=== PATIENT | male | born 1955 | race Caucasian/White ===

== ENCOUNTER 2020-02-24 11:03 | Outpatient (CLI) | payer MEDICARE, SELFPAY ==
--- NOTE | ~2020-02-24 | US_ITS ---
EXAMINATION: US thyroid DATE: 02/24/2020 11:37 INDICATION: Nontoxic multinodular goiter TECHNIQUE: Multiple ultrasound images of the thyroid were obtained. COMPARISON: None. FINDINGS: The right thyroid lobe measures 5.4 x 2.1 x 2.0 cm. The left thyroid lobe measures 4.6 x 1.9 x 1.7 c m. The thyroid isthmus measures 11 mm in thickness. 9 mm wider than tall solid hypoechoic nodule with smooth margins and without echogenic foci in the right thyroid (TI-RADS 4, moderately suspicious , F NA if >=1.5 cm, annual followup is >1 cm). Similar appearing 4 mm hypoechoic nodule at the thyroid is thmus. There is normal echotexture, echogenicity and vascular flow throughout the thyroid gland. IMPRESSION: 1. A couple of centimeters likely benign bilateral thyroid nodules which do not meet consensus criter ia for biopsy or ultrasound follow-up. Recommend clinical follow-up with repeat imaging if there are changes on physical exam. Reviewed, dictated and finalized at location A. IMPRESSION: 1. A couple of centimeters likely benign bilateral thyroid nodules which do not meet consensus criteria for biopsy or ultrasound follow-up. Recommend clinical follow-up with repeat imaging if there are changes on physical exam.
== END 2020-02-24 11:04 | disposition home or self-care (01) ==
LOC: ANHIMG 11:06
PROVIDERS: PCP Internal Medicine; Visit Provider Nurse Practitioner
DX: E04.2 Nontoxic multinodular goiter (principal)
CPT/HCPCS: 76536

== ENCOUNTER 2020-04-06 07:45 | Outpatient (CLI) | payer MEDICARE, SELFPAY ==
[2020-04-06 08:17] LABS: Alanine Aminotransferase 20 U/L (4-50); Albumin Level 4.4 g/dL (3.5-5.1); Alkaline Phosphatase 88 U/L (38-126); Aspartate Amino Transferase 25 U/L (17-59); Bilirubin,Total 0.4 mg/dL (0.2-1.3); Blood Urea Nitrogen 18 mg/dL (9-20); Calcium 9.3 mg/dL (8.4-10.2); Carbon Dioxide 26 mmol/L (22-30); Chloride 105 mmol/L (98-107); Cholesterol 141 mg/dL (0-200); Estimated Glomerular Filt Rate > 60; Glucose 106 mg/dL (75-110); HDL Direct 23 mg/dL; Potassium 4.6 mmol/L (3.4-5.0); Sodium 138 mmol/L (137-145); Triglycerides 200 mg/dL (<150)
[2020-04-06 08:28] LABS: LDL Cholesterol Direct 83 mg/dL
[2020-04-06 08:55] LABS: Vitamin D 25 Hydroxy 59.7 ng/mL
== END 2020-04-06 07:46 | disposition home or self-care (01) ==
PROVIDERS: PCP Internal Medicine; Visit Provider Internal Medicine
DX: E78.5 Hyperlipidemia, unspecified (principal); I10 Essential (primary) hypertension; E53.8 Deficiency of other specified B group vitamins; E55.9 Vitamin D deficiency, unspecified
CPT/HCPCS: 36415; 80053; 80061; 82306; 82607

== ENCOUNTER 2020-08-21 13:09 | Outpatient (CLI) | payer MEDICARE, SELFPAY ==
[2020-08-21 14:10] LABS: Alanine Aminotransferase 22 U/L (4-50); Albumin Level 4.3 g/dL (3.5-5.1); Alkaline Phosphatase 85 U/L (38-126); Anion Gap 8 mmol/L (8-16); Aspartate Amino Transferase 25 U/L (17-59); Bilirubin,Total 0.5 mg/dL (0.2-1.3); Blood Urea Nitrogen 15 mg/dL (9-20); Calcium 9.5 mg/dL (8.4-10.2); Carbon Dioxide 31 mmol/L (22-30); Chloride 103 mmol/L (98-107); Cholesterol 150 mg/dL (0-200); Estimated Glomerular Filt Rate > 60; Glucose 92 mg/dL (75-110); HDL Direct 28 mg/dL; Potassium 3.9 mmol/L (3.4-5.0); Sodium 142 mmol/L (137-145); Triglycerides 216 mg/dL (<150)
[2020-08-21 14:21] LABS: LDL Cholesterol Direct 92 mg/dL
[2020-08-21 14:41] LABS: Prostate Specific Antigen 0.2 ng/mL (< OR = 4.0); Vitamin D 25 Hydroxy 43.5 ng/mL
== END 2020-08-21 13:10 | disposition home or self-care (01) ==
PROVIDERS: PCP Internal Medicine; Visit Provider Nurse Practitioner
DX: E78.5 Hyperlipidemia, unspecified (principal); E53.8 Deficiency of other specified B group vitamins; E55.9 Vitamin D deficiency, unspecified; C61 Malignant neoplasm of prostate
CPT/HCPCS: 36415; 80053; 80061; 82306; 82607; 84153

== ENCOUNTER 2020-12-08 07:37 | Outpatient (CLI) | payer MEDICARE, SELFPAY ==
--- NOTE | ~2020-12-08 | US_ITS ---
EXAMINATION: US thyroid DATE: 12/08/2020 09:03 INDICATION: Multinodular goiter TECHNIQUE: Multiple ultrasound images of the thyroid were obtained. COMPARISON: 02/24/2020 FINDINGS: The right thyroid lobe measures 6.2 x 2.4 x 1.9 cm. The left thyroid lobe measures 5.5 x 2.1 x 1.8 c m. Thyroid isthmus measures 6 mm in thickness. There are a couple wider than tall is slightly hypoech oic solid nodules in the right thyroid lobe with ill-defined margins and without echogenic foci (TI-R ADS 4, moderately suspicious , FNA if >=1.5 cm, annual followup is >=1 cm) measuring 10 mm and 8 mm i n maximal diameter. There is normal echotexture, echogenicity and vascular flow throughout the thyroi d gland. IMPRESSION: 1. There are a couple 10 mm and 8 mm TI RADS 4 right thyroid nodules for which 1 year follow-up ultra sound would be recommended. Reviewed, dictated and finalized at location B. [employer] IMPRESSION: 1. There are a couple 10 mm and 8 mm TI RADS 4 right thyroid nodules for which 1 year follow-up ultrasound would be recommended.
--- NOTE | ~2020-12-08 | XR_ITS ---
EXAMINATION: XR chest 2V DATE: 12/08/2020 09:00 INDICATION: Nicotine dependence, unspecified, uncomplicated. TECHNIQUE: Frontal and lateral views of the chest were obtained. COMPARISON: Chest 2 views 10/08/2013 FINDINGS: There is mild atelectasis in the lower lung zones. No pleural effusion or pneumothorax. The heart size is normal. Surgical clips in the right upper quadrant are likely from cholecystectomy. A chronic perihepatic body in left upper quadrant may be shrapnel. IMPRESSION: 1. Mild atelectasis in the lower lung zones. Reviewed, dictated and finalized at location A. E FINISHER
[2020-12-08 08:31] LABS: Hematocrit 42.7 % (42.0-52.0); Hemoglobin 14.6 g/dL (14.0-18.0); Mean Corpuscular HGB Conc 34.2 g/dl (32-36); Mean Corpuscular Hemoglobin 30.8 pg (26-34); Mean Corpuscular Volume 90.1 fl (80-100); Mean Platelet Volume 10.1 fl (7.4-10.4); Platelet Count Result 215 k/mm3 (150-375); Red Blood Count 4.74 M/mm3 (4.6-6.20); Red Cell Distribution Width 12.3 % (11.5-14.5); White Blood Count 4.7 K/mm3 (4.5-10.0)
[2020-12-08 08:48] LABS: Alanine Aminotransferase 26 U/L (4-50); Albumin Level 4.2 g/dL (3.5-5.1); Alkaline Phosphatase 69 U/L (38-126); Anion Gap 5 mmol/L (8-16); Aspartate Amino Transferase 27 U/L (17-59); Bilirubin,Total 0.6 mg/dL (0.2-1.3); Blood Urea Nitrogen 12 mg/dL (9-20); Calcium 9.4 mg/dL (8.4-10.2); Carbon Dioxide 31 mmol/L (22-30); Chloride 106 mmol/L (98-107); Cholesterol 137 mg/dL (0-200); Estimated Glomerular Filt Rate > 60; Glucose 101 mg/dL (75-110); HDL Direct 28 mg/dL; Potassium 4.2 mmol/L (3.4-5.0); Sodium 142 mmol/L (137-145); Triglycerides 193 mg/dL (<150)
[2020-12-08 08:59] LABS: LDL Cholesterol Direct 75 mg/dL
[2020-12-08 10:17] LABS: Vitamin D 25 Hydroxy 49.2 ng/mL
== END 2020-12-08 07:38 | disposition home or self-care (01) ==
PROVIDERS: PCP Internal Medicine; Visit Provider Nurse Practitioner
DX: E78.5 Hyperlipidemia, unspecified (principal); R53.83 Other fatigue; E55.9 Vitamin D deficiency, unspecified; E04.2 Nontoxic multinodular goiter; F17.200 Nicotine dependence, unspecified, uncomplicated
CPT/HCPCS: 36415; 71046; 76536; 80053; 80061; 82306; 84443; 85027

== ENCOUNTER 2021-06-03 12:09 | Outpatient (CLI) | payer MEDICARE, SELFPAY ==
--- NOTE | ~2021-06-03 | XR_ITS ---
EXAMINATION: XR hip RT min 2V DATE: 06/03/2021 12:29 INDICATION: Right hip pain. TECHNIQUE: 2 views of right hip were obtained. COMPARISON: Pelvis radiographs 12/10/2005 FINDINGS: Bone alignment is normal. No fracture. There is mild right hip osteoarthritis. There are sm all curvilinear densities overlying the pubic symphysis, likely from prior surgery. IMPRESSION: 1. Mild right hip osteoarthritis. Reviewed, dictated and finalized at location A.
== END 2021-06-03 12:10 | disposition home or self-care (01) ==
LOC: ANHIMG 12:11
PROVIDERS: PCP Internal Medicine; Visit Provider Internal Medicine
DX: M16.11 Unilateral primary osteoarthritis, right hip (principal); I10 Essential (primary) hypertension; Z51.81 Encounter for therapeutic drug level monitoring; Z79.899 Other long term (current) drug therapy
CPT/HCPCS: 73502

== ENCOUNTER 2021-09-22 15:22 | Outpatient (CLI) | payer MEDICARE, SELFPAY ==
[2021-09-22 17:28] LABS: Alanine Aminotransferase 39 U/L (4-50); Albumin Level 4.4 g/dL (3.5-5.1); Alkaline Phosphatase 74 U/L (38-126); Anion Gap 5 mmol/L (8-16); Aspartate Amino Transferase 32 U/L (17-59); Bilirubin,Total 0.3 mg/dL (0.2-1.3); Blood Urea Nitrogen 16 mg/dL (9-20); Calcium 9.3 mg/dL (8.4-10.2); Carbon Dioxide 27 mmol/L (22-30); Chloride 105 mmol/L (98-107); Cholesterol 133 mg/dL (0-200); Estimated Glomerular Filt Rate > 60; Glucose 88 mg/dL (65-110); HDL Direct 28 mg/dL; Sodium 137 mmol/L (137-145); Triglycerides 237 mg/dL (<150); Uric Acid 7.9 mg/dL (3.5-8.5)
[2021-09-22 17:39] LABS: LDL Cholesterol Direct 74 mg/dL
[2021-09-22 17:59] LABS: Prostate Specific Antigen 0.2 ng/mL (< OR = 4.0)
[2021-09-22 21:00] LABS: Vitamin D 25 Hydroxy 42.4 ng/mL
== END 2021-09-22 15:23 | disposition home or self-care (01) ==
LOC: ANHLAB 15:25
PROVIDERS: PCP Internal Medicine; Visit Provider Internal Medicine
DX: I10 Essential (primary) hypertension (principal); Z51.81 Encounter for therapeutic drug level monitoring; E78.5 Hyperlipidemia, unspecified; Z12.5 Encounter for screening for malignant neoplasm of prostate; E55.9 Vitamin D deficiency, unspecified; E53.8 Deficiency of other specified B group vitamins; E04.2 Nontoxic multinodular goiter; M10.9 Gout, unspecified; Z79.899 Other long term (current) drug therapy
CPT/HCPCS: 36415; 80053; 80061; 82306; 82607; 84153; 84443; 84550; G0103

== ENCOUNTER → 2021-10-05 08:01 | Outpatient (CLI) | payer MEDICARE, SELFPAY ==
[2021-10-06 03:58] LABS: SARS-CoV-2 RNA PCR Negative
== END ==
PROVIDERS: PCP Internal Medicine; Visit Provider Nurse Practitioner
DX: R68.89 Other general symptoms and signs (principal); Z20.822 Contact with and (suspected) exposure to COVID-19
CPT/HCPCS: C9803; U0003; U0005

== ENCOUNTER 2022-02-25 08:49 | Outpatient (CLI) | payer MEDICARE, SELFPAY ==
--- NOTE | ~2022-02-25 | CT_ITS ---
EXAMINATION:CT diagnostic chest wo con DATE: 02/25/2022 09:15 INDICATION: Contact with and suspected exposure to asbestos. TECHNIQUE: Computed tomography (CT) of the chest was performed without intravenous contrast. Automate d exposure control and iterative reconstruction technique were employed. The dose-length product (DLP ) was 456.19 mGy-cm. COMPARISON: CT abdomen and pelvis 03/20/2013 FINDINGS: The lungs demonstrate mild atelectasis. No bronchiectasis or honeycombing. No pleural plaqu es are identified. No pleural effusion. A calcified left hilar lymph node is consistent with old gran ulomatous disease. The heart size is normal. There are coronary artery calcifications. No pericardial effusion. There are changes of cholecystectomy. There is shrapnel in left upper quadrant of the abdo men. There is mild thoracic spondylosis. There is mild chronic height loss of multiple vertebral bodi es. IMPRESSION: 1. No pleural plaques or chronic interstitial lung disease. Reviewed, dictated and finalized at location A.
== END 2022-02-25 08:50 | disposition home or self-care (01) ==
PROVIDERS: PCP Internal Medicine; Visit Provider Internal Medicine
DX: Z77.090 Contact with and (suspected) exposure to asbestos (principal)
CPT/HCPCS: 71250

== ENCOUNTER 2022-08-10 16:26 | Outpatient (CLI) | payer MEDICARE, SELFPAY ==
[2022-08-10 17:16] LABS: Alanine Aminotransferase 32 U/L (6-50); Albumin Level 4.6 g/dL (3.5-5.1); Alkaline Phosphatase 72 U/L (38-126); Anion Gap 10 mmol/L (8-16); Aspartate Amino Transferase 33 U/L (17-59); Bilirubin,Total 0.6 mg/dL (0.2-1.3); Blood Urea Nitrogen 18 mg/dL (9-20); Calcium 9.2 mg/dL (8.4-10.2); Carbon Dioxide 28 mmol/L (22-30); Chloride 102 mmol/L (98-107); Cholesterol 147 mg/dL (0-200); Estimated Glomerular Filt Rate > 60; Glucose 96 mg/dL (65-110); HDL Direct 29 mg/dL; Potassium 3.9 mmol/L (3.4-5.0); Sodium 140 mmol/L (137-145); Triglycerides 274 mg/dL (<150); Uric Acid 7.5 mg/dL (3.5-8.5)
[2022-08-10 17:27] LABS: LDL Cholesterol Direct 71 mg/dL
[2022-08-10 17:47] LABS: Prostate Specific Antigen 0.2 ng/mL (< OR = 4.0)
== END 2022-08-10 16:27 | disposition home or self-care (01) ==
LOC: ANHLAB 16:27
PROVIDERS: PCP Internal Medicine; Visit Provider Internal Medicine
DX: I10 Essential (primary) hypertension (principal); Z51.81 Encounter for therapeutic drug level monitoring; M10.9 Gout, unspecified; E78.5 Hyperlipidemia, unspecified; C61 Malignant neoplasm of prostate; E53.8 Deficiency of other specified B group vitamins
CPT/HCPCS: 36415; 80053; 80061; 82607; 84153; 84550

== ENCOUNTER 2022-09-15 12:50 | Outpatient (CLI) | payer MEDICARE, SELFPAY ==
--- NOTE | 2022-09-15 14:37 | P.PCNPFT_ITS ---
PFT Procedure Performed PFT Procedure Performed Plethysmography (Lung Vol) Diffusing Cap (DLCO) Flow Vol Loop Spirometry w/o Bronchodil PFT Interpretation Lung volumes were measured with the body plethysmography method. The diminished expiratory reserve volume is related to obesity. The remaining lung volumes are unremarkable. Spirometry showed normal expiratory flow rates and a normal FEV1 to FVC ratio 79%. No post-bronchodilator study was carried out. Lung diffusion capacity is within the normal range at 97% predicted. The flow- volume loop is unremarkable. Impression: Spirometry, lung volumes, and lung diffusion capacity all within the normal range.
== END 2022-09-15 12:51 | disposition home or self-care (01) ==
LOC: ANHPFT 12:51
PROVIDERS: PCP Internal Medicine; Visit Provider Nurse Practitioner
DX: J44.9 Chronic obstructive pulmonary disease, unspecified (principal)
CPT/HCPCS: 94375; 94726; 94729

== ENCOUNTER 2023-02-23 13:01 | Outpatient (CLI) | payer MEDICARE, SELFPAY ==
[2023-02-23 13:50] LABS: Alanine Aminotransferase 37 U/L (6-50); Albumin Level 4.2 g/dL (3.5-5.1); Alkaline Phosphatase 58 U/L (38-126); Anion Gap 6 mmol/L (8-16); Aspartate Amino Transferase 34 U/L (17-59); Bilirubin,Total 0.4 mg/dL (0.2-1.3); Blood Urea Nitrogen 18 mg/dL (9-20); Calcium 8.8 mg/dL (8.4-10.2); Carbon Dioxide 29 mmol/L (22-30); Chloride 104 mmol/L (98-107); Cholesterol 170 mg/dL (0-200); Estimated Glomerular Filt Rate 60; Glucose 98 mg/dL (65-110); HDL Direct 32 mg/dL; Potassium 3.9 mmol/L (3.4-5.0); Sodium 139 mmol/L (137-145); Triglycerides 361 mg/dL (<150)
[2023-02-23 14:01] LABS: LDL Cholesterol Direct 108 mg/dL
== END 2023-02-23 13:02 | disposition home or self-care (01) ==
LOC: ANHLAB 13:03
PROVIDERS: PCP Family Medicine; Visit Provider Nurse Practitioner
DX: E53.8 Deficiency of other specified B group vitamins (principal); E78.5 Hyperlipidemia, unspecified
CPT/HCPCS: 36415; 80053; 80061; 82607

== ENCOUNTER 2023-05-08 11:26 | Outpatient (CLI) | payer MEDICARE, SELFPAY ==
[2023-05-08 11:57] LABS: Basophils Percent Auto 0.7 % (0.2-1.2); Eosinophils Absolute Auto 0.1 K/mm3 (0-0.3); Eosinophils Percent Auto 1.2 % (0-4.4); Hematocrit 41.6 % (42.0-52.0); Immature Granulocyte Absolute 0.02 K/mm3 (0.00-0.031); Immature Granulocyte Percent A 0.5 % (0-0.5); Lymphocytes Absolute Auto 1.14 K/mm3 (0.9-3.2); Lymphocytes Percent Auto 28.3 % (18.3-44.2); Mean Corpuscular HGB Conc 33.7 g/dl (32-36); Mean Corpuscular Hemoglobin 31.4 pg (26-34); Mean Corpuscular Volume 93.3 fl (80-100); Mean Platelet Volume 9.9 fl (7.4-10.4); Monocytes Absolute Auto 0.3 K/mm3 (0.1-0.6); Monocytes Percent Auto 8.4 % (2.6-8.5); Neutrophils Absolute Auto 2.5 K/mm3 (1.3-6.7); Neutrophils Percent Auto 60.9 % (45.5-73.1); Platelet Count Result 225 k/mm3 (150-375); Red Blood Count 4.46 M/mm3 (4.6-6.20); Red Cell Distribution Width 12.4 % (11.5-14.5)
[2023-05-08 12:11] LABS: Alanine Aminotransferase 29 U/L (6-50); Albumin Level 4.2 g/dL (3.5-5.1); Alkaline Phosphatase 54 U/L (38-126); Amylase 62 U/L (30-110); Anion Gap 4 mmol/L (8-16); Aspartate Amino Transferase 30 U/L (17-59); Bilirubin,Total 0.4 mg/dL (0.2-1.3); Blood Urea Nitrogen 14 mg/dL (9-20); Calcium 8.9 mg/dL (8.4-10.2); Carbon Dioxide 29 mmol/L (22-30); Chloride 107 mmol/L (98-107); Estimated Glomerular Filt Rate > 60; Glucose 113 mg/dL (65-110); Lipase 40 U/L (23-300); Potassium 3.9 mmol/L (3.4-5.0); Sodium 140 mmol/L (137-145)
[2023-05-08 12:24] LABS: Appearance Urine Clear (Clear); Bilirubin Urine Negative (Negative); Blood Urine Negative (Negative); Color Urine Dark Yellow (Yellow); Glucose Urine UA Negative (Negative); Ketones Urine Negative (Negative); Leukocyte Esterase Ur Negative LEU/UL (NEGATIVE); Nitrate Urine Negative (Negative); Protein Urine Negative (Negative); Specific Grav Ur 1.025 (1.001-1.035); pH Urine 6.5 (5.0-9.0)
[2023-05-08 12:35] LABS: Add Urine Microscopic? NO
== END 2023-05-08 11:27 | disposition home or self-care (01) ==
LOC: ANHLAB 11:29
PROVIDERS: PCP Nurse Practitioner Family; Visit Provider Nurse Practitioner Family
DX: R10.9 Unspecified abdominal pain (principal)
CPT/HCPCS: 36415; 80053; 81003; 82150; 83690; 85025

== ENCOUNTER 2023-09-22 08:22 | Outpatient (CLI) | payer MEDICARE, SELFPAY ==
[2023-09-22 08:59] LABS: Alanine Aminotransferase 33 U/L (6-50); Albumin Level 4.4 g/dL (3.5-5.1); Alkaline Phosphatase 58 U/L (38-126); Anion Gap 2 mmol/L (8-16); Aspartate Amino Transferase 36 U/L (17-59); Bilirubin,Total 0.6 mg/dL (0.2-1.3); Blood Urea Nitrogen 13 mg/dL (9-20); Calcium 9.4 mg/dL (8.4-10.2); Carbon Dioxide 30 mmol/L (22-30); Chloride 108 mmol/L (98-107); Cholesterol 127 mg/dL (0-200); Estimated Glomerular Filt Rate > 60; Glucose 104 mg/dL (65-110); HDL Direct 33 mg/dL; Potassium 4.6 mmol/L (3.4-5.0); Sodium 140 mmol/L (137-145); Triglycerides 115 mg/dL (<150)
[2023-09-22 09:13] LABS: Hematocrit 43.2 % (42.0-52.0); Hemoglobin 14.4 g/dL (14.0-18.0); Mean Corpuscular HGB Conc 33.3 g/dl (32-36); Mean Corpuscular Hemoglobin 30.7 pg (26-34); Mean Corpuscular Volume 92.1 fl (80-100); Mean Platelet Volume 10.1 fl (7.4-10.4); Platelet Count Result 202 k/mm3 (150-375); Red Blood Count 4.69 M/mm3 (4.6-6.20); Red Cell Distribution Width 12.6 % (11.5-14.5); White Blood Count 4.1 K/mm3 (4.5-10.0)
[2023-09-22 09:14] LABS: LDL Cholesterol Direct 76 mg/dL
== END 2023-09-22 08:23 | disposition home or self-care (01) ==
LOC: ANHLAB 08:24
PROVIDERS: PCP Nurse Practitioner Family; Visit Provider Family Medicine
DX: E04.2 Nontoxic multinodular goiter (principal); E55.9 Vitamin D deficiency, unspecified; E78.5 Hyperlipidemia, unspecified; F11.90 Opioid use, unspecified, uncomplicated; F41.0 Panic disorder [episodic paroxysmal anxiety]; G47.33 Obstructive sleep apnea (adult) (pediatric); G89.29 Other chronic pain; I10 Essential (primary) hypertension; J44.9 Chronic obstructive pulmonary disease, unspecified; J45.20 Mild intermittent asthma, uncomplicated; K21.9 Gastro-esophageal reflux disease without esophagitis; M10.9 Gout, unspecified; M13.0 Polyarthritis, unspecified; M54.6 Pain in thoracic spine; M79.7 Fibromyalgia; R00.2 Palpitations; R53.83 Other fatigue; R59.0 Localized enlarged lymph nodes
CPT/HCPCS: 36415; 80053; 80061; 85027

== ENCOUNTER 2023-10-20 08:36 | Outpatient (CLI) | payer MEDICARE, SELFPAY ==
--- NOTE | ~2023-10-20 | CT_ITS ---
EXAMINATION: CT brain & sinus wo con DATE: 10/20/2023 09:29 INDICATION: Persistent headache post recent head injury TECHNIQUE: Computed tomography (CT) of the head and paranasal sinuses was performed without intraveno us contrast. Sagittal and coronal reconstructions were performed. The mA was adjusted according to pa tient size. Iterative reconstruction technique was employed. The dose-length product was 1382.12 mGy- cm. COMPARISON: head CT dated 11/25/2013 FINDINGS: No fracture. No acute intracranial hemorrhage, acute infarction or abnormal extra axial fluid collect ion. There is mild scattered white matter hypoattenuation consistent with chronic small vessel ischem ic disease. Symmetric prominence of the sulci consistent with mild age-appropriate diffuse cerebral v olume loss. Ventricles are normal and symmetric. No mass/mass effect. Mild mucoperiosteal thickening the bilateral ethmoid and maxillary sinuses as well as at the bilateral frontoethmoidal recesses. Scott ateral ostiomeatal units are patent. There is dental disease with multiple missing teeth and dental c titus associated with the left maxillary premolars, the more anterior with associated periapical luce ncy which erodes through the lateral cortex but without evident subperiosteal abscess. The orbits and mastoid air cells are normal. IMPRESSION: 1. No fracture or acute intracranial process. 2. Age-related changes including mild diffuse volume loss and mild scattered white matter hypoattenua tion consistent with chronic small vessel ischemic disease. 3. Mild mucoperiosteal thickening in the paranasal sinuses. 4. Dental disease with periapical erosion at the more anterior left maxillary premolar. Reviewed, dictated and finalized at location A. [employer] IMPRESSION: 1. No fracture or acute intracranial process. 2. Age-related changes including mild diffuse volume loss and mild scattered wh ite matter hypoattenuation consistent with chronic small vessel ischemic diseas e. 3. Mild mucoperiosteal thickening in the paranasal sinuses. 4. Dental disease with periapical erosion at the more anterior left maxillary p remolar.
== END 2023-10-20 08:37 | disposition home or self-care (01) ==
LOC: ANHIMG 08:37
PROVIDERS: PCP Family Medicine; Visit Provider Family Medicine
DX: S09.90XA Unspecified injury of head, initial encounter (principal); G44.52 New daily persistent headache (NDPH); X58.XXXA Exposure to other specified factors, initial encounter; R93.0 Abnormal findings on diagnostic imaging of skull and head, not elsewhere classified
CPT/HCPCS: 70450; 70486

== ENCOUNTER 2024-12-09 11:42 | Outpatient (CLI) | payer MEDICARE, SELFPAY ==
[2024-12-09 12:37] LABS: Hematocrit 40.3 % (42.0-52.0); Hemoglobin 13.6 g/dL (14.0-18.0); Mean Corpuscular HGB Conc 33.7 g/dl (32-36); Mean Corpuscular Hemoglobin 30.5 pg (26-34); Mean Corpuscular Volume 90.4 fl (80-100); Mean Platelet Volume 9.8 fl (7.4-10.4); Platelet Count Result 226 k/mm3 (150-375); Red Blood Count 4.46 M/mm3 (4.6-6.20); Red Cell Distribution Width 12.7 % (11.5-14.5); White Blood Count 4.4 K/mm3 (4.5-10.0)
[2024-12-09 13:02] LABS: Vitamin D 25 Hydroxy 43.3 ng/mL
[2024-12-09 19:12] LABS: Alanine Aminotransferase 43 U/L (6-50); Albumin Level 4.3 g/dL (3.5-5.1); Alkaline Phosphatase 66 U/L (38-126); Anion Gap 7 mmol/L (4-12); Aspartate Amino Transferase 41 U/L (17-59); Bilirubin,Total 0.4 mg/dL (0.2-1.3); Blood Urea Nitrogen 11 mg/dL (9-20); Calcium 9.6 mg/dL (8.4-10.2); Carbon Dioxide 27 mmol/L (22-30); Chloride 104 mmol/L (98-107); Estimated Glomerular Filt Rate > 60; Glucose 91 mg/dL (65-110); Potassium 4.5 mmol/L (3.4-5.0); Sodium 138 mmol/L (137-145)
[2024-12-09 19:48] LABS: Prostate Specific Antigen 0.2 ng/mL (< OR = 4.0)
== END 2024-12-09 11:43 | disposition home or self-care (01) ==
LOC: ANHLAB 11:47
PROVIDERS: PCP Family Medicine; Visit Provider Family Medicine
DX: Z12.5 Encounter for screening for malignant neoplasm of prostate (principal); C61 Malignant neoplasm of prostate; E78.5 Hyperlipidemia, unspecified; K21.9 Gastro-esophageal reflux disease without esophagitis; G47.33 Obstructive sleep apnea (adult) (pediatric); E55.9 Vitamin D deficiency, unspecified; E04.2 Nontoxic multinodular goiter; E53.8 Deficiency of other specified B group vitamins; M79.7 Fibromyalgia; M13.0 Polyarthritis, unspecified; R00.2 Palpitations; R53.1 Weakness; F17.200 Nicotine dependence, unspecified, uncomplicated
CPT/HCPCS: 36415; 80053; 82306; 82607; 84153; 84443; 85027; G0103

== ENCOUNTER 2024-12-26 13:08 | Outpatient (CLI) | payer MEDICARE, SELFPAY ==
--- OUTSIDE RECORDS SUMMARY | 2024-12-26 13:34 | XMS_ITS | Clinical Summary ---
Author Organization [facility] Address [facility] [place] [address] Care Team Providers Care Sales Enablement Manager Name Role Phone Jesus Morrow MD Primary Care Provider [phone] Allergies Active Allergy Reactions Criticality Noted Date Comments Lidocaine Other (see comment) Low 11/15/2018 FLUSHING Wasp Venom Swelling 12/21/2020 Medications lorazepam 1 MG tablet Take 1 tablet (1 mg total) by mouth 3 (three) times daily as needed for Anxiety. 2 03/15/2018 Active hydrocodone-ayush taminophen 7.5-325 MG tablet Take 1 tablet by mouth every 6 (six) hours as needed for Pain. 0 03/15/2018 Active multivitamin tablet Take 1 tablet by mouth daily. Active pantoprazole EC 40 MG tablet Take 1 tablet (40 mg total) by mouth daily. 12/18/2020 Active metoprolol succinate ER 25 MG 24 hr tablet Take 1 tablet (25 mg total) by mouth daily. 30 tablet 12/21/2020 Active atorvastatin (LIPITOR) 20 MG tablet Take 1 tablet (20 mg total) by mouth nightly at bedtime. Active fenofibrate (TRICOR) 54 MG tablet Take 1 tablet (54 mg total) by mouth daily. Active dicyclomine (BENTYL) 20 MG tablet Take 1 tablet (20 mg total) by mouth 4 (four) times daily before meals and nightly. 11/16/2023 Active Active Problems Problem Noted Date Diagnosed Date Panic attacks 03/01/2024 SBO (small bowel obstruction) ([facility] HHS/HCC) 02/29/2024 Small bowel obstruction ([facility] HHS/[facility]) 2022 Psychophysiological insomnia 02/27/2023 Primary hypertension 01/20/2023 Pure hypertriglyceridemia 01/20/2023 HOLLIS (obstructive sleep apnea) 04/12/2022 Sinus bradycardia 04/07/2022 Abdominal pain 11/04/2021 Overview (03/01/2024): Added automatically from request for surgery [id number] Esophagitis 11/04/2021 Overview (03/01/2024): Added automatically from request for surgery [id number] Last Assessment & Plan: EGD done in 2019 also showed a salmon-colored mucosa island just proximal to the GEJ. 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 He has GERD and currently on protonix 40 mg every day. 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 Ileitis improved after about 4 months, with resolution of symptoms. He return today reporting abdominal bloating, with LUQ pain, and postpandrial diarrhea with no significant improvement with use of bentyl. Plan -Increase bentyl to 20 mg pre-meal and at bedtime. -Repeat CT adomen and pelvis w/ contrast. -Repeat colonoscopy after CTAP. Encounter for follow-up surveillance of prostate cancer 02/19/2021 Palpitations 01/19/2021 Overview (03/01/2024): Last Assessment & Plan: Based on his recent Holter, the strips of which I printed out to show him, symptoms of palpitations often occur when there is nothing going on with his heart rhythm. I think anxiety is playing a significant role, and recommended that he talk to his primary care physician about treatment for this that would be more long-acting than p.r.n. Ativan. Alternatively, counseling may be beneficial. Multiple thyroid nodules 05/07/2019 Gastrointestinal hemorrhage associated with olivia ritis 10/30/2018 Overview (03/01/2024): Added automatically from request for surgery [id number] Melena 10/30/2018 Overview (03/01/2024): Added automatically from request for surgery [id number] Sore throat 10/30/2018 Adenocarcinoma of prostate ([facility]/HCC [facility]) 06/2018 Elevated PSA 06/13/2018 Overview (03/01/2024): Added automatically from request for surgery [id number] Hypercholesteremia 05/28/2017 Overview (03/01/2024): Last Assessment & Plan: Well controlled, continue simvastatin Chest pain 05/22/2017 Overview (03/01/2024): Last Assessment & Plan: Noncardiac. Recent cardiac catheterization was very reassuring. PVC's (premature ventricular contractions) 08/15 Overview (03/01/2024): Premature beats Last Assessment & Plan: Patient has symptomatic PVCs but also certainly has palpitations due to non PVC mediated events as well based on prior ambulatory monitors. Last PVC burden was 2-3%. He reports poor control of symptoms after initial improvement on current dose of metoprolol so we will increase further. I advised him that some of his symptoms are likely directly attributed to PVCs however a fair burden of symptoms may also be due to other mechanisms. 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 Vitreous degeneration 11/26/2013 Hernia of anterior abdominal wall 04/25/2013 Encounters Date Type Department Care Team Description 11/19/2024 3:49 PM [facility] - 11/19/2024 10:01 PM [facility] Emergency [facility] [place] [address] Keith Lyman MD Chest Pain Discharge Disposition: Home or Self Care (Routine Discharge) 11/19/2024 Travel 10/21/2024 8:01 AM [employer] - 10/21/2024 12:43 PM [facility] Emergency [facility] [place] [address] Endy Ramirez PA Eye Problem; Chest Pain Discharge Disposition: Other Facility with Planned Inpatient Readmission 10/21/2024 Travel from Last 3 Months Immunizations Name Administration Dates Next Due PFIZER COVID-19 (ORIGINAL FO RMULATION, PURPLE CAP) mRNA, LNP-S, PF, 30 MCG/0.3 ML DOSE 01/15/2021,12/18/2020 Family History Medical History Relation Comments Lung Cancer Brother 1 Prostate Cancer Brother 2 Lung Cancer Mother Lung Cancer Sister Relation Status Comments Brother 1 Brother 2 Father Mother Sister Social History Tobacco Use Types Packs/Day Years Used Date Smoking Tobacco: Some Days Cigars Smokeless Tobacco: Current Tobacco Cessation:Ready to Q uit: Not Asked; Counseling Given: Not Answered Comments:10 small cigars daily for 30 yrs Alcohol Use Standard Drinks/Week Comments Yes 0 (1 standard drink = 0.6 oz pur e alcohol) rarely [facility] Utilities Answer Date Recorded In the past 12 months has e Virtual View App, gas, oil, or water [employer] threatened to shut off services in your home? No 02/29/2024 Humiliation, Afraid, Rape, and Kick questionnair e Answer Date Recorded Within the last year, have y ou been afraid of your partner or ex-partner? No 02/29/2024 Within the last year, have y ou been humiliated or emotionally abused in other ways by your partner or ex-partner? No Within the last year, have y ou been kicked, hit, slapped, or otherwise physically hurt by your partner or ex-partner? No 02/29/2024 Within the last year, have y ou been raped or forced to have any kind of sexual activity by your partner or ex-partner? No 02/29/2024 Social Connection and Isolation Panel [NHANES] A nswer Date Recorded In a typical week, how many times do you talk on the phone with family, friends, or neighbors? Twice a week 06/27/20 How often do you get togethe r with friends or relatives? Twice a week 06/27/2023 How often do you attend chur ch or religion services? 1 to 4 times per year 06/27/2023 Do you belong to any clubs o r organizations such as protestant groups, unions, fraternal or athletic groups, or school groups? No 06/27/2023 How often do you attend meet ings of the clubs or organizations you belong to? Never 06/27/2023 Are you , , di vorced, , never , or living with a partner? 06/27/2023 AUDIT-C Answer Date Recorded Q1: How often do you have a drink containing alc ohol? Monthly or less 06/27/2023 Q2: How many drinks containi ng alcohol do you have on a typical day when you are drinking? 1 or 2 06/27/2023 Q3: How often do you have si x or more drinks on one occasion? Never 06/27/2023 Overall Financial Resource Strain (CARDIA) Answe r Date Recorded How hard is it for you to pa y for the very basics like food, housing, medical care, and heating? Not hard at all 02/29/2024 PHQ-2 Answer Date Recorded Patient Health Questionnaire-2 Score 0 06/27/2023 [facility] [place] [facility] - Occupational Stress Questionnaire Answer Date Recorded Do you feel stress - tense, restless, nervous, or anxious, or unable to sleep at night because your mind is troubled all the time - these days? Only a little 06/27/2023 Exercise Vital Sign Answer Date Recorde d On average, how many days pe r week do you engage in moderate to strenuous exercise (like a brisk walk)? 2 days 06/27/2023 On average, how many minutes do you engage in exercise at this level? 40 min 06/27/2023 Hunger Vital Sign Answer Date Recorded Within the past 12 months, y ou worried that your food would run out before you got the money to buy more. Never true 02/29/20 24 Within the past 12 months, t he food you bought just didn't last and you didn't have money to get more. Never true 02/29/2024 PRAPARE - Transportation Answer Date Re corded In the past 12 months, has l ack of transportation kept you from medical appointments or from getting medications? No 02/07 In the past 12 months, has l ack of transportation kept you from meetings, work, or from getting things needed for daily living? No 02/29/2024 Housing Stability Vital Sign Answer Delfino e Recorded In the last 12 months, was t here a time when you were not able to pay the mortgage or rent on time? No 11/04/2023 In the last 12 months, how many places have you lived? 1 11/04/2023 In the last 12 months, was t here a time when you did not have a steady place to sleep or slept in a chcf (including now)? No 11/04/2023 Housing Stability Vital Sign Answer Delfino e Recorded In the last 12 months, was t here a time when you were not able to pay the mortgage or rent on time? No 02/29/2024 In the past 12 months, how m any times have you moved where you were living? 1 02/29/2024 At any time in the past 12 m [facility], were you homeless or living in a chcf (including now)? No 02/29/2024 Sex and Gender Information Value Date Recorded Sex Assigned at Male 11/19/2024 3:41 PM [employer] Legal Sex Male 8:04 PM CDT Gender Identity Not on file Sexual Orientation Not on file Last Filed Vital Signs Vital Sign Reading Time Taken Comments Blood Pressure 160/86 11/19/2024 10:01 PM [employer] Pulse 58 11/19/2024 3:23 PM [employer] Temperature 36.6 C (97.8 F) 11/19/2024 3:32 PM [employer]ER Respiratory Rate 18 11/19/2024 3:23 PM [employer] Oxygen Saturation 98% 11/19/2024 3:23 PM [employer] Inhaled Oxygen Concentration - - Weight 104 kg (229 lb 4.5 oz) 11/19/2024 3:43 PM [employer] Height 180.3 cm (5' 11 ) 10/21/2024 7:43 AM [employer] Body Mass Index 31.98 10/21/2024 7:43 AM [employer]ER Plan of Treatment Health Maintenance Due Date Last Done Comments Colorectal Cancer Screening Colonoscopy (10 Years) 1955 Pneumococcal Vaccine: 65+ Years (1 of 2 - PCV) 1960 Hepatitis C 1972 DTaP, Tdap and Td Vaccines (1 - Tdap) 1973 Zoster Vaccines (1 of 2) 2004 Annual Medicare Wellness Visit 2019 COVID-19 Vaccine ( - season) 2024 01/15/2021, 12/18/2020 Influenza Adult (#1) 2024 RSV Immunization or 60+ Years (1 - 1-dose 75+ series) 2029 AAA SCREENING Completed 10/22/2024, 10/09, 10/16/2024, Additional history exists Meningococcal B Vaccine Aged Out No l onger eligible based on patient's age to complete this topic Meningococcal Vaccine Aged Out No malia ellis eligible based on patient's age to complete this topic RSV Immunizations Under 20 Months Aged Out No longer eligible based on patient's age to complete this topic Goals Goal Patient Goal Type Associated Problems Recent Progress Patient-Stated? Author Health - patient able to perform ADLs independently Lifestyle No Gianni salazar, Efren Mcfadden RNpolymer materials consultant Procedure Name Priority Date/Time Associated Diagnosis Comments ELECTROCARDIOGRAM REPORT Routine 8:31 PM [employer] ECG 12-LEAD STAT 11/19/2024 8:10 PM [employer] TROPONIN, QUANT STAT 11/19/2024 7:51 PM [employer] ELECTROCARDIOGRAM REPORT Routine 025 5:30 PM [employer] XR CHEST PORTABLE STAT 11/19/2024 4:1 4 PM [employer] PRO-BRAIN NATRIURETIC PEPTIDE STAT 11/19/2024 3:39 PM [employer] TROPONIN, QUANT STAT 11/19/2024 3:39 PM [employer] COMPREHENSIVE METABOLIC PANEL STAT 11/19/2024 3:39 PM [employer] CBC W/DIFF AUTOMATED STAT 11/19/2024 3:39 PM [employer] ECG 12-LEAD STAT 11/19/2024 3:28 PM [employer] TROPONIN, QUANT STAT 10/21/2024 11:32 AM [employer] ECG 12-LEAD STAT 10/21/2024 11:31 AM INSPECTOR P[employer] CT HEAD WO CON STAT 10/21/2024 9:29 AM [employer] XR CHEST PORTABLE STAT 10/21/2024 8:5 0 AM [employer] TROPONIN, QUANT STAT 10/21/2024 8:31 AM [employer]ER COMPREHENSIVE METABOLIC PANEL STAT 10/21/2024 8:31 AM [employer] CON[employer] CBC W/DIFF AUTOMATED STAT 10/21/2024 8:31 AM [employer]ER ECG 12-LEAD STAT 10/21/2024 8:01 AM INSPECTOR P[employer] CT ABD+PEL W CON STAT 02/29/2024 3:37 PM CDT from Last 3 Months or Most Recently Relevant to Health Maintenance Results * EKG Reading (11/19/2024 8:31 PM INS[employer]ER) Only the most recent of2 resultswithin the time period is included. Keith Prado MD - 11/19/2024 8:31 PM [employer] Keith Lyman MD 11/19/2024 9:11 PM EKG Reading Date/Time: 11/19/2024 8:31 PM Performed by: Keith Lyman MD Authorized by: Keith Lyman MD Interpreted by ED physician Comparison: compared with previous ECG from 11/19/2024 Rhythm: sinus bradycardia Rate: bradycardic BPM: 51 Comments: Sinus bradycardia. Heart rate 51. Normal axis Norval normal QRS nonspecific ST-T wave changes. Compared to EKG earlier today. Rhythm strip are interpreted 2010 Sinus bradycardia. Heart rate 51. No ectopy us Keith Lyman MD [facility] Final Result * ECG 12 lead (11/19/2024 8:10 PM INS[employer]ER) Only the most recent of4 resultswithin the time period is included. 11/19/2024 8:10 PM INS[employer] CONTAINER Narrative [facility] - 11/20/2024 8:09 AM INSPECTOR [employer] CONTAINER [facility] [address] Test Date: 2024-11-19 Pat Name: SHANA CROSS Department: 41 Room: Gender: Male Board Worker: : 1955 Requested By: KAYLEIGH WALLS Order Number: [id number] Reading : Aleksandar Allen Measurements Intervals [place] Rate: 51 P: 14 [place]: 192 QRS: 28 QRSD: 87 T: 64 QT: 409 QTc: 379 Interpretive Statements SINUS BRADYCARDIA Compared to ECG 11/19/2024 15:28:09 No significant changes E[employer]ER Procedure Note Aleksandar Allen MD - 11/20/2024 [facility] [address] Test Date: 2024-11-19 Pat Name: SHANA CROSS Department: 41 Room: Gender: Male Board Worker: : 1955 Requested By: KAYLEIGH WALLS Order Number: [id number] Reading MD: Aleksandar Allen Measurements Intervals [place] Rate: 51 P: 14 [place]: 192 QRS: 28 QRSD: 87 T: 64 QT: 409 QTc: 379 Interpretive Statements SINUS BRADYCARDIA Compared to ECG 11/19/2024 15:28:09 No significant changes E[employer] CON[employer]ER Keith Lyman MD ECG ORDERABLES Final Result Performing Organization Address City/[facility]/ZIP Co de Phone Number [facility] * TROPONIN, QUANT (11/19/2024 7:51 PM INSPECT[employer] CONTAINER) Only the most recent of4 resultswithin the time period is included. TROPONIN I HIGH SENSITIVITY 8 <79 ng/L 11/19/2024 8:52 PM INSPECT[employer] CONTAINER [facility] Comment: HIGH DOSES OF BIOTIN, TROPONIN-SPECIFIC AUTOANTIBODIES, AND ANTIBODY THERAPY CONTAINING HAMA MAY INTERFERE WITH THIS TEST RESULT. CORRELATION TO CLINICAL HISTORY AND PRESENTATION RECOMMENDED. 11/19/2024 7:5 1 PM INS[employer] CON[employer]ER Keith Lyman MD LABORATORY Final Result Performing Organization Address [facility] Co de Phone Number [facility] [address] [place] [address], [place] [phone] * XR CHEST PORTABLE (11/19/2024 4:14 PM INSPECT[employer] CONTAINER) Only the most recent of2 resultswithin the time period is included. Anatomical Region Laterality Modality Chest Radiographic Amy ging 11/19/2024 4:25 PM [employer]ER Impressions 11/19/2024 4:26 PM [employer]ER =====IMPRESSION:===== 1. Mild cardiomegaly without evidence of CHF. Ordered By: KAYLEIGH WALLS Interpreted By: Kartik Laguerre MD, 11/19/2024 4:25 PM Narrative 11/19/2024 4:26 PM [employer]ER [facility] [address] Examination: Chest x-ray 1 view Exam date/time: 11/19/2024 3:46 PM Reason For Exam: cp Comparison: 10/21/2024 Technique: Upright AP view of the chest demonstrated. Findings: Relatively shallow inspiration. Mild cardiomegaly similar to previous study. There is a loop recorder now projecting over the left-sided thoracic aortic arch. Pulmonary vasculature unremarkable. No new acute pulmonary parenchymal opacity. No pleural effusion. No hyperinflation. Procedure Note Kartik Laguerre MD - 11/19/2024 [place] [address] Examination: Chest x-ray 1 view Exam date/time: 11/19/2024 3:46 PM Reason For Exam: cp Comparison: 10/21/2024 Technique: Upright AP view of the chest demonstrated. Findings: Relatively shallow inspiration. Mild cardiomegaly similar toprevious study. There is a loop recorder now projecting over theleft-sided thoracic aortic arch. Pulmonary vasculature unremarkable. Nonew acute pulmonary parenchymal opacity. No pleural effusion. Nohyperinflation. =====IMPRESSION:===== 1. Mild cardiomegaly without evidence of CHF. Ordered By: KAYLEIGH WALLS Interpreted By: Kartik Laguerre MD, 11/19/2024 4:25 PM Keith Lyman MD GENERAL IMAGING Final Result * (ABNORMAL) PRO-BRAIN NATRIURETIC PEPTIDE (11/19/2024 3:39 PM INS[employer]) PRO-B TYPE NATRIURETIC PEPTIDE 154(H) <125 PG/ML 11/19/2024 4:27 PM INS[employer] CONTAINER [facility] Comment: CUT POINTS ESTABLISHED BY INTERNATIONAL COLL[employer] ON NT PROBNP (ICON) STUDY (2006). AGE INDEPENDENT: <300 PG/ML HAS A 99% NEGATIVE PREDICTIVE VALUE FOR EXCLUDING ACUTE CHF <50 YEARS: >450 PG/ML IS CONSISTENT WITH ACUTE CHF 50-75 YEARS: >900 PG/ML IS CONSISTENT WITH ACUTE CHF >75 YEARS: >1800 PG/ML IS CONSISTENT WITH ACUTE CHF IN PATIENTS WITH RENAL INSUFFICIENCY (GFR <60), >1200 PG/ML YIELDS A DIAGNOSTIC SENSITIVITY AND SPECIFICITY OF 89% AND 72% FOR ACUTE CHF. 11/19/2024 3:39 PM INSPECT[employer] CONTAINER us Kayleigh [facility] LABORAT[facility] Final Resul t [facility] [address] [place] [address], [place] [phone] * (ABNORMAL) COMPREHENSIVE METABOLIC PANEL (11/19/2024 3:39 PM INS[employer]ER) Only the most recent of2 resultswithin the time period is included. Pathologist [facility] GLUCOSE 104(H) 70 - 99 MG/DL 11/19/2024 4:29 PM [employer]ER [facility] BUN 14 7 - 18 MG/DL 11/19/2024 4:29 PM [facility] CREATININE S/P/B 1.33(H) 0.7 - 1.3 MG/DL 11/19/2024 4:29 PM [employer] [facility] SODIUM S/P/B 140 136 - 145 MMOL/L 11/19/2024 4:29 PM [employer]ER [facility] POTASSIUM S/P/B 4.1 3.5 - 5.1 MMOL/L 11/19/2024 4:29 PM [facility] CHLORIDE S/P/B 108 97 - 115 MMOL/L 11/19/2024 4:29 PM [employer]ER [facility] CO2 26.4 21 - 32 MMOL/L 11/19/2024 4:29 PM [facility] CALCIUM S/P/B 9.1 8.5 - 10.1 MG/DL 11/19/2024 4:29 PM [facility] BILIRUBIN TOTAL S/P/B 0.4 0.2 - 1.2 MG/DL 11/19/2024 4:29 PM [facility] Comment: THIS ASSAY IS NOT RECOMMENDED FOR PATIENTS UNDERGOING TREATMENT WITH ELTROMBOPAG DUE TO THE POTENTIAL FOR FALSELY ELEVATED RESULTS. TOTAL PROTEIN S/P/B 7.1 6.4 - 8.2 G/DL 11/19/2024 4:29 PM [facility] ALBUMIN S/P/B 3.8 3.4 - 5.0 G/DL 11/19/2024 4:29 PM [facility] AST 29 15 - 37 U/L 11/19/2024 4:29 PM [facility] ALT 45 16 - 60 U/L 11/19/2024 4:29 PM [facility] ALKALINE PHOSPHATASE S/P/B 64 50 - 136 U/L 11/19/2024 4:29 PM [facility] ANION GAP 5.6 2 - 10 MMOL/L 11/19/2024 4:29 PM [facility] BUN CREATININE RATIO 10.5 6 - 26 11/19/2024 4:29 PM [facility] A/G RATIO 1.2 1.0 - 2.0 RATIO 11/19/2024 4:29 PM [facility] GFR ESTIMATE 58(L) >90 ML/MIN/1.7 3 M2 11/19/2024 4:29 PM [facility] Comment: NOTE: eGFR is not calculated for patients <18 years of age or gender unknown. This is an estimated GFR calculation using the new CKD EPI creatinine equation without race and so does not require a correction factor for race. This estimated GFR should not be used for calculating drug doses. 11/19/2024 3:39 PM INS[employer]ER Keith Lyman MD LABORATORY Final Result [facility] [address] [place] [address], [place] [phone] * (ABNORMAL) CBC W/DIFF AUTOMATED (11/19/2024 3:39 PM INS[employer]ER) Only the most recent of2 resultswithin the time period is included. WBC 5.75 4.5 - 11.0 x10'3/uL 11/19/2024 4:06 PM [facility] RBC 4.51(L) 4.70 - 6.10 x10'6/uL 11/19/2024 4:06 PM [facility] HGB 13.9(L) 14.0 - 18.0 G/DL 11/19/2024 4:06 PM [facility] HCT 41.2(L) 43.0 - 54.0 % 11/19/2024 4:06 PM [facility] MCV 91.4 80.0 - 94.0 FL 11/19/2024 4:06 PM [facility] MCH 30.8 27.0 - 31.0 PG 11/19/2024 4:06 PM [employer] CON[employer]ER [facility] MCHC 33.7 32.0 - 36.0 G/DL 11/19/2024 4:06 PM [facility] RDW 12.7 11.5 - 14.5 % 11/19/2024 4:06 PM [facility] PLT 234 130 - 400 x10'3/uL 11/19/2024 4:06 PM [facility] MPV 10.0 9.3 - 12.2 FL 11/19/2024 4:06 PM [facility] DIFFERENTIAL TYPE AUTOMATED DIFFERENTIAL 11/19/2024 4:06 PM [facility] NEUTROPHILS % 50.2 % 11/19/2024 4:06 PM [facility] LYMPHOCYTES % 38.4 % 11/19/2024 4:06 PM [facility] MONOCYTES % 8.7 % 11/19/2024 4:06 PM [facility] EOSINOPHILS 1.9 % 11/19/2024 4:06 PM [facility] BASOPHILS 0.5 % 11/19/2024 4:06 PM [facility] IMMATURE GRANS % 0.3 % 11/19/19 25 4:06 PM [facility] ABS. NEUTROPHILS 2.88 1.80 - 7.70 x10'3/uL 11/19/2024 4:06 PM [facility] ABS. LYMPHOCYTES 2.21 1.00 - 4.80 x10'3/uL 11/19/2024 4:06 PM [facility] ABS. MONOCYTES 0.50 0.30 - 0.82 x10'3/uL 11/19/2024 4:06 PM [facility] ABS. EOSINOPHILS 0.11 0.04 - 0.54 x10'3/uL 11/19/2024 4:06 PM [facility] ABS. BASOPHILS 0.03 0.01 - 0.08 x10'3/uL 11/19/2024 4:06 PM [facility] ABS. IMMATURE GRANULOCYTES 0.02 0.00 - 0.49 x10'3/uL 11/19/2024 4:06 PM [facility] 11/19/2024 3:39 PM INS[employer] CON[employer]ER Keith Lyman MD LABORATORY Final Result [facility] [facility] [address] [place] [address], [place] [phone] * CT HEAD WO CON (10/21/2024 9:29 AM INSPECTOR PACKER GLASS CONTAINER) Anatomical Region Laterality Modality Head Computed Tomogra phy 10/21/2024 9:50 AM INSPECTOR PACKER GLASS CONTAINER Impressions 10/21/2024 9:53 AM INSPECTOR PACKER GLASS CONTAINER IMPRESSION: 1. No definite CT evidence of acute intracranial abnormality, as above. 2. Small vessel disease and volume loss. Ordered By: ENDY RAMIREZ Interpreted By: Robbie Sandra MD, 10/21/2024 9:50 AM Narrative 10/21/2024 9:53 AM INSPECTOR PACKER GLASS CONTAINER [facility] [address] [place], [place] [address] DATE: 10/21/2024 9:24 AM EXAMINATION: CT of the head CLINICAL HISTORY: Left-sided visual disturbance. COMPARISON: None TECHNIQUE: CT examination of the head without contrast was performed. Axial and multiplanar images obtained. A dose lowering technique was used for this procedure, which may include, but is not limited to, dose reduction technique, automated exposure control, the use of iterative reconstruction, and ALARA (As Low As Reasonably Achievable) / Image Gently techniques. FINDINGS: No acute intracranial hemorrhage, extra-axial collections, intracranial mass effect, or midline shift. Patchy foci of hypodensity suggested in the hemispheric white matter, likely due to small vessel disease. Scattered intracranial vascular calcifications. No definite CT evidence of acute territorial infarction, though MRI would be more sensitive. Mild volume loss with enlargement of the ventricles and extra-axial/subarachnoid spaces. Calvarium unremarkable. Mastoid air cells clear. Mild mucosal thickening in the paranasal sinuses. Visualized orbits unremarkable. Procedure Note Robbie Sandra MD - 10/21/2024 [facility] [address] [place], [place] [address] DATE: 10/21/2024 9:24 AM EXAMINATION: CT of the head CLINICAL HISTORY: Left-sided visual disturbance. COMPARISON: None TECHNIQUE: CT examination of the head without contrast was performed.Axial and multiplanar images obtained. A dose lowering technique was used for this procedure, which may include,but is not limited to, dose reduction technique, automated exposurecontrol, the use of iterative reconstruction, and ALARA (As Low AsReasonably Achievable) / Image Gently techniques. FINDINGS: No acute intracranial hemorrhage, extra-axial collections, intracranialmass effect, or midline shift. Patchy foci of hypodensity suggested in thehemispheric white matter, likely due to small vessel disease. Scatteredintracranial vascular calcifications. No definite CT evidence of acuteterritorial infarction, though MRI would be more sensitive. Mild volumeloss with enlargement of the ventricles and extra-axial/subarachnoidspaces. Calvarium unremarkable. Mastoid air cells clear. Mild mucosalthickening in the paranasal sinuses. Visualized orbits unremarkable. IMPRESSION: 1. No definite CT evidence of acute intracranial abnormality, as above. 2. Small vessel disease and volume loss. Ordered By: ENDY RAMIREZ Interpreted By: Robbie Sandra MD, 10/21/2024 9:50 AM [address] [place] CT Final Resul t from Last 3 Months Insurance [facility] Advance Directives * Full Code (Latest Code Status on File) Date Activated Date Inactivated Comments 02/29/2024 6:32 PM 03/01/2024 3:50 PM * Full Code Date Activated Date Inactivated Comments 11/03/2023 11:21 PM 11/07/2023 1:48 PM * Full Code Date Activated Date Inactivated Comments 11/03/2023 10:31 PM 11/03/2023 11:21 PM * Full Code Date Activated Date Inactivated Comments 06/27/2023 7:31 PM 06/29/2023 3:57 PM Care Teams Sales Enablement Manager Relationship Specialty Start Date End Date Jesus Morrow MD [address] [place] [id number] PCP - General FAMILY PRACTICE 06/27/23
--- OUTSIDE RECORDS SUMMARY | 2024-12-26 13:34 | XMS_ITS | Encounter Summary ---
Author Organization [facility] Healthcare Address [address] [place] [address] Care Team Providers Care Decatizer Name Role Phone Benjamin Kurt VASQUES Primary Care Provider [phone] Santiago Sena MD Unavailable + [phone] Omari Matthews MD Unavailable [phone] Bessie Blanco MD Unavailable [phone] Odalsy Giron NP Unavailable [phone] Mike Cummings MD Unavailable Kerwin Dawkins MD Unavailable [phone] Oli Otero MD Unavailable [phone] Jesus Morrow MD Primary Care Provider [phone] Encounter Details Date Type Department Care Team (Late st Contact Info) Description 02/09/2023 Telephone [facility] Advanced Medicine Radiation Oncology [address] [facility] Advanced [place] [address] Katia Vizcaino MA Social History Tobacco Use Types Packs/Day Years Used Date Smoking Tobacco: Some Days Cigars Started: 1989 Smokeless Tobacco: Never Comments:6-7 cigars daily Alcohol Use Standard Drinks/Week Comments Yes 0 (1 standard drink = 0.6 oz pur e alcohol) binge drinks every other month AUDIT-C Answer Date Recorded Q1: How often do you have a drink containing alc ohol? Monthly or less 12/07/2021 Q2: How many drinks containi ng alcohol do you have on a typical day when you are drinking? 10 or more 12/07/2021 Q3: How often do you have si x or more drinks on one occasion? 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 Not on file Not on f ile Not on file documented as of this encounter Plan of Treatment Not on file documented as of this encounter Visit Diagnoses Not on filedocumented in this encounter Additional Health Concerns Infection Onset Date Last Indicated Resolved Time COVID: Suspected 11/01/2024 11/01/2024 11/01/2024 6:55 PM TROUBLE LOCATOR TEST DESK documented as of this encounter Care Teams Decatizer Relationship Specialty Start Date End Date Kurt Alexander DO PCP - General Internal Medicine 05/03/18 05/07/23 Jesus Morrow MD [address] [place] [address] PCP - General Family Practice 05/08/23 Santiago Sena MD Radiation Oncologist Radiation Oncology 08/17/18 7 3 Omari Matthews MD Referring Physician Urology 08/17/18 Bessie Blanco MD [address] [place] [address] Referring Physician Gastroenterology 12/13/18 Odalys Giron NP [address] [facility] [address] [place] [address] Nurse Practitioner Nurse Practitioner 02/19/21 Mike Cummings MD [address] [facility] [address] [place] [address] Consulting Physician Cardiovascular Disease 04/09/22 Kerwin Dawkins MD [address] [place] [address] Consulting Physician Gastroenterology 07/26/22 Oli Otero MD [address] [place] [address] Radiation Oncologist Radiation Oncology 04/14/23 documented as of this encounter
--- OUTSIDE RECORDS SUMMARY | 2024-12-26 13:34 | XMS_ITS | Encounter Summary ---
Author Organization [facility] Healthcare Address [address] [place] [address] Care Team Providers Care Oil And Gas Principal Name Role Phone Benjamin Kurt VASQUES Primary Care Provider Santiago Sena MD Unavailable + [phone] Omari Matthews MD Unavailable [phone] Bessie Blanco MD Unavailable [phone] Odalys Giron NP Unavailable [phone] Mike Cummings MD Unavailable Kerwin Dawkins MD Unavailable [phone] Oli Otero MD Unavailable [phone] Jesus Morrow MD Primary Care Provider [phone] Encounter Details Date Type Department Care Team (Late st Contact Info) Description 08/25/2022 Telephone [facility] Advanced Medicine Radiation Oncology [address] [facility] Advanced [place] [address] Katia Vizcaino MA Social History Tobacco Use [...] on file 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 Gender Identity Not on file Sexual Orientation [...] COVID: Suspected 11/01/2024 11/01/2024 11/01/2024 6:55 PM PROFILING MACHINE SET UP OPERATOR TOOL documented as of this encounter Care Teams Oil And Gas Principal Relationship Specialty Start Date End Date Kurt Alexander DO PCP - General Internal Medicine 05/03/18 05/07/23 Jesus Morrow MD [address] [place] [address] PCP - General Family Practice 05/08/23 Santiago Sena MD Radiation Oncologist Radiation Oncology 08/17/18 7 3 Omari Matthews MD Referring Physician Urology 08/17/18 Bessie Blanco MD [address] [place] [address] Referring Physician Gastroenterology 12/13/18 Odalys Giron NP [address] [facility] [address] [place] [address] Nurse Practitioner Nurse Practitioner 02/19/21 Mike Cummings MD [address] [facility] [address] [place] [address] Consulting Physician Cardiovascular Disease 04/09/22 Kerwin Dawkins MD [address] [place] [address] Consulting Physician Gastroenterology 07/26/22 Oli Otero MD [address] [place] [address] Radiation Oncologist Radiation Oncology 04/14/23 documented as of this encounter
--- OUTSIDE RECORDS SUMMARY | 2024-12-26 13:34 | XMS_ITS | Encounter Summary ---
Author Organization [facility] Healthcare Address [address] [place] [address] Care Team Providers Care Big Data Platform Architect Name Role Phone Benjamin Kurt VASQUES Primary Care Provider [phone] Santiago Sena MD Unavailable + [phone] Omari Matthews MD Unavailable [phone] Bessie Blanco MD Unavailable [phone] Odalys Giron NP Unavailable [phone] Mike Cummings MD Unavailable Kerwin Dawkins MD Unavailable [phone] Oli Otero MD Unavailable [phone] Jesus Morrow MD Primary Care Provider [phone] Encounter Details Date Type Department Care Team (Late st Contact Info) Description 02/16/2023 Telephone [facility] Advanced Medicine Radiation Oncology [address] [facility] Advanced [place] [address] Katia Vizcaino MA Social History Tobacco Use [...] on file 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 Gender Identity Not on file Sexual Orientation [...] COVID: Suspected 11/01/2024 11/01/2024 11/01/2024 6:55 PM FEED MILL TENDER documented as of this encounter Care Teams Big Data Platform Architect Relationship Specialty Start Date End Date Kurt Alexander DO PCP - General Internal Medicine 05/03/18 05/07/23 Jesus Morrow MD [address] [place] [address] PCP - General Family Practice 05/08/23 Santiago Sena MD Radiation Oncologist Radiation Oncology 08/17/18 7 3 Omari Matthews MD Referring Physician Urology 08/17/18 Bessie Blanco MD [address] [place] [address] Referring Physician Gastroenterology 12/13/18 Odalys Giron NP [address] [facility] [address] [place] [address] Nurse Practitioner Nurse Practitioner 02/19/21 Mike Cummings MD [address] [facility] [address] [place] [address] Consulting Physician Cardiovascular Disease 04/09/22 Kerwin Dawkins MD [address] [place] [address] Consulting Physician Gastroenterology 07/26/22 Oli Otero MD [address] [place] [address] Radiation Oncologist Radiation Oncology 04/14/23 documented as of this encounter
--- OUTSIDE RECORDS SUMMARY | 2024-12-26 13:34 | XMS_ITS | Encounter Summary ---
Author Organization [facility] Healthcare Address [address] [place] [address] Care Team Providers Care Vat Cleaner Name Role Phone Benjamin Kurt VASQUES Primary Care Provider [phone] Santiago Sena MD Unavailable + [phone] Omari Matthews MD Unavailable [phone] Bessie Blanco MD Unavailable [phone] Odalys Giron NP Unavailable [phone] Mike Cummings MD Unavailable Kerwin Dawkins MD Unavailable [phone] Oli Otero MD Unavailable [phone] Jesus Morrow MD Primary Care Provider [phone] Encounter Details Date Type Department Care Team (Late st Contact Info) Description 02/13/2023 Telephone [facility] Advanced Medicine Radiation Oncology [address] [facility] Advanced [place] [address] Katia Vizcaino MA Social History Tobacco Use [...] on file 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 Gender Identity Not on file Sexual [...] COVID: Suspected 11/01/2024 11/01/2024 11/01/2024 6:55 PM PLATING EQUIPMENT TENDER documented as of this encounter Care Teams Vat Cleaner Relationship Specialty Start Date End Date Kurt Alexander DO PCP - General Internal Medicine 05/03/18 05/07/23 Jesus Morrow MD [address] [place] [address] PCP - General Family Practice 05/08/23 Santiago Sena MD Radiation Oncologist Radiation Oncology 08/17/18 7 3 Omari Matthews MD Referring Physician Urology 08/17/18 Bessie Blanco MD [address] [place] [address] Referring Physician Gastroenterology 12/13/18 Odalys Giron NP [address] [facility] [address] [place] [address] Nurse Practitioner Nurse Practitioner 02/19/21 Mike Cummings MD [address] [facility] [address] [place] [address] Consulting Physician Cardiovascular Disease 04/09/22 Krewin Dawkins MD [address] [place] [address] Consulting Physician Gastroenterology 07/26/22 Oli Otero MD [address] [place] [address] Radiation Oncologist Radiation Oncology 04/14/23 documented as of this encounter
--- OUTSIDE RECORDS SUMMARY | 2024-12-26 13:35 | XMS_ITS | Referral Summary ---
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 Name Role Phone Omari Matthews MD Unavailable [phone] Bessie Blanco MD Unavailable [phone] Odalys Giron NP Unavailable Mike Cummings MD Unavailable Kerwin Dawkins MD Unavailable Oli Otero MD Unavailable [phone] Valerio Morrow MD Primary Care Provider [phone] Encounters Date Type Department Care Team Description 11/27/2024 Orders Only [facility] Department of Otolaryngology Head-Neck Division [address] [place] [phone] Sherri Renee MD Multiple thyroid nodules (Primary Dx) 11/27/2024 1:20 PM WRINGER AND SETTER Office Visit [facility] Department of Otolaryngology Head-Neck Division [address] [place] [phone] Sherri Renee MD Multiple thyroid nodules (Primary Dx) 11/27/2024 11:01 AM WRINGER AND SETTER - 11/27/2024 11:59 PM WRINGER AND SETTER Hospital Encounter [facility] [address] [place] [address] [phone] Thyroid nodule Discharge Disposition: Discharge to home or self care 11/23/2024 8:24 PM WRINGER AND SETTER - 11/25/2024 12:28 PM WRINGER AND SETTER Hospital Encounter [address] [address] Melonie Concepcion MD Ali, Md Shahin, MD Small bowel obstruction (HCC) (Primary Dx); SBO (small bowel obstruction) (HCC) Discharge Disposition: Discharge to home or self care 11/18/2024 8:00 AM WRINGER AND SETTER Ancillary Procedure [facility] [address] [place] [address] [phone] 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); Encounter for loop recorder check 11/15/2024 10:15 AM WRINGER AND SETTER Office Visit [address] [phone] Silvestre Botello MD Coronary artery disease involving paimiut coronary artery of paimiut heart without angina pectoris (Primary Dx); Hypercholesteremia; Primary hypertension; Retinal artery occlusion; PFO (patent foramen ovale) 11/06/2024 9:27 AM WRINGER AND SETTER - 11/06/2024 11:59 PM WRINGER AND SETTER Hospital Encounter [facility] Cardiac Police Officer Crime Prevention [address] [place] [phone] Violette Alfonso RN Retinal artery occlusion; 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) Discharge Disposition: Discharge to home or self care 11/04/[address] [facility] Cardiac Police Officer Crime Prevention [address] [place] [phone] Silvestre Botello MD 11/01/2024 3:13 PM WRINGER AND SETTER - 11/01/2024 8:17 PM WRINGER AND SETTER Emergency [address] [address] Siva Jhaveri MD Lightheadedness (Primary Dx); Nonintractable headache, unspecified chronicity pattern, unspecified headache type Discharge Disposition: Discharge to home or self care 11/01/2024 Orders Only [facility] [address] [place] [phone] Silvestre Botello MD 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) (Primary Dx); Encounter for loop recorder check 10/30/2024 Telephone [facility] [address] [place] [address] Suleman Moreno NP 10/30/2024 Telephone [facility] [address] [address] 11th [place] [address] [place] [address] Nataliia Foley, 10/28/2024 Telephone [facility] [address] [place] [phone] Suleman Moreno NP Scheduling Testing/Treatment (ZHENG) 10/28/2024 8:30 AM WRINGER AND SETTER - 10/28/2024 9:30 AM WRINGER AND SETTER Surgery [facility] Cardiac Police Officer Crime Prevention [address] [place] [phone] Silvestre Botello MD LEFT HEART CATHETERIZATION WITH CORONARY ANGIOGRAPHY AND WITH OR WITHOUT LEFT VENTRICULOGRAM [id number] 10/28/2024 6:30 AM WRINGER AND SETTER - 10/28/2024 5:05 PM WRINGER AND SETTER Hospital Encounter [facility] Cardiac Police Officer Crime Prevention [address] [place] [phone] Silvestre Botello MD TY (dyspnea on exertion); Chest pain, unspecified type; PVC's (premature ventricular contractions); Hypercholesteremia; Primary hypertension; HOLLIS (obstructive sleep apnea); Pure hypertriglyceridemia Discharge Disposition: Discharge to home or self care 10/23/2024 Telephone [facility] [address] [place] [address] [phone] Suleman Moreno NP Test Results (Called to discuss results of coronary CTA without answer) 10/16/2024 1:02 PM WRINGER AND SETTER - 10/16/2024 11:59 PM WRINGER AND SETTER Hospital Encounter [facility] CT [address] [place] [phone] Rn, Mhb Rad TY (dyspnea on exertion); Chest pain, unspecified type Discharge Disposition: Discharge to home or self care 10/15/2024 2:40 PM WRINGER AND SETTER Office Visit [facility] Radiation Oncology [address] [facility] [place] [address] Odalys Giron NP Adenocarcinoma of prostate (CMS/HCC) (HCC) (Primary Dx); Encounter for follow-up surveillance of prostate cancer 10/12/2024 8:50 AM WRINGER AND SETTER Lab [facility] [address] [place] [phone] Adenocarcinoma of prostate (CMS/HCC) (HCC) 10/10/2024 Orders Only [facility] [address] [place] [phone] Suleman Moreno NP TY (dyspnea on exertion) (Primary Dx); Chest pain, unspecified type 10/03/2024 1:30 PM WRINGER AND SETTER Office Visit [facility] G[facility] [address] [facility] [address] 12[address] [place] [address] [place] [address] Kerwin Dawkins MD Small bowel obstruction (HCC) (Primary Dx); Prostate cancer (HCC); Abdominal pain from Last 3 Months Allergies Active Allergy Reactions Criticality Noted Date Comments Lidocaine Flushing (skin) Low 11/15/2018 Wasp Venom Swelling Medium 12/21/2020 Medications LORazepam (ATIVAN) 1 mg tablet take 1 tablet by oral route every 8 hours as needed 0 0 08/15/20 14 Active multivitamin tabletIndicati ons:Vitamin Deficiency Prevention Take 1 tablet by mouth daily Active pantoprazole DR (PROTONIX) 40 mg EC tablet Take 1 tablet (40 mg total) by mouth daily 08/21/20 19 Active fenofibrate (TRICOR) 54 mg tablet Take 1 tablet (54 mg total) by mouth daily 12/14/19 23 Active atorvastatin (LIPITOR) 20 mg tablet Take 2 tablets (40 mg total) by mouth daily 03/14/20 23 Active metoprolol XL (TOPROL-XL) 25 mg extended release tablet Take 1 tablet (25 mg total) by mouth daily 90 tablet 1 09/09/20 24 Active Additional Information Patient not taking.Reported on 11/27/2024 aspirin 81 mg enteric coated tablet Take 1 tablet (81 mg total) by mouth daily Active acetaminophen (TYLENOL) 500 mg tablet Take 2 tablets (1,000 mg total) by mouth every 6 (six) hours as needed for headaches 30 tablet 11/01/19 25 Active timolol (TIMOPTIC) 0.5 % ophthalmic solution Administer 1 drop into affected eye(s) 2 (two) times a day 10/22/19 25 Active timolol (TIMOPTIC) 0.5 % ophthalmic solution Administer 1 drop into both eyes 2 (two) times a day 025 Discontinued Active Problems Problem Noted Date Diagnosed Date Embolism and thrombosis of other arteries 2024 Retinal artery occlusion 11/06/2024 Coronary artery stenosis 10/28/2024 Coronary stenosis 10/28/2024 TY (dyspnea on exertion) 10/24/2024 Anxiety 10/21/2024 CVA (cerebral vascular accident) 10/21/2024 Vision loss of left eye 10/21/2024 GERD (gastroesophageal reflux disease) SBO (small bowel obstruction) 02/29/2024 Small bowel obstruction 06/27/2023 Psychophysiological insomnia 02/27/2023 BMI 32.0-32.9,adult 02/27/2023 Primary hypertension 01/20/2023 Pure hypertriglyceridemia 01/20/2023 HOLLIS (obstructive sleep apnea) 04/12/2022 Sinus bradycardia 04/07/2022 Abdominal pain 11/04/2021 Overview (11/04/2021): Added automatically from request for surgery [id number] Ileitis 11/04/2021 Overview (11/04/2021): Added automatically from request for surgery [id number] Assessment & Plan (11/04/2021 8:24 PM WRINGER AND SETTER): 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 Ileitis improved after about 4 months, with resolution of symptoms. He return today reporting abdominal bloating, with LUQ pain, and postpandrial diarrhea with no significant improvement with use of bentyl. Plan -Increase bentyl to 20 mg pre-meal and at bedtime. -Repeat CT adomen and pelvis w/ contrast. -Repeat colonoscopy after CTAP. Esophagitis 11/04/2021 Overview (11/04/2021): Added automatically from request for surgery [id number] Assessment & Plan (11/04/2021 8:20 PM WRINGER AND SETTER): EGD done in 2019 also showed a salmon-colored mucosa island just proximal to the GEJ. 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 He has GERD and currently on protonix 40 mg every day. Plan: Repeat EGD Esophagitis 11/04/2021 Overview (11/01/2024): Added automatically from request for surgery [id number] Last Assessment & Plan: EGD done in 2019 also showed a salmon-colored mucosa island just proximal to the GEJ. 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 He has GERD and currently on protonix 40 mg every day. Plan: Repeat EGD Encounter for follow-up surveillance of prostate cancer 02/19/2021 Palpitations 01/19/2021 Assessment & Plan (01/19/2021 1:19 PM CDT): Based on his recent Holter, the strips [...] may be beneficial. Multiple thyroid nodules 05/07/2019 Sore throat 10/30/2018 Melena 10/30/2018 Overview (10/30/2018): Added automatically from request for surgery [id number] Gastrointestinal hemorrhage associated with olivia ritis 10/30/2018 Overview (10/30/2018): Added automatically from request for surgery [id number] Adenocarcinoma of prostate (CMS/HCC) 08/17/2018 Cancer Staging:Clinical: cT1c, PSA: 8.8, Grade Group: 3 - Signed by Eric Degroot MD on 11/28/2018 Elevated PSA 06/13/2018 Overview (06/13/2018): Added automatically from request for surgery [id number] Hypercholesteremia 05/28/2017 Assessment & Plan (02/08/2022 12:14 PM CDT): Well controlled, continue simvastatin Assessment & Plan (01/24/2020 2:21 PM CDT): He is on low-dose simvastatin. He says he has had no lipids checked since he last saw me. Will obtain fasting lipids one Covid-19 restrictions allow. In the meantime, will give him a 90 day prescription for simvastatin. Assessment & Plan (07/16/2018 9:50 AM CDT): On chronic lipid lowering therapy with good control. No changes made. Assessment & Plan (05/28/2017 5:07 PM CDT): Given the finding of some mild coronary plaquing, dyslipidemia should be treated. He is in agreement with this. Will begin low-dose simvastatin. Chest pain 05/22/2017 Assessment & Plan (05/28/2017 5:06 PM CDT): Noncardiac. Recent cardiac catheterization was very reassuring. PVC's (premature ventricular contractions) 08/15 Overview (01/12/2017): Premature beats Assessment & Plan (02/08/2022 12:14 PM CDT): Patient has symptomatic PVCs but also certainly [...] to 50 XL daily - check echo Assessment & Plan (01/19/2021 1:20 PM CDT): He does have PVCs and did feel the one that he experience while I was examining him. These are improved with metoprolol. I reassured him that these are benign and he can safely ignore them from my perspective. I reminded him that PVCs do not lead to a heart attack. Assessment & Plan (01/24/2020 2:20 PM CDT): PVCs are extremely symptomatic. Previously, palpitations have corresponded with his PVCs, but in general PVCs have been rare on monitoring. I am reluctant to increase metoprolol given his heart rate. Will obtain a 48 hour Holter and stress test (holding metoprolol the day of testing) to verify that his ectopy remains benign and not ischemically mediated. As his symptoms have been going on for many years, this can wait until after the Covid-19 restrictions are lifted. In the meantime, will give him a 90 day prescription for metoprolol. Assessment & Plan (07/16/2018 9:50 AM CDT): These are benign but very symptomatic. His heart rate runs a little slow on 12- ,1/2 mg of metoprolol. If he feels the occasional need to take more than 12.5 mg, I would recommend that not engage in any strenuous exertion of be exposed to he. I also recommend that he drink fluids before and while he exerts himself in warm weather to minimize dehydration which is apparently a trigger for his PVCs. He is cleared for his upcoming prostate biopsy. Assessment & Plan (05/28/2017 5:06 PM CDT): Longstanding and benign. Continue metoprolol. Paving stone degeneration of left retina 014 Vitreous degeneration 11/26/2013 Hernia of anterior abdominal wall 04/25/2013 Panic attacks Resolved Problems Problem Noted Date Diagnosed Date Resolved Date Encounter for monitoring flecainide therapy 06/06/2022 Social History Tobacco Use Types Packs/Day Years Used Date Smoking Tobacco: Some Days Cigars Started: 1989 Smokeless Tobacco: Never Tobacco Cessation:Ready to Q uit: Not Asked; Counseling Given: Not Answered Comments:6-7 cigars daily Alcohol Use Standard Drinks/Week Comments Yes 0 (1 standard drink = 0.6 oz pur e alcohol) binge drinks every other month [facility] Utilities Answer Date Recorded In the past 12 months has th e electric, gas, oil, or water company threatened to shut off services in your home? No 11/25/2024 Social Connection and Isolat ion Panel [NHANES] Answer Date Recorded In a typical week, how many times do you talk on the phone with family, friends, or neighbors? More than three times a week 11/25/2024 How often do you get togethe r with friends or relatives? More than three times a week 11/25/2024 How often do you attend chur ch or rastafarian services? Never 11/25/2024 Do you belong to any clubs o r organizations such as confucianist groups, unions, fraternal or athletic groups, or school groups? No 11/25/2024 How often do you attend meet ings of the clubs or organizations you belong to? Never 11/25/2024 Are you , , di vorced, , never , or living with a partner? 11/25/2024 AUDIT-C Answer Date Recorded Q1: How often do you have a drink containing alc ohol? Monthly or less 12/07/2021 Q2: How many drinks containi ng alcohol do you have on a typical day when you are drinking? 10 or more 12/07/2021 Q3: How often do you have si x or more drinks on one occasion? Less than monthly 12/07/2021 Overall Financial Resource Strain (CARDIA) Answe r Date Recorded How hard is it for you to pa y for the very basics like food, housing, medical care, and heating? Not hard at all 11/25/2024 Hunger Vital Sign Answer Date Recorded Within the past 12 months, y ou worried that your food would run out before you got the money to buy more. Never true 11/25/19 25 Within the past 12 months, t he food you bought just didn't last and you didn't have money to get more. Never true 11/25/2024 PRAPARE - Transportation Answer Date Re corded In the past 12 months, has l ack of transportation kept you from medical appointments or from getting medications? No 11/09 In the past 12 months, has l ack of transportation kept you from meetings, work, or from getting things needed for daily living? No 11/25/2024 Housing Stability Vital Sign Answer Delfino e Recorded In the last 12 months, was t here a time when you were not able to pay the mortgage or rent on time? No 11/25/2024 In the past 12 months, how m any times have you moved where you were living? 0 11/25/2024 At any time in the past 12 m [facility], were you homeless or living in a longterm (including now)? No 11/25/2024 Personal Safety Answer Date Recorded Have you ever been in or are you currently in a harmful physical or emotional relationship or is someone making you feel afraid or unsafe? 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 Not on file Not on f ile Not on file Last Filed Vital Signs Vital Sign Reading Time Taken Comments Blood Pressure 122/66 11/25/2024 11:52 AM WRINGER AND SETTER Pulse 57 11/25/2024 11:52 AM WRINGER AND SETTER Temperature 36.9 C (98.4 F) 11/25/2024 11:52 AM WRINGER AND SETTER Respiratory Rate 18 11/25/2024 11:5 2 AM WRINGER AND SETTER Oxygen Saturation 95% 11/25/2024 11: 52 AM WRINGER AND SETTER Inhaled Oxygen Concentration - - Weight 102.6 kg (226 lb 3.2 oz) 11/27/2024 1:07 PM WRINGER AND SETTER Height 180.3 cm (5' 11 ) 11/23/2024 11: 34 PM WRINGER AND SETTER Body Mass Index 31.55 11/23/2024 11:34 PM WRINGER AND SETTER Plan of Treatment Not on file Procedures Procedure Name Priority Date/Time Associated Diagnosis Comments US SOFT TISSUE HEAD NECK Schedule Routine, Read Routine (OP Routine) 11/27/2024 11:48 AM WRINGER AND SETTER Thyroid nodule EGFR Routine 11/25/2024 3:58 AM WRINGER AND SETTER DIFFERENTIAL AUTO Routine 11/25/2024 3:58 AM WRINGER AND SETTER MAGNESIUM Routine 11/25/2024 3:58 AM WRINGER AND SETTER COMPREHENSIVE METABOLIC PANEL Routine 11/25/2024 3:58 AM WRINGER AND SETTER CBC WITH AUTO DIFFERENTIAL Routine 11/25/2024 3:58 AM WRINGER AND SETTER XR KUB IP Routine 11/24/2024 7:35 AM WRINGER AND SETTER EGFR Routine 11/24/2024 4:45 AM WRINGER AND SETTER DIFFERENTIAL AUTO Routine 11/24/2024 4:45 AM WRINGER AND SETTER MAGNESIUM Routine 11/24/2024 4:45 AM WRINGER AND SETTER COMPREHENSIVE METABOLIC PANEL Routine 11/24/2024 4:45 AM WRINGER AND SETTER CBC WITH AUTO DIFFERENTIAL Routine 11/24/2024 4:45 AM WRINGER AND SETTER INFLUENZA A/B, RSV, AND COVID-19 PCR STAT 11/23/2024 10:19 PM WRINGER AND SETTER TROPONIN T HIGH-SENSITIVITY 2-HOUR Timed 11/23/2024 5:[address] ABDOMEN PELVIS W CONTRAST ED 11/23/2024 4:42 PM WRINGER AND SETTER ECG 12-LEAD STAT 11/23/2024 3:33 PM WRINGER AND SETTER URINALYSIS AND REFLEX TO MICROSCOPIC AND CULTURE STAT 11/23/2024 3:32 PM WRINGER AND SETTER EGFR STAT 11/23/2024 3:31 PM WRINGER AND SETTER DIFFERENTIAL AUTO STAT 11/23/2024 3:31 PM WRINGER AND SETTER TROPONIN T HIGH-SENSITIVITY SERIES (BASELINE, 2HR, 4HR, 6HR) STAT 11/23/2024 3:31 PM WRINGER AND SETTER LIPASE STAT 11/23/2024 3:31 PM WRINGER AND SETTER COMPREHENSIVE METABOLIC PANEL STAT 11/23/2024 3:31 PM WRINGER AND SETTER CBC WITH AUTO DIFFERENTIAL STAT 11/23/2024 3:31 PM WRINGER AND SETTER TRANSESOPHAGEAL ECHO (ZHENG) W DOPPLER/CF WO CONTRAST Routine 11/06/2024 11:50 AM WRINGER AND SETTER Retinal artery occlusion 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) EGFR STAT 11/06/2024 9:50 AM WRINGER AND SETTER DIFFERENTIAL AUTO STAT 11/06/2024 9:50 AM WRINGER AND SETTER PROTIME-INR STAT 11/06/2024 9:50 AM WRINGER AND SETTER APTT STAT 11/06/2024 9:50 AM WRINGER AND SETTER CBC WITH AUTO DIFFERENTIAL STAT 11/06/2024 9:50 AM WRINGER AND SETTER BASIC METABOLIC PANEL STAT 11/06/2024 9:50 [address] HEAD WO CONTRAST ED 11/01/2024 6:36 PM WRINGER AND SETTER DRUGS OF ABUSE SCREEN, URINE WITHOUT CONFIRMATION STAT 11/01/2024 6:13 PM WRINGER AND SETTER URINALYSIS AND REFLEX TO MICROSCOPIC AND CULTURE STAT 11/01/2024 6:13 PM WRINGER AND SETTER INFLUENZA A/B, RSV, AND COVID-19 PCR Routine 11/01/2024 6:12 PM WRINGER AND SETTER TROPONIN T HIGH-SENSITIVITY 2-HOUR Timed 11/01/2024 4:38 PM WRINGER AND SETTER MAGNESIUM STAT 11/01/2024 2:21 PM WRINGER AND SETTER PHOSPHORUS STAT 11/01/2024 2:21 PM WRINGER AND SETTER ETHANOL STAT 11/01/2024 2:21 PM WRINGER AND SETTER EGFR STAT 11/01/2024 2:21 PM WRINGER AND SETTER DIFFERENTIAL AUTO STAT 11/01/2024 2:21 PM WRINGER AND SETTER TROPONIN T HIGH-SENSITIVITY SERIES (BASELINE, 2HR, 4HR, 6HR) STAT 11/01/2024 2:21 PM WRINGER AND SETTER COMPREHENSIVE METABOLIC PANEL STAT 11/01/2024 2:21 PM WRINGER AND SETTER CBC WITH AUTO DIFFERENTIAL STAT 11/01/2024 2:21 PM WRINGER AND SETTER XR CHEST 1 VIEW ED 11/01/2024 2:13 PM WRINGER AND SETTER ECG 12-LEAD STAT 11/01/2024 2:05 PM WRINGER AND SETTER LEFT HEART CATHETERIZATION WITH CORONARY ANGIOGRAPHY AND WITH AND WITHOUT LEFT VENTRICULOGRAM Routine 10/28/2024 9:34 AM WRINGER AND SETTER TY (dyspnea on exertion) Chest pain, unspecified type PVC's (premature ventricular contractions) Hypercholesteremia Primary hypertension HOLLIS (obstructive sleep apnea) Pure hypertriglyceridemia B ABO / RH CONFIRMATION TESTING STAT 10/28/2024 7:04 AM WRINGER AND SETTER ECG 12-LEAD Routine 10/28/2024 6:56 AM WRINGER AND SETTER EGFR STAT 10/28/2024 6:50 AM WRINGER AND SETTER DIFFERENTIAL AUTO STAT 10/28/2024 6:50 AM WRINGER AND SETTER ANTIBODY SCREEN STAT 10/28/2024 6:50 AM WRINGER AND SETTER ABO/RH STAT 10/28/2024 6:50 AM WRINGER AND SETTER PROTIME-INR STAT 10/28/2024 6:50 AM WRINGER AND SETTER TYPE AND SCREEN STAT 10/28/2024 6:50 AM WRINGER AND SETTER APTT STAT 10/28/2024 6:50 AM WRINGER AND SETTER CBC WITH AUTO DIFFERENTIAL STAT 10/28/2024 6:50 AM WRINGER AND SETTER BASIC METABOLIC PANEL STAT 10/28/2024 6:50 AM WRINGER AND SETTER XR CHEST 1 VIEW Routine 10/28/2024 6:49 AM WRINGER AND SETTER CTA HEART W CALCIUM SCORING Schedule Routine, Read Routine (OP Routine) 10/16/2024 1:52 PM WRINGER AND SETTER TY (dyspnea on exertion) Chest pain, unspecified type PSA DIAGNOSTIC Routine 10/12/2024 8:50 AM WRINGER AND SETTER Adenocarcinoma of prostate (CMS/HCC) (HCC) COLONOSCOPY 12/07/2021 8:21 AM WRINGER AND SETTER from Last 3 Months or Most Recently Relevant to Health Maintenance Results * US Soft Tissue Neck (11/27/2024 11:48 AM WRINGER AND SETTER) Anatomical Region Laterality Modality Head and Neck N/A Ultrasound 11/27/2024 11:4 9 AM WRINGER AND SETTER Impressions 11/27/2024 12:43 PM WRINGER AND SETTER No significant change in size of right upper thyroid nodule for which follow-up sonogram is recommended. ACR TI-RADS recommendations FNA should only be recommended on a maximum of 2 nodules. A recommendation for follow-up should only be provided for a maximum of 4 nodules. TR5 (>=7 points) (risk of malignancy > 20%) >=1 cm: FNA 0.5-0.9 cm: follow-up US every year for 5 years <0.5 cm: no further evaluation TR4 (4-6 points) (risk of malignancy 5-20%) >=1.5 cm: FNA 1-1.4 cm: follow-up US in 1, 2, 3, and 5 years <1.0 cm: no further evaluation TR3 (3 points) (risk of malignancy 2-5%) >=2.5 cm: FNA 1.5-2.4 cm: follow-up US in 1, 3, and 5 years <1.5 cm: no further evaluation TR2 (2 points) and TR1 (0 points) (risk of malignancy < 2%) No FNA or follow-up US Dictated by: Valerio Oliver MD The radiology attending physician has personally reviewed this study, and had reviewed and/or edited this written report and agrees with it. Electronically signed by: Darlene Saunders M.D. Narrative 11/27/2024 12:43 PM WRINGER AND SETTER EXAMINATION: THYROID SONOGRAM HISTORY: Multinodular goiter. Prior Biopsy: No Patient Risk Factors: None Prior Ultrasound: Thyroid sonogram 05/10/2023 FINDINGS: The thyroid is enlarged in size. Size right lobe: 6.3 cm craniocaudal, 2.3 cm transverse, 2.6 cm AP. Size left lobe: 4.6 cm craniocaudal, 2.1 cm transverse, 1.9 cm AP. Size isthmus: 0.7 cm AP. Estimated total number of nodules >/= 1 cm: 1 Number of spongiform nodules >/= 2 cm not described below (TR1): 0 Number of mixed cystic and solid nodules >/= 1.5 cm not described below (TR2): 0 Nodule 1: Location: Right upper . Size: 1.0 cm craniocaudal x 0.8 cm transverse x 0.7 cm AP (previously 0.9 cm craniocaudal x 0.6 cm transverse x 0.6 cm AP) Maximum Size: 1.0 cm Composition: Mixed cystic and solid (1) Echogenicity: Isoechoic (1) Shape: Not taller than wide (0) Margins: Smooth (0) Echogenic foci: Punctate echogenic foci (3) ACR TI-RADS total points: 5 ACR TI-RADS risk category: TR4 (4-6 points) Follow-up details: Prior biopsy: No Significant change in size (>/= 20% in two dimensions and minimal increase of 2 mm): No Change in features: No Change in ACR TI-RADS risk category: No ACR TI-RADS recommendation: Follow-up US in 1 year The previously noted smaller nodule within the right mid thyroid corresponds with a subcentimeter mixed solid and cystic, isoechoic nodule (TR 2) for which no follow-up is recommended. Procedure Note Darlene Saunders MD - 11/27/2024 EXAMINATION: THYROID SONOGRAM HISTORY: Multinodular goiter. Prior Biopsy: No Patient Risk Factors: None Prior Ultrasound: Thyroid sonogram 05/10/2023 FINDINGS: The thyroid is enlarged in size. Size right lobe: 6.3 cm craniocaudal, 2.3 cm transverse, 2.6 cm AP. Size left lobe: 4.6 cm craniocaudal, 2.1 cm transverse, 1.9 cm AP. Size isthmus: 0.7 cm AP. Estimated total number of nodules >/= 1 cm: 1 Number of spongiform nodules >/= 2 cm not described below (TR1): 0 Number of mixed cystic and solid nodules >/= 1.5 cm not described below (TR2): 0 Nodule 1: Location: Right upper . Size: 1.0 cm craniocaudal x 0.8 cm transverse x 0.7 cm AP (previously 0.9 cm craniocaudal x 0.6 cm transverse x 0.6 cm AP) Maximum Size: 1.0 cm Composition: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 Urine 11/23/2024 3:32 PM WRINGER AND SETTER 11/23/2024 3:34 PM WRINGER AND SETTER us Melonie Concepcion MD LAB MICROBIOLOGY - GENERAL O RDERABLES Final Result Performing Organization Address [facility] Co de Phone Number [address] [place] [address] * Troponin T high-sensitivity series (baseline, 2hr, 4hr, 6hr) (11/23/2024 3:31 PM WRINGER AND SETTER) Trop T hs 7 <=22 ng/L Comment: Interpretive Data For further hscTnT resources including the diagnostic algorithm and an aid in interpretation, copy and paste this link: https://nrl.testcatalog.org/show/hsTrop Current Interpretive Data last revised 2020. Blood 11/23/2024 3:31 PM WRINGER AND SETTER 11/23/2024 3:34 PM WRINGER AND SETTER us Melonie Concepcion MD LAB BLOOD ORDERABLES Final R esult Performing Organization Address [facility] Co de Phone Number [address] [place] [address] * eGFR (11/23/2024 3:31 PM WRINGER AND SETTER) Pathologist [facility] eGFR 73 >=60 mL/min/1. 73 m2 Comment: Interpretive Data Reference Interval Normal >/= 90 mL/min/1.73m2 Mildly decreased* 60 - 89 mL/min/1.73m2 Mildly to moderately decreased 45 - 59 mL/min/1.73m2 Moderately to severely decreased 30 - 44 mL/min/1.73m2 Severely decreased 15 - 29 mL/min/1.73m2 Kidney Failure < 15 mL/min/1.73m2 *Relative to young adult level Estimated glomerular filtration rate is determined by the 2020 CKD-EPI equation recommended by the National Kidney Foundation (A Unifying Approach to GFR Estimation: Recommendations of the NKF-ASK Task Force on Reassessing the Inclusion of Race in Diagnosing Kidney Disease, JASN 2020). The CKD-EPI equation should not be used for patients with unstable renal function and has not been validated in children and those over 70. Current interpretive data was last reviewed 2021. Blood 11/23/2024 3:31 PM WRINGER AND SETTER 11/23/2024 3:34 PM WRINGER AND SETTER us Melonie Concepcion MD LAB BLOOD ORDERABLES Final R esult [facility] [address] [facility] [place] [address] * (ABNORMAL) Differential, auto (11/23/2024 3:31 PM WRINGER AND SETTER) Pathologist [facility] Neutrophil abs 7.3(H) 1.5 - 6.5 K/cumm Imm gran abs 0.0 0.0 - 0.1 K/cumm [facility] Lymphocyte abs 1.4 0.8 - 3.3 K/cumm [facility] Monocyte abs 0.5 0.2 - 0.8 K/cumm [facility] Eosinophil abs 0.1 0.0 - 0.5 K/cumm [facility] Basophil abs 0.0 0.0 - 0.1 K/cumm [facility] Neutrophil pct 78.3 % [facility] Comment: Interpretive Data Percent cell count reference ranges are not reported, since discordance with absolute values may lead to misinterpretation of CBC data. Current Interpretive Data was last revised on 2018. Imm gran pct 0.4 % [facility] Comment: Interpretive Data Percent cell count reference ranges are not reported, since discordance with absolute values may lead to misinterpretation of CBC data. Current Interpretive Data was last revised on 2018. Lymphocyte pct 14.8 % [facility] Comment: Interpretive Data Percent cell count reference ranges are not reported, since discordance with absolute values may lead to misinterpretation of CBC data. Current Interpretive Data was last revised on 2018. Monocyte pct 5.0 % [facility] Comment: Interpretive Data Percent cell count reference ranges are not reported, since discordance with absolute values may lead to misinterpretation of CBC data. Current Interpretive Data was last revised on 2018. Eosinophil pct 1.2 % [facility] Comment: Interpretive Data Percent cell count reference ranges are not reported, since discordance with absolute values may lead to misinterpretation of CBC data. Current Interpretive Data was last revised on 2018. Basophil pct 0.3 % [facility] Comment: Interpretive Data Percent cell count reference ranges are not reported, since discordance with absolute values may lead to misinterpretation of CBC data. Current Interpretive Data was last revised on 2018. Blood 11/23/2024 3:31 PM WRINGER AND SETTER 11/23/2024 3:34 PM WRINGER AND SETTER us Melonie Concepcion MD LAB BLOOD ORDERABLES Final R esult [facility] [address] [facility] Department [place] [address] * CBC with auto differential (11/23/2024 3:31 PM WRINGER AND SETTER) WBC 9.3 3.8 - 9.9 K/cumm Hgb 14.9 13.0 - 17.5 g/dL [facility] Hct 44.7 38.9 - 50.3 % [facility] Plt 240 150 - 400 K/cumm [facility] MPV 9.6 9.1 - 12.3 fL [facility] RBC 4.93 4.30 - 5.80 M/cumm [facility] MCV 90.7 81.3 - 96.4 fL [facility] MCH 30.2 27.1 - 33.3 pg [facility] MCHC 33.3 32.3 - 35.7 g/dL [facility] RDW CV 12.8 11.1 - 14.9 % [facility] RDW SD 42.0 35.7 - 48.1 fL [facility] NRBC abs 0.00 0.00 - 0.01 K/cumm [facility] Blood Venous blood specimen / Unknown 11/23/2024 3:31 PM WRINGER AND SETTER 11/23/2024 3:34 PM WRINGER AND SETTER us Melonie Concepcion MD LAB BLOOD ORDERABLES Final R esult Performing Organization Address City/[facility]/ZIP Co de Phone Number [address] [place] [address] * Lipase (11/23/2024 3:31 PM WRINGER AND SETTER) [facility] Lipase 20 10 - 99 Units/L Blood Venous blood specimen / Unknown 11/23/2024 3:31 PM WRINGER AND SETTER 11/23/2024 3:34 PM WRINGER AND SETTER Melonie Concepcion MD LAB BLOOD ORDERABLES Final R esrust Performing Organization Address City/[facility] Co de Phone Number [address] [place] [address] * Comprehensive metabolic panel (11/23/2024 3:31 PM WRINGER AND SETTER) [facility] Sodium 136 135 - 145 mmol/L Potassium, pl 4.3 3.3 - 4.9 mmol/L [facility] Chloride 101 97 - 110 mmol/L [facility] CO2 25 22 - 32 mmol/L [facility] Anion gap 10 2 - 15 mmol/L [facility] BUN 10 6 - 25 mg/dL [facility] Creatinine 1.09 0.80 - 1.30 mg/dL [facility] Glucose 99 70 - 199 mg/dL [facility] Comment: Interpretive Data Fasting glucose >/= 126 mg/dl is diagnostic for diabetes. Fasting is defined as no caloric intake for at least 8 hours. Fasting glucose between 100 mg/dl to 125 mg/dl is diagnostic of prediabetes. In a patient with classic symptoms of hyperglycemia or hyperglycemic crisis, a random glucose >/= 200 mg/dl is diagnostic for diabetes. In the absence of unequivocal hyperglycemia, results should be confirmed by repeat testing. The classification and Diagnosis of Diabetes Diabetes Care 202; 46: S19-S40. Current interpretive data was last revised 2022. Calcium 10.1 8.5 - 10.3 mg/dL [facility] Bilirubin, total 0.6 0.1 - 1.2 mg/dL [facility] Protein, pl 7.5 6.5 - 8.5 g/dL [facility] Albumin 4.7 3.5 - 5.0 g/dL [facility] Alk phos 62 40 - 130 Units/L [facility] ALT 35 7 - 55 Units/L [facility] AST 32 10 - 50 Units/L [facility] Blood 11/23/2024 3:31 PM WRINGER AND SETTER 11/23/2024 3:34 PM WRINGER AND SETTER us Melonie Concepcion MD LAB BLOOD ORDERABLES Final R esult [facility] [address] [facility] Department [place] [address] * TRANSESOPHAGEAL ECHO (ZHENG) W DOPPLER/CF WO CONTRAST (11/06/2024 11:50 AM WRINGER AND SETTER) Anatomical Region Laterality Modality Ultrasound 11/06/2024 11:2 8 AM WRINGER AND SETTER Narrative 11/06/2024 11:58 AM WRINGER AND SETTER Transesophageal Echocardiogram + + :Name: SHANA CROSS Study Date: 11/06/2024 Status: B : : Patient Location: [facility]^^^[facility] Height: 71 in : : Weight: 225 lb: :: 1955 Gender: Male BSA: 2.2 m2 : :Reason For Study: Stroke/TIA, assess for intracardiac shunt : :Ordering Physician: JEANNE, : :SULEMAN : :Referring Physician: DOROTHY, : :VALERIO READ : :Performed By: Angela : :AMAIRANI Landin : + + Procedure Zheng probe # is '6 '. A transesophageal echocardiogram was performed. Informed consent for Transesophageal Echocardiogram, and use of a contrast agent as needed, was obtained prior to the procedure. The patient was brought to the cardiac catheterization lab in a fasting state. An intravenous line was placed. A topical anesthetic agent was used for oropharangeal anesthesia. A bite block was inserted. IV concious sedation was administered using versed and fentanyl. The transesophageal probe was passed without difficulty. The usual views were obtained; basal, mid-esophageal, transgastric and aortic views. Agitated normal saline contrast was injected. The patient's vital signs, including blood pressure, heart rate, pulse oximetry and cardiac rhythm were monitored throughout the procedure and remained stable. The patient tolerated the procedure well without evidence of orophangeal or esophageal trauma. There were no complications. Left Ventricle Left ventricular systolic function is normal. The left ventricular ejection fraction is normal. Left ventricular chamber size is normal. Right Ventricle The right ventricle is normal in size and function. Atria The left atrium is mildly dilated. No thrombus is detected in the left atrial appendage. Right atrial size is normal. The atrial septum is aneurysmal. There is no Doppler evidence for an atrial septal defect. Very tiny amount of bubbles crossed the interatrial septum suggestive of tiny PFO. Mitral Valve There is mild to moderate mitral regurgitation. The mitral valve is normal. Tricuspid Valve There is trace tricuspid regurgitation. The tricuspid valve is normal. Aortic Valve Trace aortic regurgitation. No aortic stenosis . The aortic valve is trileaflet. The aortic valve opens well. Pulmonic Valve The pulmonic valve is not well seen, but is grossly normal. Great Vessels The aortic root is normal size. Pericardium There is no pericardial effusion. Interpretation Summary Left ventricular systolic function is normal. The left ventricular ejection fraction is normal. The left atrium is mildly dilated. No thrombus is detected in the left atrial appendage. There is mild to moderate mitral regurgitation. There is trace tricuspid regurgitation. Trace aortic regurgitation. Very tiny amount of bubbles crossed the interatrial septum suggestive of tiny PFO. + + :Measurements with Normals : + + Electronically signed by: Silvestre Botello MD 11/06/2024 12:00 PM Procedure Note Silvestre Botello MD - 11/06/2024 Transesophageal Echocardiogram + + :Name: SHANA CROSS Study Date: 11/06/2024 Status:MHB : : Patient Location: [facility] Height: 71in : : Weight:225 lb: :: 1955 Gender: Male BSA: 2.2m2 : :Reason For Study: Stroke/TIA, assess for intracardiac shunt: :Ordering Physician: JEANNE,: :SULEMAN: :Referring Physician: DOROTHY,: :VALERIO READ: :Performed By: Angela: :AMAIRANI Landin: + + Procedure Zheng probe # is '6 '. A transesophageal echocardiogram was performed.Informed consent for Transesophageal Echocardiogram, and use of a contrast agentas needed, was obtained prior to the procedure. The patient was brought tot cardiac catheterization lab in a fasting state. An intravenous line was placed. A topical anesthetic agent was used for oropharangeal anesthesia.A bite block was inserted. IV concious sedation was administered usingversed and fentanyl. The transesophageal probe was passed without difficulty.The usual views were obtained; basal, mid-esophageal, transgastric andaortic views. Agitated normal saline contrast was injected. The patient's vital signs, including blood pressure, heart rate, pulse oximetry and cardiacrhythm were monitored throughout the procedure and remained stable. The patient tolerated the procedure well without evidence of orophangeal oresophageal trauma. There were no complications. Left Ventricle Left ventricular systolic function is normal. The left ventricularejection fraction is normal. Left ventricular chamber size is normal. Right Ventricle The right ventricle is normal in size and function. Atria The left atrium is mildly dilated. No thrombus is detected in the leftatrial appendage. Right atrial size is normal. The atrial septum is aneurysmal.There is no Doppler evidence for an atrial septal defect. Very tiny amount of bubbles crossed the interatrial septum suggestive of tiny PFO. Mitral Valve There is mild to moderate mitral regurgitation. The mitral valve isnormal. Tricuspid Valve There is trace tricuspid regurgitation. The tricuspid valve is normal. Aortic Valve Trace aortic regurgitation. No aortic stenosis . The aortic valve is trileaflet. The aortic valve opens well. Pulmonic Valve The pulmonic valve is not well seen, but is grossly normal. Great Vessels The aortic root is normal size. Pericardium There is no pericardial effusion. Interpretation Summary Left ventricular systolic function is normal. The left ventricular ejection fraction is normal. The left atrium is mildly dilated. No thrombus is detected in the left atrial appendage. There is mild to moderate mitral regurgitation. There is trace tricuspid regurgitation. Trace aortic regurgitation. Very tiny amount of bubbles crossed the interatrial septum suggestive oftiny PFO. + + :Measurements with Normals: + + Electronically signed by: Silvestre Botello MD 11/06/2024 12:00 PM us Suleman Moreno ASSISTANT OFFSET PRESS OPERATOR CV ECHO PROCEDURES Edited * eGFR (11/06/2024 9:50 AM WRINGER AND SETTER) eGFR 68 >=60 mL/min/1. 73 m2 Comment: Interpretive Data Reference Interval Normal >/= 90 mL/min/1.73m2 Mildly decreased* 60 - 89 mL/min/1.73m2 Mildly to moderately decreased 45 - 59 mL/min/1.73m2 Moderately to severely decreased 30 - 44 mL/min/1.73m2 Severely decreased 15 - 29 mL/min/1.73m2 Kidney Failure < 15 mL/min/1.73m2 *Relative to young adult level Estimated glomerular filtration rate is determined by the 2020 CKD-EPI equation recommended by the National Kidney Foundation (A Unifying Approach to GFR Estimation: Recommendations of the NKF-ASK Task Force on Reassessing the Inclusion of Race in Diagnosing Kidney Disease, JASN 2020). The CKD-EPI equation should not be used for patients with unstable renal function and has not been validated in children and those over 70. Current interpretive data was last reviewed 2021. Blood 11/06/2024 9:50 AM WRINGER AND SETTER 11/06/2024 9:54 AM WRINGER AND SETTER us Silvestre Botello MD LAB BLOOD ORDERABLES Final Result [facility] [address] [facility] Department [place] [address] * Differential, auto (11/06/2024 9:50 AM WRINGER AND SETTER) Pathologist [facility] Neutrophil abs 3.3 1.5 - 6.5 K/cumm Imm gran abs 0.0 0.0 - 0.1 K/cumm [facility] Lymphocyte abs 1.6 0.8 - 3.3 K/cumm [facility] Monocyte abs 0.4 0.2 - 0.8 K/cumm [facility] Eosinophil abs 0.1 0.0 - 0.5 K/cumm [facility] Basophil abs 0.0 0.0 - 0.1 K/cumm [facility] Neutrophil pct 60.7 % [facility] Comment: Interpretive Data Percent cell count reference ranges are not reported, since discordance with absolute values may lead to misinterpretation of CBC data. Current Interpretive Data was last revised on 2018. Imm gran pct 0.4 % [facility] Comment: Interpretive Data Percent cell count reference ranges are not reported, since discordance with absolute values may lead to misinterpretation of CBC data. Current Interpretive Data was last revised on 2018. Lymphocyte pct 28.9 % [facility] Comment: Interpretive Data Percent cell count reference ranges are not reported, since discordance with absolute values may lead to misinterpretation of CBC data. Current Interpretive Data was last revised on 2018. Monocyte pct 7.5 % [facility] Comment: Interpretive Data Percent cell count reference ranges are not reported, since discordance with absolute values may lead to misinterpretation of CBC data. Current Interpretive Data was last revised on 2018. Eosinophil pct 2.0 % [facility] Comment: Interpretive Data Percent cell count reference ranges are not reported, since discordance with absolute values may lead to misinterpretation of CBC data. Current Interpretive Data was last revised on 2018. Basophil pct 0.5 % [facility] Comment: Interpretive Data Percent cell count reference ranges are not reported, since discordance with absolute values may lead to misinterpretation of CBC data. Current Interpretive Data was last revised on 2018. Blood 11/06/2024 9:50 AM WRINGER AND SETTER 11/06/2024 9:54 AM WRINGER AND SETTER us Silvestre Botello MD LAB BLOOD ORDERABLES Final Result [facility] [address] [facility] Department [place] [address] * CBC with auto differential (11/06/2024 9:50 AM WRINGER AND SETTER) WBC 5.5 3.8 - 9.9 K/cumm Hgb 14.0 13.0 - 17.5 g/dL [facility] Hct 41.1 38.9 - 50.3 % [facility] Plt 226 150 - 400 K/cumm [facility] MPV 9.6 9.1 - 12.3 fL [facility] RBC 4.58 4.30 - 5.80 M/cumm [facility] MCV 89.7 81.3 - 96.4 fL [facility] MCH 30.6 27.1 - 33.3 pg [facility] MCHC 34.1 32.3 - 35.7 g/dL [facility] RDW CV 12.8 11.1 - 14.9 % [facility] RD SD 41.7 35.7 - 48.1 fL [facility] NRBC abs 0.00 0.00 - 0.01 K/cumm [facility] Blood 11/06/2024 9:50 AM WRINGER AND SETTER 11/06/2024 9:54 AM WRINGER AND SETTER Narrative [facility] - 11/06/2024 10:01 AM WRINGER AND SETTER If most recent labs were drawn prior to 4 AM, draw only prior to initiating procedure. Silvestre Botello MD LAB BLOOD ORDERABLES Final Result Performing Organization Address [facility] Co de Phone Number [address] [place] [address] * aPTT (11/06/2024 9:50 AM WRINGER AND SETTER) aPTT 28 22 - 37 sec Comment: Interpretive data aPTT test has not been evaluated for monitoring heparin therapy. The anti-Xa is the preferred test. Current interpretive data was last revised on 2019. Blood 11/06/2024 9:50 AM WRINGER AND SETTER 11/06/2024 9:54 AM WRINGER AND SETTER Silvestre Botello MD LAB BLOOD ORDERABLES Final Result Performing Organization Address [facility] Co de Phone Number [address] [address] * Protime-INR (11/06/2024 9:50 AM WRINGER AND SETTER) PT 14.0 12.0 - 14.6 sec INR 1.1 0.9 - 1.2 [facility] Comment: Ref Range High Interpretive data Oral anticoagulant therapeutic ranges: Venous thromboembolism prophylaxis or treatment: 2.0-3.0 CARDIOLOGY Standard range: 2.0-3.0 High-intensity range: 2.5-3.5 Refer to indication-specific guidelines for appropriate target ranges for prosthetic heart valve replacement. Current interpretive data was last revised on 2019. Blood 11/06/2024 9:50 AM WRINGER AND SETTER 11/06/2024 9:54 AM WRINGER AND SETTER Silvestre Botello MD LAB BLOOD ORDERABLES Final Result Performing Organization Address [facility] de Phone Number [facility] [address] [address] * Basic metabolic panel (11/06/2024 9:50 AM WRINGER AND SETTER) [facility] Sodium 138 135 - 145 mmol/L Potassium, pl 4.6 3.3 - 4.9 mmol/L [facility] Chloride 104 97 - 110 mmol/L [facility] CO2 26 22 - 32 mmol/L [facility] Anion gap 8 2 - 15 mmol/L [facility] BUN 13 6 - 25 mg/dL [facility] Creatinine 1.16 0.80 - 1.30 mg/dL [facility] Glucose 100 70 - 199 mg/dL [facility] Comment: Interpretive Data Fasting glucose >/= 126 mg/dl is diagnostic for diabetes. Fasting is defined as no caloric intake for at least 8 hours. Fasting glucose between 100 mg/dl to 125 mg/dl is diagnostic of prediabetes. In a patient with classic symptoms of hyperglycemia or hyperglycemic crisis, a random glucose >/= 200 mg/dl is diagnostic for diabetes. In the absence of unequivocal hyperglycemia, results should be confirmed by repeat testing. The classification and Diagnosis of Diabetes Diabetes Care 2021; 46: S19-S40. Current interpretive data was last revised 2022. Calcium 10.1 8.5 - 10.3 mg/dL [facility] Blood 11/06/2024 9:50 AM WRINGER AND SETTER 11/06/2024 9:54 AM WRINGER AND SETTER Silvestre Botello MD LAB BLOOD ORDERABLES Final Result Performing Organization Address City/[facility] Co de Phone Number [address] [place] [address] * CT Head WO Contrast (11/01/2024 6:36 PM WRINGER AND SETTER) Anatomical Region Laterality Modality Head and Neck N/A Computed Tomogra phy 11/01/2024 6:44 PM WRINGER AND SETTER Narrative 11/01/2024 6:48 PM WRINGER AND SETTER EXAM DESCRIPTION: CT HEAD WO CONTRAST REASON FOR STUDY: 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 Presents today for lightheadedness and near syncope. Non focal exam., concern for ICH Pt reports having a blood clot to my eye and now my blood pressure is high . Pt states being dx with blood clot to L eye at [facility] after being transferred from [facility] and having a loop recorder placed last week. Pt now reports intermittent CP and dizziness with high blood pressure. Pt is currently denying CP at this time. TECHNIQUE: Axial images acquired through the brain without intravenous contrast. Images stored on PACS. Automated exposure control was used as a dose optimization technique for this examination. COMPARISON: None FINDINGS: BRAIN: No hemorrhage, edema or mass effect. No recent infarct. Normal white matter. EXTRA-AXIAL SPACES: No fluid collections. No masses. CALVARIUM: No fracture. SINUSES/MASTOIDS: No fluid or mucosal thickening. ORBITS: No significant abnormality. OTHER: No other significant abnormality. IMPRESSION: No acute intracranial findings. THIS IS AN ELECTRONICALLY VERIFIED FINAL REPORT 11/01/2024 6:48 PM - Electronically signed by Dirk Whaley M.D. KT T: Report ID: [id number] Reading Location: [place] [address] Procedure Note Dirk Whaley MD - 11/01/2024 EXAM DESCRIPTION: CT HEAD WO CONTRAST REASON FOR STUDY: recent left central retinal artery occlusion 10 daysago. Presents today for lightheadedness and near syncope. Non focal exam.,concern for ICH Pt reports having a blood clot to my eye and now my blood pressure ishigh . Pt states being dx with blood clot to L eye at [facility] after being[facility] from [facility] and having a loop recorder placed last week. Pt now reports intermittent CP and dizziness with high blood pressure. Pt is currently denying CP at this time. TECHNIQUE: Axial images acquired through the brain without intravenous contrast. Images stored on PACS. Automated exposure control was used asa dose optimization technique for this examination. COMPARISON: None FINDINGS: BRAIN: No hemorrhage, edema or mass effect. No recent infarct. Normal white matter. EXTRA-AXIAL SPACES: No fluid collections. No masses. CALVARIUM: No fracture. SINUSES/MASTOIDS: No fluid or mucosal thickening. ORBITS: No significant abnormality. OTHER: No other significant abnormality. IMPRESSION: No acute intracranial findings. THIS IS AN ELECTRONICALLY VERIFIED FINAL REPORT 11/01/2024 6:48 PM - Electronically signed by Dirk Whaley M.D. KT T: Report ID: [id number] Reading Location: [place] [address] Siva Jhaveri MD IMG CT PROCEDURES Final Re sult * (ABNORMAL) Urinalysis reflex to microscopic and culture Urine (11/01/2024 6:13 PM WRINGER AND SETTER) Color, ur Yellow Yellow Clarity, ur Cloudy(A) Clear [facility] Specific gravity, ur 1.025 1.003 - 1.030 [facility] pH, urine 5.5 [facility] Comment: Interpretive Data U rine pH is affected by diet, medications, systemic acid-base disturbances, and renal tubular function. pH may affect urinary stone formation. For example, urine pH below 6.0 may help reduce the tendency for calcium phosphate stones and pH greater than 6.0 may reduce the tendency for uric acid stone formation. Source: [facility] Current Interpretive Data was last revised on 2017 Protein, ur ql Negative Negative [facility] Glucose, ur ql Negative Negative [facility] Ketones, ur Negative Negative [facility] Bilirubin, ur Negative Negative [facility] Blood, ur Negative Negative [facility] Urobilinogen, ur <2.0 <2.0 mg/dL [facility] Nitrite, ur Negative Negative [facility] Leukocyte esterase, ur Negative Negative [facility] UA reflex comment Reflex conditions for microscopic UA and culture not met. [facility] Urine 11/01/2024 6:13 PM WRINGER AND SETTER 11/01/2024 6:16 PM WRINGER AND SETTER Siva Jhaveri MD LAB MICROBIOLOGY - GENERAL ORDERABLES Final Result [facility] [address] [facility] [place] [address] * (ABNORMAL) Drugs of Abuse Screen, Urine without Confirmation (11/01/2024 6:13 PM WRINGER AND SETTER) [facility] Amphetamine, ur Not Detected CutOff 500ng/mL Comment: Interpretive Data - Amphetamines: Samples containing greater than 500 ng/mL d-methamphetamine or other cross-reacting amphetamine compounds are reported as positive. Amphetamine immunoassays are subject to significant false positive rates due to cross-reactivity of non-amphetamine drugs. Confirmatory testing required for definitive results. Current Interpretive Data was last reviewed 2023. Barbiturates, ur Not Detected CutOff 200ng/mL [facility] Comment: Interpretive Data - Barbiturates: Samples containing greater than 200 ng/mL secobarbital or other cross-reacting barbiturate compounds are reported as positive. False positive and false negative results are possible. Confirmatory testing required for definitive results. Current Interpretive Data was last reviewed 2023. Benzodiazepines, ur Screen Positive, presumptive (A) CutOff 100ng/mL [facility] Comment: Interpretive Data - Benzodiazepines: Samples containing greater than 100 ng/mL nordiazepam or other cross-reacting compounds are reported as positive. False positive and false negative results are possible. Confirmatory testing required for definitive results. Current Interpretive Data was last reviewed 2023. Cannabinoids, ur Not Detected CutOff 50 ng/mL [facility] Comment: Interpretive Data - Cannabinoids: Samples containing greater than 50 ng/mL delta-9 THC -COOH or other cross- reacting compounds are reported as positive. False positive and false negative results are possible. Confirmatory testing required for definitive results. Current Interpretive Data was last reviewed 2023. Cocaine, ur Not Detected CutOff 150ng/mL [facility] Comment: Interpretive Data - Cocaine: Samples containing greater than 150 ng/mL benzoylecgonine or other cross- reacting compounds are reported as positive. False positive and false negative results are possible. Confirmatory testing required for definitive results. Current Interpretive Data was last reviewed 2023. Fentanyl, Ur Not Detected CutOff 5 ng/mL [facility] Comment: Interpretive Data - Fentanyl: Samples containing greater than 5 ng/mL norfentanyl, fentanyl, or other cross-reacting fentanyl compounds are reported as positive. False positive and false negative results are possible. Confirmatory testing required for definitive results. Current Interpretive Data was last reviewed 2023. Methadone, ur Not Detected CutOff 300ng/mL [facility] Comment: Interpretive Data - Methadone: Samples containing greater than 300 ng/mL d,l-methadone or other cross-reacting compounds are reported as positive. False positive and false negative results are possible. Confirmatory testing required for definitive results. Current Interpretive Data was last reviewed 2023. Opiates, ur Not Detected CutOff 300ng/mL [facility] Comment: Interpretive Data - Opiates: Samples containing greater than 300 ng/mL morphine or other cross-reacting compounds are reported as positive. False positive and false negative results are possible. Confirmatory testing required for definitive results. Current Interpretive Data was last reviewed 2023. Oxycodone, ur Not Detected CutOff 100ng/mL [facility] Comment: Interpretive Data - Oxycodone: Samples containing greater than 100 ng/mL oxycodone or other cross-reacting compounds are reported as positive. False positive and false negative results are possible. Confirmatory testing required for definitive results. Current Interpretive Data was last reviewed 2023. Phencyclidine, ur Not Detected CutOff 25 ng/mL [facility] Comment: Interpretive Data - Phencyclidine: Samples containing greater than 25 ng/mL phencyclidine or other cross-reacting compounds are reported as positive. False positive and false negative results are possible. Confirmatory testing required for definitive results. Current Interpretive Data was last reviewed 2023. Urine Creatinine 190 mg/dL [facility] Comment: Interpretive Data Urine Creatinine: < 10 mg/dL is extremely dilute = or > 10 but < 20 mg/dL is dilute = or > 20 mg/dL is normal Current Interpretive Data was last revised on 2017. Urine 11/01/2024 6:13 PM WRINGER AND SETTER 11/01/2024 6:16 PM WRINGER AND SETTER Narrative [facility] - 11/01/2024 6:42 PM WRINGER AND SETTER Drug of Abuse screening is performed by immunoassay for medical purposes only. This is not to be used for Pain Management purposes. Siva Jhaveri MD LAB URINE ORDERABLES Final Result Performing Organization Address City/[facility] Co de Phone Number [place] [id number] [facility] [place] [address] * Influenza A/B, RSV, and COVID-19 PCR Nasopharyngeal (11/01/2024 6:12 PM WRINGER AND SETTER) Pathologist [facility] COVID-19 RNA Negative Negative Influenza A RNA Negative Negative [facility] Influenza B RNA Negative Negative [facility] RSV RNA Negative Negative [facility] Comment: Interpretive data: Testing performed by [facility]. This test is performed using the [employer] Xpert Xpress CoV-2/Flu/RSV plus assay. This is a multiplex, real-time reverse transcriptase PCR assay intended for the qualitative detection of nucleic acid from SARS-CoV-2, influenza A, influenza B, and respiratory syncytial virus. This assay has been cleared by the [place] Food and Drug administration. The performance characteristics have been verified by the [facility]. Results must be considered in the clinical context, and a negative result does not rule out infection. Interpretive Data last revised 2023 Nasopharyngeal 11/01/2024 6: 12 PM WRINGER AND SETTER 11/01/2024 6:16 PM WRINGER AND SETTER Narrative [facility] - 11/01/2024 6:54 PM WRINGER AND SETTER Is the Patient experiencing symptoms consistent with COVID?->Unknown Siva Jhaveri MD LAB MICROBIOLOGY - GENERAL ORDERABLES Final Result Performing Organization Address [facility] Co de Phone Number [facility] [address] [facility] [place] [address] * Troponin T high-sensitivity 2-hour (11/01/2024 4:38 PM WRINGER AND SETTER) Pathologist [facility] Trop T hs 12 <=22 ng/L Comment: Interpretive Data For further hscTnT resources including the diagnostic algorithm and an aid in interpretation, copy and paste this link: https://nrl.testcatalog.org/show/hsTrop Current Interpretive Data last revised 2020. Trop T hs delta 3 ng/L [facility] Trop T hs interp Insignificant [facility] Blood 11/01/2024 4:38 PM WRINGER AND SETTER 11/01/2024 4:43 PM WRINGER AND SETTER Anna BARRERA LAB BLOOD ORDERABLES Final Result Performing Organization Address [facility] Co de Phone Number [facility] [address] [place] [address] * Troponin T high-sensitivity series (baseline, 2hr, 4hr, 6hr) (11/01/2024 2:21 PM WRINGER AND SETTER) Trop T hs 9 <=22 ng/L Comment: Interpretive Data For further hscTnT resources including the diagnostic algorithm and an aid in interpretation, copy and paste this link: https://nrl.testcatalog.org/show/hsTrop Current Interpretive Data last revised 2020. Blood 11/01/2024 2:21 PM WRINGER AND SETTER 11/01/2024 2:30 PM WRINGER AND SETTER Siva Jhaveri MD LAB BLOOD ORDERABLES Final Result Performing Organization Address [facility] Co de Phone Number [facility] [address] [place] [address] * (ABNORMAL) eGFR (11/01/2024 2:21 PM WRINGER AND SETTER) eGFR 58(L) >=60 mL/min/1. 73 m2 Comment: Interpretive Data Reference Interval Normal >/= 90 mL/min/1.73m2 Mildly decreased* 60 - 89 mL/min/1.73m2 Mildly to moderately decreased 45 - 59 mL/min/1.73m2 Moderately to severely decreased 30 - 44 mL/min/1.73m2 Severely decreased 15 - 29 mL/min/1.73m2 Kidney Failure < 15 mL/min/1.73m2 *Relative to young adult level Estimated glomerular filtration rate is determined by the 2020 CKD-EPI equation recommended by the National Kidney Foundation (A Unifying Approach to GFR Estimation: Recommendations of the NKF-ASK Task Force on Reassessing the Inclusion of Race in Diagnosing Kidney Disease, JASN 2020). The CKD-EPI equation should not be used for patients with unstable renal function and has not been validated in children and those over 70. Current interpretive data was last reviewed 2021. Blood 11/01/2024 2:21 PM WRINGER AND SETTER 11/01/2024 2:30 PM WRINGER AND SETTER us Siva Jhaveri MD LAB BLOOD ORDERABLES Final Result [facility] [address] [facility] Department [place] [address] * Differential, auto (11/01/2024 2:21 PM WRINGER AND SETTER) Pathologist [facility] Neutrophil abs 3.8 1.5 - 6.5 K/cumm Imm gran abs 0.0 0.0 - 0.1 K/cumm [facility] Lymphocyte abs 1.8 0.8 - 3.3 K/cumm [facility] Monocyte abs 0.4 0.2 - 0.8 K/cumm [facility] Eosinophil abs 0.2 0.0 - 0.5 K/cumm [facility] Basophil abs 0.0 0.0 - 0.1 K/cumm [facility] Neutrophil pct 61.5 % [facility] Comment: Interpretive Data Percent cell count reference ranges are not reported, since discordance with absolute values may lead to misinterpretation of CBC data. Current Interpretive Data was last revised on 2018. Imm gran pct 0.7 % [facility] Comment: Interpretive Data Percent cell count reference ranges are not reported, since discordance with absolute values may lead to misinterpretation of CBC data. Current Interpretive Data was last revised on 2018. Lymphocyte pct 28.5 % [facility] Comment: Interpretive Data Percent cell count reference ranges are not reported, since discordance with absolute values may lead to misinterpretation of CBC data. Current Interpretive Data was last revised on 2018. Monocyte pct 6.2 % [facility] Comment: Interpretive Data Percent cell count reference ranges are not reported, since discordance with absolute values may lead to misinterpretation of CBC data. Current Interpretive Data was last revised on 2018. Eosinophil pct 2.6 % [facility] Comment: Interpretive Data Percent cell count reference ranges are not reported, since discordance with absolute values may lead to misinterpretation of CBC data. Current Interpretive Data was last revised on 2018. Basophil pct 0.5 % [facility] Comment: Interpretive Data Percent cell count reference ranges are not reported, since discordance with absolute values may lead to misinterpretation of CBC data. Current Interpretive Data was last revised on 2018. Blood 11/01/2024 2:21 PM WRINGER AND SETTER 11/01/2024 2:30 PM WRINGER AND SETTER Siva Jhaveri MD LAB BLOOD ORDERABLES Final Result Performing Organization Address [facility] Co de Phone Number [address] [place] [address] * CBC with auto differential (11/01/2024 2:21 PM WRINGER AND SETTER) WBC 6.1 3.8 - 9.9 K/cumm Hgb 14.3 13.0 - 17.5 g/dL [facility] Hct 42.4 38.9 - 50.3 % [facility] Plt 243 150 - 400 K/cumm [facility] MPV 9.7 9.1 - 12.3 fL [facility] RBC 4.69 4.30 - 5.80 M/cumm [facility] MCV 90.4 81.3 - 96.4 fL [facility] MCH 30.5 27.1 - 33.3 pg [facility] MCHC 33.7 32.3 - 35.7 g/dL [facility] RDW CV 12.8 11.1 - 14.9 % [facility] RDW SD 41.6 35.7 - 48.1 fL [facility] NRBC abs 0.00 0.00 - 0.01 K/cumm [facility] Blood Venous blood specimen / Unknown 11/01/2024 2:21 PM WRINGER AND SETTER 11/01/2024 2:30 PM WRINGER AND SETTER Siva Jhaveri MD LAB BLOOD ORDERABLES Final Result Performing Organization Address City/[facility]/ZIP Co de Phone Number [facility] [address] [place] [address] * Phosphorus (11/01/2024 2:21 PM WRINGER AND SETTER) [facility] Phosphorus, pl 3.1 2.3 - 4.5 mg/dL Blood 11/01/2024 2:21 PM WRINGER AND SETTER 11/01/2024 2:30 PM WRINGER AND SETTER Siva Jhaveri MD LAB BLOOD ORDERABLES Final Result Performing Organization Address [facility] de Phone Number [address] [place] [address] * Magnesium (11/01/2024 2:21 PM WRINGER AND SETTER) [facility] Magnesium 1.6 1.4 - 2.5 mg/dL Blood 11/01/2024 2:21 PM WRINGER AND SETTER 11/01/2024 2:30 PM WRINGER AND SETTER Siva Jhaveri MD LAB BLOOD ORDERABLES Final Result Performing Organization Address [place] [facility] Phone Number [address] [address] * Ethanol (11/01/2024 2:21 PM WRINGER AND SETTER) [facility] Ethanol <10 <=10 mg/dL Comment: Interpretive Data Legal limit of intoxication > or = 80 mg/dL Levels > or = 400 mg/dL are potentially TOXIC. Current interpretive data was last revised on 2018. Blood 11/01/2024 2:21 PM WRINGER AND SETTER 11/01/2024 2:30 PM WRINGER AND SETTER Siva Jhaveri MD LAB BLOOD ORDERABLES Final Result Performing Organization Address [facility] de Phone Number [address] [address] * (ABNORMAL) Comprehensive metabolic panel (11/01/2024 2:21 PM WRINGER AND SETTER) [facility] Sodium 139 135 - 145 mmol/L Potassium, pl 4.1 3.3 - 4.9 mmol/L [facility] Chloride 104 97 - 110 mmol/L [facility] CO2 25 22 - 32 mmol/L [facility] Anion gap 10 2 - 15 mmol/L [facility] BUN 17 6 - 25 mg/dL [facility] Creatinine 1.32(H) 0.80 - 1.30 mg/dL [facility] Glucose 118 70 - 199 mg/dL [facility] Comment: Interpretive Data Fasting glucose >/= 126 mg/dl is diagnostic for diabetes. Fasting is defined as no caloric intake for at least 8 hours. Fasting glucose between 100 mg/dl to 125 mg/dl is diagnostic of prediabetes. In a patient with classic symptoms of hyperglycemia or hyperglycemic crisis, a random glucose >/= 200 mg/dl is diagnostic for diabetes. In the absence of unequivocal hyperglycemia, results should be confirmed by repeat testing. The classification and Diagnosis of Diabetes Diabetes Care 2021; 46: S19-S40. Current interpretive data was last revised 2022. Calcium 10.2 8.5 - 10.3 mg/dL [facility] Bilirubin, total 0.4 0.1 - 1.2 mg/dL [facility] Protein, pl 7.1 6.5 - 8.5 g/dL [facility] Albumin 4.4 3.5 - 5.0 g/dL [facility] Alk phos 63 40 - 130 Units/L [facility] ALT 30 7 - 55 Units/L [facility] AST 31 10 - 50 Units/L [facility] Blood 11/01/2024 2:21 PM WRINGER AND SETTER 11/01/2024 2:30 PM WRINGER AND SETTER Siva Jhaveri MD LAB BLOOD ORDERABLES Final Result [facility] [address] [facility] Department [place] [address] * XR Chest 1 Vw Portable (if patient condition/safety warrant portable) (11/01/2024 2:13 PM WRINGER AND SETTER) Anatomical Region Laterality Modality Body, Chest N/A Computed Radiogr aphy 11/01/2024 2:19 PM WRINGER AND SETTER Narrative 11/01/2024 2:19 PM WRINGER AND SETTER EXAM DESCRIPTION: XR CHEST 1 VIEW REASON FOR STUDY: chest pain Pt states onset chest pain, fatigue, malaise x 2-3 days, states this has been going on intermittently for over a month TECHNIQUE: Frontal radiographic view(s) of the chest. COMPARISON: 10/28/2024. FINDINGS: LUNGS: No focal opacity, pleural effusion, or pneumothorax. HEART/MEDIASTINUM: Cardiac silhouette normal in size. Mild ectasia thoracic aorta. Mediastinal and hilar contours appear normal. LINES/TUBES: There is a loop recorder over the left side of the chest. Curvilinear metallic density left upper quadrant. BONES: No acute osseous abnormality. IMPRESSION: No acute cardiopulmonary abnormality. THIS IS AN ELECTRONICALLY VERIFIED FINAL REPORT 11/01/2024 2:19 PM - Electronically signed by Joey Polanco M.D. T: Report ID: [id number] Reading Location: [place] [address] Procedure Note Joey Polanco Jr., MD - 11/01/2024 EXAM DESCRIPTION: XR CHEST 1 VIEW REASON FOR STUDY: chest pain Pt states onset chest pain, fatigue, malaise x 2-3 days, states this hasbeen going on intermittently for over a month TECHNIQUE: Frontal radiographic view(s) of the chest. COMPARISON: 10/28/2024. FINDINGS: LUNGS: No focal opacity, pleural effusion, or pneumothorax. HEART/MEDIASTINUM: Cardiac silhouette normal in size. Mild ectasiathoracic aorta. Mediastinal and hilar contours appear normal. LINES/TUBES: There is a loop recorder over the left side of the chest. Curvilinear metallic density left upper quadrant. BONES: No acute osseous abnormality. IMPRESSION: No acute cardiopulmonary abnormality. THIS IS AN ELECTRONICALLY VERIFIED FINAL REPORT 11/01/2024 2:19 PM - Electronically signed by Joey Polanco M.D. T: Report ID: [id number] Reading Location: [id number] [place] Siva Jhaveri MD IMG XR PROCEDURES Final Re sult * ECG 12 lead (11/01/2024 2:05 PM WRINGER AND SETTER) Ventricular Rate EKG/Min 62 BPM [facility] Atrial Rate 62 BPM [facility] DE-Interval (MSEC) 154 ms [facility] QRS-Interval (MSEC) 86 ms [facility] QT-Interval (MSEC) 390 ms [facility] QTc 395 ms [facility] P Bulan 4 degrees [facility] R Bulan 29 degrees [facility] T Bulan 63 degrees [facility] Diagnosis Normal sinus rhythm Normal ECG When compared with ECG of 28-OCT-2024 06:56, No significant change was found Confirmed by SILVESTRE BOTELLO M.D. ([id number]) on 11/01/2024 9:52:42 PM [facility] 11/01/2024 2:05 PM WRINGER AND SETTER 11/01/2024 9:52 PM WRINGER AND SETTER us Siva Jhaveri MD ECG ORDERABLES Final Resu lt [facility] * LEFT HEART CATHETERIZATION WITH CORONARY ANGIOGRAPHY AND WITH AND WITHOUT LEFT VENTRICULOGRAM (10/28/2024 9:34 AM WRINGER AND SETTER) Anatomical Region Laterality Modality X-Ray Angiograph y Narrative 10/28/2024 10:11 AM WRINGER AND SETTER Patient Id: Shana Cross is a 69 y.o. male. MR#: [id number] Date of the procedure: 10/28/2024 Procedure: Left heart catheterization Coronary angiogram Left ventricular cineangiogram Moderate sedation Indications: I was asked by nurse practitioner Marisela Jasmin to do cardiac catheterization on this patient had mild nonocclusive coronary artery disease by catheterization in 2017, hypertension, dyslipidemia, chest pain, fatigue and abnormal coronary CT with a significant possible stenosis involving the mid LAD. Patient also had a recent renal arterial occlusion. Echo showed no shunt by color-flow Doppler. Patient also had internal loop recorder placement at [facility] [facility]. I discussed the coronary CT findings with him. False positives and negatives discussed. Option of medical therapy versus cardiac catheterization discussed. Pros and cons of each were discussed and patient wishes to proceed with cardiac catheterization. All his questions answered. Procedure and complications of the cardiac catheterization, PCI and stent placement discussed with the patient in detail. Alternatives for cardiac catheterization including medical therapy also discussed. Pros and cons of the medical therapy and cardiac catheterization also discussed. Patient understood and agreed to proceed with cardiac catheterization. Patient aware of all the risks of the cardiac catheterization and the PCI including but not limited to bleeding, bruising, need for blood transfusion, neurovascular complications, need for peripheral vascular surgery, thrombus formation, embolization, CVA, pulmonary emboli, pseudoaneurysm formation, AV fistula formation, loss of limb, allergic reactions, worsening of renal function, renal failure, possible permanent hemodialysis, x-ray exposure, coronary perforation, dissection of coronaries vessels, distal embolization, pericardial effusion, need for pericardiocentesis, subacute closure of the coronaries, arrhythmias, emergency bypass, CVA, need for intra-aortic balloon pump placement, need for IFR measurement, need for Impella placement need for blood pressure supporting medications and devices. Also discussed about dislodgement of the stents with embolization also. Patient also aware of risk of . Patient verbalized understanding of all the risks and benefits. Patient understood and agreed to proceed with cardiac catheterization and intervention. Procedure Note: Patient brought to cardiac catheterization lab after obtaining informed consent. Right femoral region prepped and draped in the usual fashion. Six Sudanese sheath placed in the right femoral artery by using Seldinger technique. Left heart catheterization and DOUGHERTY left ventricular cineangiogram performed by using 6 Sudanese pigtail catheter. Left and right coronary angiography performed using 6 Sudanese JL4 and 6 JR4 catheters. There were no complications. The sheath removed and hemostasis secured with manual pressure Anesthesia: Local Moderate sedation: Patient received 1 mg of Versed and 25 mcg of fentanyl by the nurse for conscious sedation. Patient vital signs monitored under my supervision in the blood bank laboratory technician during and after the procedure for at least the 30 minutes. Please see the blood bank laboratory technician log report for details Hemodynamics: Procedure performed with patient in sinus rhythm. Systemic arterial blood pressure is 144/66 with a mean of 110 mm of mercury. Left ventricular systolic pressure is 143 mm of mercury with an end-diastolic pressure 10 mm of mercury . There is no peak to peak gradient noted across the aortic valve on pullback Medication: lidocaine: 20 cc Sublingual nitroglycerin: 0.4 mg Contrast: 111 cc IV Versed: 2 mg IV Fentanyl: 50 mcg Fluoroscopy: Mild calcification of coronaries noted Left ventricular cineangiogram: DOUGHERTY left ventricular cineangiogram demonstrates normal left ventricle wall motion systolic function visually estimated ejection fraction around 60-65%. Coronary circulation: Coronary circulation is right dominant Left main coronary artery: Normal angiographically Left anterior descending artery: Gives diagonal branches and extends to the apex and it has a mid 10-15% tubular irregularity. Remaining LAD has no significant disease. First diagonal branch is tiny vessel and normal 2nd diagonal branch is very large and gives multiple side branches and normal and the 3rd diagonal branch is small. Circumflex coronary artery: Gives marginal branches and has no significant disease. First marginal is small and 2nd marginal is large and has 20% irregularity and a 3rd marginal is large and normal. Right coronary artery: Gives PDA and PLV branches and it has a mid 10-15% irregularity followed by focal 30% stenosis. Distally has about 20% stenosis. PDA has a 15-20% irregularity. PLV branch has no significant disease. Impressions: Nonocclusive coronary artery disease Normal left wall motion systolic function Normal left ventricular end-diastolic pressure Plan: Findings discussed with the patient , and nurse practitioner Mrs. Moreno. Continue IV fluids. Encouraged patient to take p.o. fluids. Advised patient not to drive for 24 hours and not to lift any weights more than 5 lb for next 1 week. Advised patient to contact me or go to emergency room if patient has any groin problems. Advised patient follow-up with the primary care physician in 2 weeks. Risk modification discussed. Patient has follow-up appointment with me on 19 of November and I will see him at that time. He may need ZHENG also given his retinal arterial occlusion. Copy to Valerio Morrow MD This report was transcribed using the [employer] voice recognition system without human social research assistant. In an effort to expedite patient care, this report has not been adjusted for typographical, grammatical, and syntax by a trained medical resident. Despite proof reading there may be errors. Please contact me if you have any questions. Procedure Note Silvestre Botello MD - 10/28/2024 Patient Id: Shana Cross is a 69 y.o. male. MR#: [id number] Date of the procedure: 10/28/2024 Procedure: Left heart catheterization Coronary angiogram Left ventricular cineangiogram Moderate sedation Indications: I was asked by nurse practitioner Mrs. Castellanos to do cardiaccatheterization on this patient had mild nonocclusive coronary arterydisease by catheterization in 2017, hypertension, dyslipidemia, chestpain, fatigue and abnormal coronary CT with a significant possiblestenosis involving the mid LAD. Patient also had a recent renal arterialocclusion. Echo showed no shunt by color-flow Doppler. Patient also [facility] loop [facility] at [facility]. Idiscussed the coronary CT findings with him. False positives andnegatives discussed. Option of medical therapy versus cardiaccatheterization discussed. Pros and cons of each were discussed andpatient wishes to proceed with cardiac catheterization. All his questionsanswered. Procedure and complications of the cardiac catheterization, PCI and stentplacement discussed with the patient in detail. Alternatives for cardiaccatheterization including medical therapy also discussed. Pros and consof the medical therapy and cardiac catheterization also discussed.Patient understood and agreed to proceed with cardiac catheterization.Patient aware of all the risks of the cardiac catheterization and the PCIincluding but not limited to bleeding, bruising, need for bloodtransfusion, neurovascular complications, need for peripheral vascularsurgery, thrombus formation, embolization, CVA, pulmonary emboli,pseudoaneurysm formation, AV fistula formation, loss of limb, allergicreactions, worsening of renal function, renal failure, possible permanenthemodialysis, x-ray exposure, coronary perforation, dissection ofcoronaries vessels, distal embolization, pericardial effusion, need forpericardiocentesis, subacute closure of the coronaries, arrhythmias,emergency bypass, CVA, need for intra-aortic balloon pump placement, needfor IFR measurement, need for Impella placement need for blood pressuresupporting medications and devices. Also discussed about dislodgement ofthe stents with embolization also. Patient also aware of risk of .Patient verbalized understanding of all the risks and benefits. Patientunderstood and agreed to proceed with cardiac catheterization andintervention. Procedure Note: Patient brought to cardiac catheterization lab after obtaining informedconsent. Right femoral region prepped and draped in the usual fashion.Six Sudanese sheath placed in the right femoral artery by using Seldingertechnique. Left heart catheterization and DOUGHERTY left ventricularcineangiogram performed by using 6 Sudanese pigtail catheter. Left andright coronary angiography performed using 6 Sudanese JL4 and 6 [id number]. There were no complications. The sheath removed andhemostasis secured with manual pressure Anesthesia: Local Moderate sedation: Patient received 1 mg of Versed and 25 mcg of fentanylby the nurse for conscious sedation. Patient vital signs monitored undermy supervision in the blood bank laboratory technician during and after the procedure for at leastthe 30 minutes. Please see the blood bank laboratory technician log report for details Hemodynamics: Procedure performed with patient in sinus rhythm. Systemic arterial blood pressure is 144/66 with a mean of 110 mm ofmercury. Left ventricular systolic pressure is 143 mm of mercury with anend-diastolic pressure 10 mm of mercury . There is no peak to peak gradient noted across the aortic valve onpullback Medication: lidocaine: 20 cc Sublingual nitroglycerin: 0.4 mg Contrast: 111 cc IV Versed: 2 mg IV Fentanyl: 50 mcg Fluoroscopy: Mild calcification of coronaries noted Left ventricular cineangiogram: DOUGHERTY left ventricular cineangiogram demonstrates normal left ventricle wallmotion systolic function visually estimated ejection fraction -83%. Coronary circulation: Coronary circulation is right dominant Left main coronary artery: Normal angiographically Left anterior descending artery: Gives diagonal branches and extends to the apex and it has a mid 10-15%tubular irregularity. Remaining LAD has no significant disease. Firstdiagonal branch is tiny vessel and normal 2nd diagonal branch is verylarge and gives multiple side branches and normal and the 3rd diagonalbranch is small. Circumflex coronary artery: Gives marginal branches and has no significant disease. First marginal issmall and 2nd marginal is large and has 20% irregularity and a 3rdmarginal is large and normal. Right coronary artery: Gives PDA and PLV branches and it has a mid 10-15% irregularity followedby focal 30% stenosis. Distally has about 20% stenosis. PDA has a 15-20%irregularity. PLV branch has no significant disease. Impressions: Nonocclusive coronary artery disease Normal left wall motion systolic function Normal left ventricular end-diastolic pressure Plan: Findings discussed with the patient , and nurse practitioner . Continue IV fluids. Encouraged patient to take p.o. fluids.Advised patient not to drive for 24 hours and not to lift any weights morethan 5 lb for next 1 week. Advised patient to contact me or go toemergency room if patient has any groin problems. Advised patientfollow-up with the primary care physician in 2 weeks. Risk modificationdiscussed. Patient has follow-up appointment with me on 19 of Novemberand I will see him at that time. 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 Copy to Valerio Morrow MD This report was transcribed using the [employer] voicerecognition system without human social research assistant. In an effort toexpedite patient care, this report has not been adjusted fortypographical, grammatical, and syntax by a trained medicaltranscriptionist. Despite proof reading there may be errors. Pleasecontact me if you have any questions. us Silvestre Botello MD CV CARDIAC CATH PROCEDURES Final Result * ABO / Rh Confirmation Testing (10/28/2024 7:04 AM WRINGER AND SETTER) ABO/Rh Confirmation O Positive B Blood 10/28/2024 7:04 AM WRINGER AND SETTER 10/28/2024 7:07 AM WRINGER AND SETTER Silvestre Botello MD LAB BLOOD ORDERABLES Final Result [facility] [address] [facility] [place] [address] [facility] * ECG 12 lead (10/28/2024 6:56 AM WRINGER AND SETTER) Ventricular Rate EKG/Min 53 BPM [facility] Atrial Rate 53 BPM [facility] DE-Interval (MSEC) 192 ms [facility] QRS-Interval (MSEC) 86 ms [facility] QT-Interval (MSEC) 408 ms [facility] QTc 382 ms [facility] P Bulan -9 degrees [facility] R Bulan 18 degrees [facility] T Bulan 56 degrees [facility] Diagnosis Sinus bradycardia Otherwise normal ECG When compared with ECG of 11-APR-2022 10:28, Incomplete right bundle branch block is no longer Present Confirmed by SILVESTRE BOTELLO M.D. ([id number]) on 10/29/2024 8:31:45 AM [facility] 10/28/2024 6:56 AM WRINGER AND SETTER 10/29/2024 8:31 AM WRINGER AND SETTER Silvestre Botello MD ECG ORDERABLES Final Resul t [facility] * eGFR (10/28/2024 6:50 AM WRINGER AND SETTER) eGFR 66 >=60 mL/min/1. 73 m2 Comment: Interpretive Data Reference Interval Normal >/= 90 mL/min/1.73m2 Mildly decreased* 60 - 89 mL/min/1.73m2 Mildly to moderately decreased 45 - 59 mL/min/1.73m2 Moderately to severely decreased 30 - 44 mL/min/1.73m2 Severely decreased 15 - 29 mL/min/1.73m2 Kidney Failure < 15 mL/min/1.73m2 *Relative to young adult level Estimated glomerular filtration rate is determined by the 2020 CKD-EPI equation recommended by the National Kidney Foundation (A Unifying Approach to GFR Estimation: Recommendations of the NKF-ASK Task Force on Reassessing the Inclusion of Race in Diagnosing Kidney Disease, JASN 2020). The CKD-EPI equation should not be used for patients with unstable renal function and has not been validated in children and those over 70. Current interpretive data was last reviewed 2021. Blood 10/28/2024 6:50 AM WRINGER AND SETTER 10/28/2024 6:54 AM WRINGER AND SETTER Silvestre Botello MD LAB BLOOD ORDERABLES Final Result [facility] [facility] Department of Laboratories [place], [place] [id number] * Differential, auto (10/28/2024 6:50 AM WRINGER AND SETTER) Neutrophil abs 3.3 1.5 - 6.5 K/cumm Imm gran abs 0.0 0.0 - 0.1 K/cumm [facility] Lymphocyte abs 1.4 0.8 - 3.3 K/cumm [facility] Monocyte abs 0.4 0.2 - 0.8 K/cumm [facility] Eosinophil abs 0.1 0.0 - 0.5 K/cumm [facility] Basophil abs 0.0 0.0 - 0.1 K/cumm [facility] Neutrophil pct 62.5 % [facility] Comment: Interpretive Data Percent cell count reference ranges are not reported, since discordance with absolute values may lead to misinterpretation of CBC data. Current Interpretive Data was last revised on 2018. Imm gran pct 0.6 % [facility] Comment: Interpretive Data Percent cell count reference ranges are not reported, since discordance with absolute values may lead to misinterpretation of CBC data. Current Interpretive Data was last revised on 2018. Lymphocyte pct 27.0 % [facility] Comment: Interpretive Data Percent cell count reference ranges are not reported, since discordance with absolute values may lead to misinterpretation of CBC data. Current Interpretive Data was last revised on 2018. Monocyte pct 7.0 % [facility] Comment: Interpretive Data Percent cell count reference ranges are not reported, since discordance with absolute values may lead to misinterpretation of CBC data. Current Interpretive Data was last revised on 2018. Eosinophil pct 2.3 % [facility] Comment: Interpretive Data Percent cell count reference ranges are not reported, since discordance with absolute values may lead to misinterpretation of CBC data. Current Interpretive Data was last revised on 2018. Basophil pct 0.6 % [facility] Comment: Interpretive Data Percent cell count reference ranges are not reported, since discordance with absolute values may lead to misinterpretation of CBC data. Current Interpretive Data was last revised on 2018. Blood 10/28/2024 6:50 AM WRINGER AND SETTER 10/28/2024 6:54 AM [employer]INGER AND SETTER us Silvestre Botello MD LAB BLOOD ORDERABLES Final Result [facility] [address] [facility] Department [place] [address] * CBC with auto differential (10/28/2024 6:50 AM WRINGER AND SETTER) WBC 5.3 3.8 - 9.9 K/cumm Hgb 14.9 13.0 - 17.5 g/dL [facility] Hct 43.2 38.9 - 50.3 % [facility] Plt 226 150 - 400 K/cumm [facility] MPV 9.7 9.1 - 12.3 fL [facility] RBC 4.80 4.30 - 5.80 M/cumm [facility] MCV 90.0 81.3 - 96.4 fL [facility] MCH 31.0 27.1 - 33.3 pg [facility] MCHC 34.5 32.3 - 35.7 g/dL [facility] RDW CV 12.5 11.1 - 14.9 % [facility] RDW SD 41.1 35.7 - 48.1 fL [facility] NRBC abs 0.00 0.00 - 0.01 K/cumm [facility] Blood 10/28/2024 6:50 AM WRINGER AND SETTER 10/28/2024 6:54 AM WRINGER AND SETTER Narrative [facility] - 10/28/2024 6:58 AM WRINGER AND SETTER If most recent labs were drawn prior to 4 AM, draw only prior to initiating procedure. Silvestre Botello MD LAB BLOOD ORDERABLES Final Result Performing Organization Address City/[facility] Co de Phone Number [address] [employer] [place], [place] [id number] * ABO/Rh (10/28/2024 6:50 AM WRINGER AND SETTER) [facility] ABO/Rh O Positive Blood 10/28/2024 6:50 AM WRINGER AND SETTER 10/28/2024 6:53 AM WRINGER AND SETTER Narrative [facility] - 10/28/2024 7:45 AM WRINGER AND SETTER Has the patient had Daratumumab or Isatuximab in the past 6 months?->Unknown Silvestre Botello MD LAB BLOOD BANK TEST ORDERAB LES Final Result Performing Organization Address City/[facility] Co de Phone Number [address] [place] [address] * aPTT (10/28/2024 6:50 AM WRINGER AND SETTER) Pathologist [facility] aPTT 30 22 - 37 sec Comment: Interpretive data aPTT test has not been evaluated for monitoring heparin therapy. The anti-Xa is the preferred test. Current interpretive data was last revised on 2019. Blood 10/28/2024 6:50 AM WRINGER AND SETTER 10/28/2024 6:54 AM WRINGER AND SETTER Silvestre Botello MD LAB BLOOD ORDERABLES Final Result Performing Organization Address [facility] Co de Phone Number [address] [address] * Protime-INR (10/28/2024 6:50 AM WRINGER AND SETTER) PT 13.7 12.0 - 14.6 sec INR 1.0 0.9 - 1.2 [facility] Comment: Ref Range High Interpretive data Oral anticoagulant therapeutic ranges: Venous thromboembolism prophylaxis or treatment: 2.0-3.0 CARDIOLOGY Standard range: 2.0-3.0 High-intensity range: 2.5-3.5 Refer to indication-specific guidelines for appropriate target ranges for prosthetic heart valve replacement. Current interpretive data was last revised on 2019. Blood 10/28/2024 6:50 AM WRINGER AND SETTER 10/28/2024 6:54 AM WRINGER AND SETTER Result [facility] Silvestre Botello MD LAB BLOOD ORDERABLES Final Result Performing Organization Address [facility] de Phone Number [address] [address] * Antibody screen (10/28/2024 6:50 AM WRINGER AND SETTER) Veronica, indirect, Gel Interpretation Negative ABSC Blood 10/28/2024 6:50 AM WRINGER AND SETTER 10/28/2024 6:53 AM WRINGER AND SETTER Narrative [facility] - 10/28/2024 7:45 AM WRINGER AND SETTER Has the patient had Daratumumab or Isatuximab in the past 6 months?->Unknown Silvestre Botello MD LAB BLOOD BANK TEST ORDERAB LES Final Result Performing Organization Address [facility]/State/ZIP Co de Phone Number [facility] [address] [facility] Department [place] [address] * Basic metabolic panel (10/28/2024 6:50 AM WRINGER AND SETTER) Sodium 140 135 - 145 mmol/L Potassium, pl 4.4 3.3 - 4.9 mmol/L [facility] Chloride 104 97 - 110 mmol/L [facility] CO2 28 22 - 32 mmol/L [facility] Anion gap 8 2 - 15 mmol/L [facility] BUN 12 6 - 25 mg/dL [facility] Creatinine 1.18 0.80 - 1.30 mg/dL [facility] Glucose 106 70 - 199 mg/dL [facility] Comment: Interpretive Data Fasting glucose >/= 126 mg/dl is diagnostic for diabetes. Fasting is defined as no caloric intake for at least 8 hours. Fasting glucose between 100 mg/dl to 125 mg/dl is diagnostic of prediabetes. In a patient with classic symptoms of hyperglycemia or hyperglycemic crisis, a random glucose >/= 200 mg/dl is diagnostic for diabetes. In the absence of unequivocal hyperglycemia, results should be confirmed by repeat testing. The classification and Diagnosis of Diabetes Diabetes Care 2021; 46: S19-S40. Current interpretive data was last revised 2022. Calcium 10.3 8.5 - 10.3 mg/dL [facility] Blood 10/28/2024 6:50 AM WRINGER AND SETTER 10/28/2024 6:54 AM WRINGER AND SETTER Silvestre Botello MD LAB BLOOD ORDERABLES Final Result Performing Organization Address [facility]/State/ZIP Co de Phone Number [facility] [address] [facility] Department [place] [address] * XR Chest 1 View (10/28/2024 6:49 AM WRINGER AND SETTER) Anatomical Region Laterality Modality Body, Chest N/A Computed Radiogr aphy 10/28/2024 1:44 PM WRINGER AND SETTER Narrative 10/28/2024 1:45 PM WRINGER AND SETTER EXAM DESCRIPTION: XR CHEST 1 VIEW REASON FOR STUDY: Cardiac Cath Pt getting Cardiac Cath this am TECHNIQUE: Frontal radiographic view(s) of the chest. COMPARISON: 04/11/2022. FINDINGS: LUNGS: No focal opacity, pleural effusion, or pneumothorax. HEART/MEDIASTINUM: Cardiac silhouette normal in size. Mediastinal and hilar contours appear normal. LINES/TUBES: A loop recorder is noted. Surgical clips are present in the left upper quadrant. BONES: No acute osseous abnormality. IMPRESSION: No acute cardiopulmonary abnormality. THIS IS AN ELECTRONICALLY VERIFIED FINAL REPORT 10/28/2024 1:45 PM - Electronically signed by Joey Polanco M.D. T: Report ID: [id number] Reading Location: [id number] Procedure Note Joey Polanco Jr., MD - 10/28/2024 EXAM DESCRIPTION: XR CHEST 1 VIEW REASON FOR STUDY: Cardiac Cath Pt getting Cardiac Cath this am TECHNIQUE: Frontal radiographic view(s) of the chest. COMPARISON: 04/11/2022. FINDINGS: LUNGS: No focal opacity, pleural effusion, or pneumothorax. HEART/MEDIASTINUM: Cardiac silhouette normal in size. Mediastinal andhilar contours appear normal. LINES/TUBES: A loop recorder is noted. Surgical clips are present in the left upper quadrant. BONES: No acute osseous abnormality. IMPRESSION: No acute cardiopulmonary abnormality. THIS IS AN ELECTRONICALLY VERIFIED FINAL REPORT 10/28/2024 1:45 PM - Electronically signed by Joey Polanco M.D. T: Report ID: [id number] Reading Location: [id number] us Silvestre Botello MD IMG XR PROCEDURES Final Res ult * CTA HEART W CALCIUM SCORING (10/16/2024 1:52 PM WRINGER AND SETTER) Anatomical Region Laterality Modality Chest N/A Computed Tomogra phy, Computed Radiography 10/16/2024 3:05 PM WRINGER AND SETTER Narrative 10/16/2024 3:23 PM WRINGER AND SETTER EXAM DESCRIPTION: CTA HEART W CALCIUM SCORING HISTORY: Chest pain, nonspecific, Dyspnea on exertion (TY) Chest pain, nonspecific; Dyspnea on exertion (TY) Dx: TY (dyspnea on exertion) R06.09 (ICD-10-CM); Chest pain, unspecified type R07.9 (ICD-10-CM) TECHNIQUE: CT angiogram of the heart and arteries was performed with and without intravenous contrast. 3D MIP images rendered on scanning unit and reviewed at time of interpretation. Automated exposure control was used as a dose optimization technique for this examination. The patient stated that they could not tolerate additional metoprolol or rate-controlling medications. The patient did not want to receive nitroglycerin. CONTRAST TYPE/DOSE: 100mL of IOVERSOL 350 MG IODINE/ML INTRAVENOUS SYRINGE injected via intravenous COMPARISON: No prior chest CT available. FINDINGS: Calcium score: 154 Right coronary artery and Posterior descendin Left main: 66 Left anterior descendin Circumflex: 0 Right coronary artery: Best seen on systolic images. Widely patent, no stenosis. Left main coronary artery: Best seen on systolic images. Small calcification proximal aspects causes minimal stenosis. Left anterior descending coronary artery: Poorly seen on the diastolic images. It is best seen on the systolic images. The proximal LAD has a small calcification which causes minimal stenosis. The mid LAD has a calcified plaque which causes a severe stenosis. This area is poorly evaluated secondary to blooming and motion and the degree of stenosis may be overestimated. Calcified plaque within the 2nd diagonal cause mild stenoses. Evaluation of the distal LAD is nondiagnostic. Circumflex: The proximal and proximal to mid circumflex are widely patent. Distally the evaluation is nondiagnostic secondary to motion. Heart: Mild left atrial enlargement. No pericardial effusion. Other: Visualized portions of the upper abdomen appear within normal limits. Visualized portions of the lung appear clear. IMPRESSION: 1. Calcified plaque in the mid LAD which causes severe stenosis. However evaluation of this area is limited secondary to motion and the degree of stenosis could be overestimated by blooming. Recommend further evaluation. 2. Otherwise no substantial stenosis. 3. Evaluation of the distal LAD and circumflex is nondiagnostic. 4. Calcium score 154. Moderate coronary calcium. THIS IS AN ELECTRONICALLY VERIFIED FINAL REPORT 10/16/2024 3:23 PM - Electronically signed by Dirk ALVAREZ T: Report ID: [id number] Reading Location: [id number] Procedure Note Dirk Ward MD - 10/16/2024 EXAM DESCRIPTION: CTA HEART W CALCIUM SCORING HISTORY: Chest pain, nonspecific, Dyspnea on exertion (TY) Chest pain, nonspecific; Dyspnea on exertion (TY) Dx: TY (dyspnea on exertion) R06.09 (ICD-10-CM); Chest pain, unspecified type R07.9(ICD-10-CM) TECHNIQUE: CT angiogram of the heart and arteries was performed with and without intravenous contrast. 3D MIP images rendered on scanning unitand reviewed at time of interpretation. Automated exposure control was usedas a dose optimization technique for this examination. The patient stated that they could not tolerate additional metoprolol or rate-controllingmedications. The patient did not want to receive nitroglycerin. CONTRAST TYPE/DOSE: 100mL of IOVERSOL 350 MG IODINE/ML INTRAVENOUSSYRINGE injected via intravenous COMPARISON: No prior chest CT available. FINDINGS: Calcium score: 154 Right coronary artery and Posterior descendin Left main: 66 Left anterior descendin Circumflex: 0 Right coronary artery: Best seen on systolic images. Widely patent, no stenosis. Left main coronary artery: Best seen on systolic images. Smallcalcification proximal aspects causes minimal stenosis. Left anterior descending coronary artery: Poorly seen on the diastolic images. It is best seen on the systolic images. The proximal LAD has asmall calcification which causes minimal stenosis. The mid LAD has a calcified plaque which causes a severe stenosis. Thisarea is poorly evaluated secondary to blooming and motion and the degree of stenosis may be overestimated. Calcified plaque within the 2nd diagonal cause mild stenoses. Evaluation of the distal LAD is nondiagnostic. Circumflex: The proximal and proximal to mid circumflex are widelypatent. Distally the evaluation is nondiagnostic secondary to motion. Heart: Mild left atrial enlargement. No pericardial effusion. Other: Visualized portions of the upper abdomen appear within normallimits. Visualized portions of the lung appear clear. IMPRESSION: 1. Calcified plaque in the mid LAD which causes severe stenosis.However evaluation of this area is limited secondary to motion and the degree of stenosis could be overestimated by blooming. Recommend furtherevaluation. 2. Otherwise no substantial stenosis. 3. Evaluation of the distal LAD and circumflex is nondiagnostic. 4. Calcium score 154. Moderate coronary calcium. THIS IS AN ELECTRONICALLY VERIFIED FINAL REPORT 10/16/2024 3:23 PM - Electronically signed by Dirk Ward M.D. KN T: Report ID: [id number] Reading Location: [id number] us Suleman Moreno ASSISTANT OFFSET PRESS OPERATOR IMG CT PROCEDURES Final Result * PSA diagnostic (10/12/2024 8:50 AM WRINGER AND SETTER) PSA-Total 0.17 <=6.20 ng/mL Comment: Interpretive Data AGE SEX REFERENCE INTERVAL 0 minutes-150 years Female None 0 minutes-49 years Male None 50-59 years Male 0-3.90 60-69 years Male 0-5.40 70-79 years Male 0-6.20 80-150 years Male 0-6.20 The Mark PSA Total assay procedure was used. Results from different manufacturers or methods may not be comparable. Serial testing should be performed using the same method. Current interpretive data last revised 22. Blood 10/12/2024 8:50 AM WRINGER AND SETTER 10/12/2024 9:30 AM WRINGER AND SETTER Odalys Giron ASSISTANT OFFSET PRESS OPERATOR LAB BLOOD ORDERABLES F inal Result [facility] Department [place] [address] * COLONOSCOPY (12/07/2021 8:21 AM WRINGER AND SETTER) Anatomical Region Laterality Modality Other Narrative Procedure Note Kerwin Dawkins MD - 12/07/2021 8:21 AM CST [facility] Patient Name: Shana Cross Procedure Date: 12/07/2021 8:21 AM Date of : 1955 Admit Type: Outpatient Age: 66 Gender: Male Attending MD: Kerwin Dawkins M.D. Room: [facility] ENDOSCOPY ROOM 3 Note Status: Finalized Procedure: Colonoscopy Indications: Clinically significant diarrhea of unexplainedorigin Referring MD: Kurt Alexander D.O. Providers: Kerwin Dawkins M.D., Suleman Bansal M.D. Medicines: Monitored Anesthesia Care Complications: No immediate complications. Estimated Blood Loss: Estimated blood loss was minimal. Procedure: Pre-Anesthesia Assessment: - Prior to the procedure, a History and Physicalwas performed, and patient medications and allergieswere reviewed. The patient is competent. The risks and benefits of the procedure and the sedation optionsand risks were discussed with the patient. Allquestions were answered and informed consent was obtained. Patient identification and proposed procedure were verified by the physician in the pre-procedurearea. Mental Status Examination: alert and oriented.Airway Examination: normal oropharyngeal airway and neck mobility. Respiratory Examination: clear to auscultation. CV Examination: normal. Prophylactic Antibiotics: The patient does not requireprophylactic antibiotics. Prior Anticoagulants: The patient has taken no anticoagulant or antiplatelet agents. ASA Grade Assessment: II - A patient with mild systemic disease. After reviewing the risks and benefits,the patient was deemed in satisfactory condition to undergo the procedure. The anesthesia plan was touse monitored anesthesia care (MAC). Immediately priorto administration of medications, the patient was re-assessed for adequacy to receive sedatives. The heart rate, respiratory rate, oxygen saturations, blood pressure, adequacy of pulmonary ventilation,and response to care were monitored throughout the procedure. The physical status of the patient was re-assessed after the procedure. - Immediately prior to administration ofmedications, the patient was re-assessed for adequacy to receive sedatives. - The risks and benefits of the procedure and the sedation options and risks were discussed with the patient. All questions were answered and informed consent was obtained. The benefits, risks and alternatives of theprocedure and sedation were discussed and informed consentwas obtained. All questions were answered. Please referto the signed informed consent document in the medical record. The scope was passed under direct vision.The Colonoscope was introduced through the anus and advanced to 4 cm into the ileum. The colonoscopywas performed without difficulty. The patient tolerated the procedure well. The quality of the bowel preparation was adequate to identify polyps 6 mmand larger in size. The bowel preparation used wasCoLyte via split dose instruction. Findings: The perianal and digital rectal examinations were normal. The terminal ileum appeared normal. Biopsies were taken with a cold forceps for histology. Verification of patient identification for the specimen was done. Estimated blood loss was minimal. Two semi-sessile polyps were found in the distal rectum. The polypswere 5 to 8 mm in size. These polyps were removed with a cold snare. Resection and retrieval were complete. Verification of patient identification for the specimen was done. Estimated blood loss was minimal. The colon (entire examined portion) appeared normal. Biopsies for histology were taken with a cold forceps from the ascending colon, transverse colon, sigmoid colon and rectum for evaluation ofmicroscopic colitis. Verification of patient identification for the specimen was done. Estimated blood loss was minimal. The exam was otherwise without abnormality on direct and retroflexion views. Anal papilla(e) were hypertrophied. Impression: - The examined portion of the ileum was normal. Biopsied. - Two 5 to 8 mm polyps in the distal rectum,removed with a cold snare. Resected and retrieved. - The entire examined colon is normal. Biopsied. - The examination was otherwise normal on directand retroflexion views. Recommendation: - Discharge patient to home. - Resume previous diet. - Continue present medications. - Await pathology results. - Repeat colon[facility] in 3 - [facility] on [facility] results. - Return to GI office in 8 weeks. Attending Participation: I was present and participated during the entire procedure from insertion to removal of the endoscope. Electronically signed by Kerwin Dawkins MD Kerwin Dawkins M.D. 12/07/2021 9:06:47 AM . Number of Addenda: 0 Note Initiated On: 12/07/2021 8:21 AM Recognized by the [place] [employer] for promoting quality in endoscopy Kerwin Dawkins MD ENDOSCOPY PROCEDURES Final Result from Last 3 Months or Most Recently Relevant to Health Maintenance Insurance [facility] MEDICARE ADVANTAGE MEDICARE [facility] MEDICARE ADVANTAGE [facility] MEDICARE Address: [address] [address] [place] [address] [facility] MEDICARE Address: [address] [place] [phone] [employer] MEDICARE ADVANTAGE [facility] MEDICARE Address: [address] [address] [place] [address] [employer] MEDICARE ADVANTAGE [facility] MEDICARE Address: [place] [id number] MEDICARE ADVANTAGE [facility] MEDICARE Address: [address] [address] [place] [id number] [facility] MEDICARE Address: [place] [id number] [place] [id number] [facility] MEDICARE Address: [address] [place], [place] [id number] MEDICARE ADVANTAGE [facility] MEDICARE Address: [address] [place] [address] MED[address] [facility] MEDICARE Address: [address] [address] [employer] MEDICARE ADVANTAGE [facility] MEDICARE Address: [place] [id number] [address] [place] [id number] Advance Directives For more information, please contact: [phone] * Full Code (Latest Code Status on File) Date Activated Date Inactivated Comments 11/23/2024 9:47 PM 11/25/2024 4:28 PM * Full Code Date Activated Date Inactivated Comments 11/06/2024 11:49 AM 11/07/2024 4:50 AM * Full Code Date Activated Date Inactivated Comments 10/28/2024 11:12 AM 10/28/2024 9:34 PM * Full Code Date Activated Date Inactivated Comments 04/07/2022 2:46 PM 04/09/2022 7:21 PM * Full Code Date Activated Date Inactivated Comments 12/07/2021 7:25 AM 12/07/2021 2:03 PM Care Teams 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 [place] [address] Nurse Practitioner Nurse Practitioner 02/19/21 Mike Cummings MD [address] [facility] [address] [place] [address] Consulting Physician Cardiovascular Disease 04/09/22 Kerwin Dawkins MD [address] [place] [address] Consulting Physician Gastroenterology 07/26/22 Oli Otero MD [address] [place] [address] Radiation Oncologist Radiation Oncology 04/14/23
--- OUTSIDE RECORDS SUMMARY | 2024-12-26 13:35 | XMS_ITS | Clinical Summary ---
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 / Unknown 10/21/2024 11:58 PM [facility] 10/22/2024 12:03 AM [facility] Kelly Newsome MD LAB - CHEMISTRY PIETRO DONOHUE [address] [address], [facility] [phone] * TROPONIN-I HIGH SENSITIVE BASELINE + 1HR (10/21/2024 10:04 PM [facility]) Troponin I High Sensitive 3 <=35 ng/L 10/21/2024 11:05 PM [facility] Blood BLOOD SPECIMEN / Unknown Venipuncture / Unknown 10/21/2024 10:04 PM [facility] 10/21/2024 10:32 PM [facility] Kelly Newsome MD LAB - CHEMISTRY PIETRO DONOHUE [facility] [address] [place] [address], [facility] [phone] * HEMOGLOBIN A1C (10/21/2024 10:04 PM [facility]) Hemoglobin A1c 5.1 <=5.6 % 10/22/2024 9:25 AM [facility] Estimated Average Glucose 100 mg/dL 10/22/2024 9:25 AM [facility] Comment: HbA1c Interpretation: Normal : < 5.7% Pre-diabetes: 5.7-6.4% Diabetes: Equal to or greater than 6.5% Test results diagnostic of diabetes should be repeated for confirmation. Treatment target values recommended by ADA and other clinical organizations should be used to evaluate metabolic control in patients. Reference: [place] [employer], Standards of Care in Diabetes -2020 In patients 70 years and older consider HbA1c target range of 7.0-7.5% (Reference: Rajesh Hummel et al. JAMDA. 2012) The Sebia assay for the measurement of HbA1c is a National Glycohemoglobin Standardization Program (NGSP) certified method. Blood BLOOD SPECIMEN / Unknown Venipuncture / Unknown 10/21/2024 10:04 PM [facility] 10/21/2024 10:31 PM [facility] Kelly Newsome MD LAB - CHEMISTRY PIETRO DONOHUE [facility] Organization Address City/State/ZIP Co de Phone Number [facility] [address] [place] [phone], [facility] [phone] * (ABNORMAL) LIPID PROFILE (10/21/2024 10:04 PM [facility]) Cholesterol Total 142 <200 mg/dL 10/21/2024 11:05 PM [facility] HDL 31(L) >40 mg/dL 10/21/2024 11:05 PM [facility] Comment: ATP III Classification of HDL Cholesterol: <40 mg/dL: Considered a major risk factor. >60 mg/dL: Considered a negative risk factor. LDL Calculated 82 <100 mg/dL 10/21/2024 11:05 PM [facility] Comment: ATP III Classification of LDL Cholesterol: <100 mg/dL: Optimal 100 - 129 mg/dL: Near Optimal/Above Optimal 130 - 159 mg/dL: Borderline High 160 - 189 mg/dL: High >190 mg/dL: Very High Triglycerides 145 <150 mg/dL 10/21/2024 11:05 PM [facility] Comment: ATP III Classification of Triglycerides: <150 mg/dL: Normal 150 - 199 mg/dL: Borderline High 200 - 400 mg/dL: High >500 mg/dL: Very High Blood BLOOD SPECIMEN / Unknown Venipuncture / Unknown 10/21/2024 10:04 PM [facility] 10/21/2024 10:32 PM [facility] Kelly Newsome MD LAB - CHEMISTRY PIETRO DONOHUE [address] [address], [facility] [phone] * CT Angio Brain And Neck (10/21/2024 8:15 PM [facility]) Anatomical Region Laterality Modality Head Computed Tomogra phy 10/21/2024 8:01 PM [facility] Impressions 10/21/2024 8:40 PM [facility] IMPRESSION: 1.No acute intracranial hemorrhage. 2.Please note that CT is insensitive to nonhemorrhagic strokes and MRI of the brain should be considered, if there is clinical concern for acute cerebral infarction. 3.No large arterial occlusions or significant stenoses identified in the head or neck. The report is dictated by Eula Frost MD (residential caregiver) I, Alvina Barajas MD have personally reviewed and interpreted this examination/study. > Interpreting Provider: Alvina Barajas MD on 10/21/2024 8:40 PM Narrative 10/21/2024 8:40 PM [facility] PROCEDURE: CT ANGIO BRAIN AND NECK, DATE/TIME OF EXAM: 10/21/2024 7:41 PM, LOCATION [facility] INDICATION: H54.62: Vision loss of left eye ADDITIONAL CLINICAL INFORMATION: Ordering Provider Reason For Exam: Stroke, vision loss EXAMINATION: 1. Computed tomographic (CT) angiography of the head without and with contrast 2. CT angiography of the neck with contrast TECHNIQUE: CT of the head was performed without contrast according to standard protocol. Then CT angiography of the head and neck was obtained after the uneventful administration of 75 mL Isovue-370 intravenous contrast. Three dimensional postprocessing was performed by the technologist and sent to the workstation for review. Stenosis measurements are based on NASCET criteria. CT dose reduction technique was used, including Automated Exposure Control. COMPARISON: No prior study is available for comparison at the time of this dictation. FINDINGS: Non-angiographic findings: No acute intracranial hemorrhage or intra- or extra-axial fluid collections are identified. There is mild cerebral volume loss with associated ex vacuo ventricular dilatation. The basal cisterns are patent. No mass effect or midline shift is seen. The culp-white matter differentiation is normal. Borderline low-lying cerebellar tonsils reaching down to the level of the foramen magnum on the right. Other than mild paranasal sinus disease, the visualized portions of the orbits, paranasal sinuses, and mastoids appear normal. There is deviation of the nasal septum with leftward spur. Mucous inclusion cyst of the right frontal sinus. No acute calvarial fracture is identified. No soft tissue abnormalities are identified in the neck. Mild multilevel degenerative disc and joint disease is noted. Angiographic findings: Neck: There is atherosclerotic disease of the aortic arch. There is a common origin of the innominate and left common carotid arteries from the aortic arch. There is scattered atherosclerotic calcification of the innominate and subclavian arteries. The right common and internal carotid arteries as well as the right carotid bifurcation are patent. The left common and internal carotid arteries as well as the left carotid bifurcation are patent. The cervical vertebral arteries are patent. Head: There is mild atherosclerotic disease involving the distal internal carotid arteries without significant focal stenosis. The anterior cerebral arteries are patent. The middle cerebral arteries are patent. The posterior cerebral arteries are patent with origin of both posterior cerebral arteries. There is atherosclerotic disease involving the distal vertebral arteries without significant focal stenosis. The basilar artery is patent patent. No aneurysms, vascular occlusions, or intracranial stenoses are identified. Procedure Note Alvina Barajas MD - 10/21/2024 PROCEDURE: CT ANGIO BRAIN AND NECK, DATE/TIME OF EXAM: 10/21/2024 7:41PM, LOCATION [facility] INDICATION: H54.62: Vision loss of left eye ADDITIONAL CLINICAL INFORMATION: Ordering Provider Reason For Exam: Stroke, vision loss EXAMINATION: 1. Computed tomographic (CT) angiography of the head without and with contrast 2. CT angiography of the neck with contrast TECHNIQUE: CT of the head was performed without contrast according to standard protocol. Then CT angiography of the head and neck was obtained after the uneventful administration of 75 mL Isovue-370 intravenous contrast. Three dimensional postprocessing was performed by the technologist and sent to the workstation for review. Stenosismeasurements are based on NASCET criteria. CT dose reduction technique was used, including Automated Exposure Control. COMPARISON: No prior study is available for comparison at the time ofthis dictation. FINDINGS: Non-angiographic findings: No acute intracranial hemorrhage or intra- or extra-axial fluidcollections are identified. There is mild cerebral volume loss with associated exvacuo ventricular dilatation. The basal cisterns are patent. No mass effect or midline shift is seen. The culp-white matter differentiation is normal. Borderline low-lying cerebellar tonsils reaching down to the level ofthe foramen magnum on the right. Other than mild paranasal sinus disease, the visualized portions of the orbits, paranasal sinuses, and mastoids appear normal. There isdeviation of the nasal septum with leftward spur. Mucous inclusion cyst of theright frontal sinus. No acute calvarial fracture is identified. No soft tissue abnormalities are identified in the neck. Mild multilevel degenerative disc and joint disease is noted. Angiographic findings: Neck: There is atherosclerotic disease of the aortic arch. There is a common origin of the innominate and left common carotid arteries from theaortic arch. There is scattered atherosclerotic calcification of the innominate and subclavian arteries. The right common and internal carotid arteriesas well as the right carotid bifurcation are patent. The left common and internal carotid arteries as well as the left carotid bifurcation are patent. The cervical vertebral arteries are patent. Head: There is mild atherosclerotic disease involving the distal internalcarotid arteries without significant focal stenosis. The anterior cerebralarteries are patent. The middle cerebral arteries are patent. The posterior cerebral arteries are patent with origin of both posteriorcerebral arteries. There is atherosclerotic disease involving the distalvertebral arteries without significant focal stenosis. The basilar artery ispatent patent. No aneurysms, vascular occlusions, or intracranial stenoses are identified. IMPRESSION: 1.No acute intracranial hemorrhage. 2.Please note that CT is insensitive to nonhemorrhagic strokes and MRIof the brain should be considered, if there is clinical concern for acute cerebral infarction. 3.No large arterial occlusions or significant stenoses identified in the head or neck. The report is dictated by Eula Frost MD (residential caregiver) I, Alvina Barajas MD have personally reviewed and interpretedthis examination/study. > Interpreting Provider: Alvina Barajas MD on 10/21/2024 8:40 PM Navneet Fisher MD CT ORDERABLES * PTT [facility] (10/21/2024 6:25 PM [facility]) APTT 29.6 23.0 - 38.4 Seconds 10/21/2024 7:16 PM [facility] Comment:Suggested therapeuti c range for full dose I.V. unfractionated heparin therapy for venous thromboembolism is 71 to 109 seconds. Blood BLOOD SPECIMEN / Unknown Venipuncture / Unknown 10/21/2024 6:25 PM [facility] 10/21/2024 6:31 PM [facility] Navneet Fisher MD LAB - COAGULATI ON ORDERABLES [facility] [address] [place] [address], [facility] [phone] * PT-INR [facility] (10/21/2024 6:25 PM [facility]) PT 13.5 12.1 - 14.8 Seconds 10/21/2024 7:16 PM [facility] INR 1.1 See Comment 10/21/2024 7:16 PM [facility] Comment:The suggested therap eutic range for standard coumadin (warfarin) therapy is an INR of 2.0-3.0. For high-risk patients (Mechanical Mitral Valve Prosthesis, etc.), the suggested prophylactic therapeutic range is an INR of 2.5-3.5. Blood BLOOD SPECIMEN / Unknown Venipuncture / Unknown 10/21/2024 6:25 PM [facility] 10/21/2024 6:31 PM [facility] Navneet Fisher MD LAB - COAGULATI ON ORDERABLES [address] [address], [facility] [phone] * C-REACTIVE PROTEIN (10/21/2024 6:25 PM [facility]) C-Reactive Protein <0.5 <=0.5 mg/dL 10/21/2024 7:25 PM [facility] Blood BLOOD SPECIMEN / Unknown Venipuncture / Unknown 10/21/2024 6:25 PM [facility] 10/21/2024 6:54 PM [facility] Navneet Fisher MD LAB - CHEMISTRY ORDERABLES [address] [address], [facility] [phone] * ERYTHROCYTE SEDIMENTATION RATE (10/21/2024 6:25 PM [facility]) Pathologist [facility] Erythrocyte Sedimentation Rate Westergren 2 0 - 20 MM/HR 10/21/2024 7:05 PM [facility] Blood BLOOD SPECIMEN / Unknown Venipuncture / Unknown 10/21/2024 6:25 PM [facility] 10/21/2024 6:54 PM [facility] Navneet Fisher MD LAB - HEMATOLOG Y ORDERABLES [address] [address], [facility] [phone] * CBC W AUTO DIFFERENTIAL (10/21/2024 6:25 PM [facility]) WBC 6.0 4.0 - 10.7 x10E9/L 10/21/2024 7:00 PM [facility] RBC Count 4.38 4.30 - 5.80 x10E12/L 10/21/2024 7:00 PM [facility] Hemoglobin 13.5 13.3 - 17.5 g/dL 10/21/2024 7:00 PM [facility] Hematocrit 38.8 38.7 - 51.1 % 10/21/2024 7:00 PM [facility] MCV 88.6 80.0 - 98.0 fL 10/21/2024 7:00 PM [facility] MCH 30.8 26.7 - 33.6 pg 10/21/2024 7:00 PM [facility] MCHC 34.8 31.7 - 36.3 g/dL 10/21/2024 7:00 PM [facility] RDW-CV 12.3 11.3 - 14.8 % 10/21/2024 7:00 PM [facility] Platelet Count 208 150 - 420 x10E9/L 10/21/2024 7:00 PM [facility] MPV 9.4 7.8 - 11.4 fL 10/21/2024 7:00 PM [facility] Neutrophil % 68.2 41.0 - 74.0 % 10/21/2024 7:00 PM [facility] Lymphocyte % 23.4 17.0 - 47.0 % 10/21/2024 7:00 PM [facility] Monocyte % 7.1 3.0 - 11.0 % 10/21/2024 7:00 PM [facility] Eosinophil % 0.7 0.0 - 7.0 % 10/21/2024 7:00 PM [facility] Basophil % 0.3 0.0 - 1.6 % 10/21/2024 7:00 PM [facility] Immature Granulocytes % 0.3 0.0 - 1.0 % 10/21/2024 7:00 PM [facility] Neutrophil Absolute 4.06 1.60 - 7.50 x10E9/L 10/21/2024 7:00 PM [facility] Lymphocyte Absolute 1.39 1.00 - 4.40 x10E9/L 10/21/2024 7:00 PM [facility] Monocyte Absolute 0.42 0.15 - 1.00 x10E9/L 10/21/2024 7:00 PM [facility] Eosinophil Absolute 0.04 0.00 - 0.60 x10E9/L 10/21/2024 7:00 PM [facility] Basophil Absolute 0.02 0.00 - 0.13 x10E9/L 10/21/2024 7:00 PM [facility] Blood BLOOD SPECIMEN / Unknown Venipuncture / Unknown 10/21/2024 6:25 PM [facility] 10/21/2024 6:54 PM [facility] Navneet Fisher MD LAB - HEMATOLOG Y ORDERABLES [facility] [address] [place] [address], [facility] [phone] * (ABNORMAL) COMPREHENSIVE METABOLIC PANEL (10/21/2024 6:25 PM [facility]) BUN 9 7 - 26 mg/dL 10/21/2024 7:20 PM [facility] Creatinine 1.09 0.71 - 1.16 mg/dL 10/21/2024 7:20 PM [facility] Sodium 140 136 - 145 mmol/L 10/21/2024 7:20 PM [facility] Potassium 3.9 3.5 - 4.5 mmol/L 10/21/2024 7:20 PM [facility] Chloride 107 98 - 107 mmol/L 10/21/2024 7:20 PM [facility] CO2 22 22 - 29 mmol/L 10/21/2024 7:20 PM [facility] Glucose 93 70 - 99 mg/dL 10/21/2024 7:20 PM [facility] Calcium 9.3 8.4 - 10.2 mg/dL 10/21/2024 7:20 PM [facility] Protein Total 6.7 6.0 - 8.3 g/dL 10/21/2024 7:20 PM [facility] Albumin 4.2 3.4 - 5.0 g/dL 10/21/2024 7:20 PM [facility] Bilirubin Total 0.6 0.2 - 1.2 mg/dL 10/21/2024 7:20 PM [facility] Alkaline Phosphatase 48 40 - 150 U/L 10/21/2024 7:20 PM [facility] ALT 38 5 - 55 U/L 10/21/2024 7:20 PM [facility] AST 30 5 - 34 U/L 10/21/2024 7:20 PM [facility] Anion Gap 11 6 - 16 10/21/2024 7:20 PM [facility] BUN/Creatinine Ratio 8 7 - 23 10/21/2024 7:20 PM [facility] Osmolality Calculated 288 275 - 295 mOsm/kg 10/21/2024 7:20 PM [facility] Albumin/Globulin Ratio 1.7 1.1 - 2.3 10/21/2024 7:20 PM [facility] eGFR by CKD-EPI 73(L) >=90 mL/min/1.7 3 m2 10/21/2024 7:20 PM [facility] Blood BLOOD SPECIMEN / Unknown Venipuncture / Unknown 10/21/2024 6:25 PM [facility] 10/21/2024 6:54 PM [facility] Navneet Fisher MD LAB - CHEMISTRY ORDERABLES [facility] [address] [place] [address], [facility] [phone] from Last 3 Months Advance Directives * Full Code (Latest Code Status on File) Date Activated Date Inactivated Comments 10/21/2024 9:04 PM 10/22/2024 6:44 PM Care Teams Breakfast Server Relationship Specialty Start Date End Date Jesus Martins MD [address] [id number] [place] [address] PCP - General Neurological Surgery 10/21/24
--- OUTSIDE RECORDS SUMMARY | 2024-12-26 13:35 | XMS_ITS ---
Author Organization [facility] Address [address] [place] [phone] Care Team Providers Care Licensed Mortgage Loan Officer Name Role Phone Omari Matthews MD Unavailable [phone] Bessie Blanco MD Unavailable [phone] Odalys Giron NP Unavailable Mike Cummings MD Unavailable Kerwin Dawkins MD Unavailable Oli Otero MD Unavailable [phone] Jesus Morrow MD Primary Care Provider [phone] Active Problems Problem Noted Date Diagnosed Date [...] (11/04/2021): Added automatically from request for surgery [id number] Ileitis 11/04/2021 Overview (11/04/2021): Added automatically from request for surgery [id number] Assessment & Plan (11/04/2021 8:24 PM [facility]): Noted to have had ileitis which was [...] (11/04/2021): Added automatically from request for surgery [id number] Assessment & Plan (11/04/2021 8:20 PM [facility]): EGD done in 2019 also showed a salmon-colored mucosa island just proximal to the GEJ. 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 He has GERD and currently on protonix 40 mg every day. Plan: Repeat EGD Esophagitis 11/04/2021 Overview (11/01/2024): Added automatically from request for surgery [id number] Last Assessment & Plan: EGD done in [...] (10/30/2018): Added automatically from request for surgery [id number] Gastrointestinal hemorrhage associated with olivia ritis 10/30/2018 Overview (10/30/2018): Added automatically from request for surgery [id number] Adenocarcinoma of prostate (CMS/HCC) 08/17/2018 Cancer Staging:Clinical: cT1c, PSA: 8.8, Grade Group: 3 - Signed by Eric Degroot MD on 11/28/2018 Elevated PSA 06/13/2018 Overview (06/13/2018): Added automatically from request for surgery [id number] Hypercholesteremia 05/28/2017 Assessment & Plan (02/08/2022 12:14 [...] of anterior abdominal wall 04/25/2013 Panic attacks Current Treatment and Therapy Plans No current plan information found. Past Treatment and Therapy Plans No past plan information found. Radiation Treatments * Course [id number] 11/23/2018 - 01/28/2019 Treatment Period Energy Fraction Dose Fractions Total Dose Plans Planned PROS AND NODE 11/23/2018 - 01/28/2019 180 25 / 4,500 PROST BOOST 01/02/2019 - 01/28/2019 180 19 / 3,420 Reference Points Delivered [id number] 11/23/2018 - 01/28/2019 4,500 [id number] 01/02/2019 - 01/28/2019 3,420 Lifetime Dose Tracking * Chemical Lifetime Dose Automatic Entry Manual Entr y Air kerma at the reference point (Ka,r) 917 mGy 0 mGy 917 mGy DLP 5,444 mGycm 5,444 mGycm 0 mGycm Resolved Problems Problem Noted Date Diagnosed Date Resolved Date Encounter for monitoring flecainide therapy 06/06/2022
--- OUTSIDE RECORDS SUMMARY | 2024-12-26 13:35 | XMS_ITS | Encounter Summary ---
Author Organization [facility] Address [address] [place] [address] Care Team Providers Care Supervisor Taping Name Role Phone Jesus Martins MD Primary Care Provider [phone] Encounter Details Date Type Department Care Team (Late Contact Info) Description 10/21/2024 Ophth Exam [facility] - Ophthalmology [address] [place] [phone] Rodri Zuñiga DO [address] [facility] [place] [phone] Social History Tobacco Use Types Packs/Day Years Used Date Smoking Tobacco: Every Day Cigarettes Alcohol Use Standard Drinks/Week Comments No 0 (1 standard drink = 0.6 oz pur e alcohol) Sex and Gender Information Value Date Recorded Sex Assigned at Not on file Gender Identity Not on file Sexual Orientation Not on file documented as of this encounter Plan of Treatment Upcoming Encounters Date Type Department Care Team (Late Contact Info) Description 12/31/2024 2:00 PM CDT Office Visit [facility] - Ophthalmology [address] [place] [phone] Hever Winter MD [address] [place] [address] DEPT [place] [phone] 01/06/2025 2:30 PM CDT Office Visit [facility] - Neurology [address] [place] [phone] Kelly Newsome MD [address] [place] [phone] 02/04/2025 8:30 AM CDT Office Visit [facility] - Ophthalmology [address] [facility], [place] [address] Aron Clark, DILLON [address] [place] [phone] documented as of this encounter Visit Diagnoses Not on filedocumented in this encounter Care Teams Supervisor Taping Relationship Specialty Start Date End Date Jesus Martins MD [facility] [place] [address] PCP - General Neurological Surgery 10/21/24 documented as of this encounter
--- OUTSIDE RECORDS SUMMARY | 2024-12-26 13:35 | XMS_ITS | Clinical Summary ---
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 ADJUNCT TRAINER) Sodium 139 135 - 145 mmol/L Potassium, pl 3.7 3.3 - 4.9 mmol/L [facility] Chloride 105 97 - 110 mmol/L [facility] CO2 25 22 - 32 mmol/L [facility] Anion gap 9 2 - 15 mmol/L [facility] BUN 12 6 - 25 mg/dL [facility] Creatinine 1.04 0.80 - 1.30 mg/dL [facility] Glucose 104 70 - 199 mg/dL [facility] Comment: Interpretive Data Fasting glucose >/= 126 [...] 2022. Calcium 9.8 8.5 - 10.3 mg/dL [facility] Bilirubin, total 0.5 0.1 - 1.2 mg/dL [facility] Protein, pl 6.0(L) 6.5 - 8.5 g/dL [facility] Albumin 3.8 3.5 - 5.0 g/dL [facility] Alk phos 50 40 - 130 Units/L [facility] ALT 23 7 - 55 Units/L [facility] AST 27 10 - 50 Units/L [facility] Blood 11/24/2024 4:45 AM ADJUNCT TRAINER 11/24/2024 4:48 AM ADJUNCT TRAINER Melonie Concepcion MD LAB BLOOD ORDERABLES Final R esult Performing Organization Address City/[facility]/ZIP Co de Phone Number LEDY [address] [facility] Department [place] [address] * Influenza A/B, RSV, and COVID-19 PCR Nasopharyngeal (11/23/2024 10:19 PM ADJUNCT TRAINER) [facility] COVID-19 RNA Negative Negative Influenza A RNA Negative Negative [facility] Influenza B RNA Negative Negative [facility] RSV RNA Negative Negative [facility] Comment: Interpretive data: Testing performed by [facility]. This test is performed using the H5 Xpert Xpress CoV-2/Flu/RSV plus assay. This is a multiplex, real-time reverse transcriptase PCR assay intended for the qualitative detection of nucleic acid from SARS-CoV-2, influenza A, influenza B, and respiratory syncytial virus. This assay has been cleared by the [place] Food and Drug administration. The performance characteristics have been verified by the [facility]. Results must be considered in the clinical context, and a negative result does not rule out infection. Interpretive Data last revised 2023 Nasopharyngeal 11/23/2024 10 :19 PM ADJUNCT TRAINER 11/23/2024 10:23 PM ADJUNCT TRAINER Narrative [facility] - 11/23/2024 11:03 PM ADJUNCT TRAINER Is the Patient experiencing symptoms consistent with COVID?->No Melonie Concepcion MD LAB MICROBIOLOGY - GENERAL O RDERABLES Final Result [facility] [address] [facility] [place] [address] * Troponin T high-sensitivity 2-hour (11/23/2024 5:18 PM ADJUNCT TRAINER) [facility] Trop T hs <6 <=22 ng/L Comment: Interpretive Data For further hscTnT resources including the diagnostic algorithm and an aid in interpretation, copy and paste this link: https://nrl.testcatalog.org/show/hsTrop Current Interpretive Data last revised 2020. Trop T hs delta -1 ng/L [facility] Trop T hs interp Insignificant [facility] Blood 11/23/2024 5:18 PM ADJUNCT TRAINER 11/23/2024 5:23 PM ADJUNCT TRAINER us Sofia Smith MD LAB BLOOD ORDERABLES F inal Result [facility] [address] [facility] Department [place] [address] * CT Abdomen Pelvis W Contrast (11/23/2024 4:42 PM ADJUNCT TRAINER) Anatomical Region Laterality Modality Body N/A Computed Tomogra phy 11/23/2024 5:57 PM ADJUNCT TRAINER Narrative 11/23/2024 6:05 PM ADJUNCT TRAINER EXAM DESCRIPTION: CT ABDOMEN PELVIS W CONTRAST [...] - Electronically signed by Dirk Roblero M.D. KH T: Report ID: [id number] Reading Location: [place] [address] Procedure Note Dirk Roblero MD - 11/23/2024 [...] by Dirk Roblero M.D. T: Report ID: [id number] Reading Location: [place] [address] PROCEDURES Final Re sult * ECG 12 lead (11/23/2024 3:33 PM ADJUNCT TRAINER) Ventricular Rate EKG/Min 62 BPM [facility] Atrial Rate 62 BPM [facility] QRS-Interval (MSEC) 74 ms [facility] QT-Interval (MSEC) 388 ms [facility] QTc 393 ms [facility] R [place] 22 degrees [facility] T [place] 44 degrees [facility] Diagnosis Sinus rhythm Otherwise normal ECG Confirmed by CRESCENCIO COPE M.D. ([id number]) on 11/26/2024 10:24:14 PM [facility] 11/23/2024 3:33 PM ADJUNCT TRAINER 11/26/2024 10:24 PM ADJUNCT TRAINER Melonie Concepcion MD ECG ORDERABLES Final Result [facility] * Urinalysis reflex to microscopic and culture Urine (11/23/2024 3:32 PM ADJUNCT TRAINER) Color, ur Yellow Yellow Clarity, ur Clear Clear [facility] Specific gravity, ur 1.020 1.003 - 1.030 [facility] pH, urine 5.5 [facility] Comment: Interpretive Data U rine pH is affected by diet, medications, systemic acid-base disturbances, and renal tubular function. pH may affect urinary stone formation. For example, urine pH below 6.0 may help reduce the tendency for calcium phosphate stones and pH greater than 6.0 may reduce the tendency for uric acid stone formation. Source: [facility] Current Interpretive Data was last revised on 2017 Protein, ur ql Negative Negative [facility] Glucose, ur ql Negative Negative [facility] Ketones, ur Negative Negative [facility] Bilirubin, ur Negative Negative [facility] Blood, ur Negative Negative [facility] Urobilinogen, ur <2.0 <2.0 mg/dL [facility] Nitrite, ur Negative Negative [facility] Leukocyte esterase, ur Negative Negative [facility] UA reflex comment Reflex conditions for microscopic UA and culture not met. [facility] Urine 11/23/2024 3:32 PM ADJUNCT TRAINER 11/23/2024 3:34 PM ADJUNCT TRAINER us Melonie Concepcion MD LAB MICROBIOLOGY - GENERAL O RDERABLES Final Result Performing Organization Address [facility] Co de Phone Number [facility] [address] Department [place] [address] * Troponin T high-sensitivity series (baseline, 2hr, 4hr, 6hr) (11/23/2024 3:31 PM ADJUNCT TRAINER) Trop T hs 7 <=22 ng/L Comment: Interpretive Data For further hscTnT resources including the diagnostic algorithm and an aid in interpretation, copy and paste this link: https://nrl.testcatalog.org/show/hsTrop Current Interpretive Data last revised 2020. Blood 11/23/2024 3:31 PM ADJUNCT TRAINER 11/23/2024 3:34 PM ADJUNCT TRAINER us Melonie Concepcion MD LAB BLOOD ORDERABLES Final R esult Performing Organization Address City/[facility] Co de Phone Number LEDY [address] Department [place] [address] * eGFR (11/23/2024 3:31 PM ADJUNCT TRAINER) [facility] eGFR 73 >=60 mL/min/1. 73 m2 Comment: [...] last reviewed 2021. Blood 11/23/2024 3:31 PM ADJUNCT TRAINER 11/23/2024 3:34 PM ADJUNCT TRAINER Melonie Concepcion MD LAB BLOOD ORDERABLES Final R esult [facility] Department [place] [address] * (ABNORMAL) Differential, auto (11/23/2024 3:31 PM ADJUNCT TRAINER) [facility] Neutrophil abs 7.3(H) 1.5 - 6.5 K/cumm Imm gran abs 0.0 0.0 - 0.1 K/cumm [facility] Lymphocyte abs 1.4 0.8 - 3.3 K/cumm [facility] Monocyte abs 0.5 0.2 - 0.8 K/cumm [facility] Eosinophil abs 0.1 0.0 - 0.5 K/cumm [facility] Basophil abs 0.0 0.0 - 0.1 K/cumm [facility] Neutrophil pct 78.3 % [facility] Comment: Interpretive Data Percent cell count reference ranges are not reported, since discordance with absolute values may lead to misinterpretation of CBC data. Current Interpretive Data was last revised on 2018. Imm gran pct 0.4 % [facility] Comment: Interpretive Data Percent cell count reference ranges are not reported, since discordance with absolute values may lead to misinterpretation of CBC data. Current Interpretive Data was last revised on 2018. Lymphocyte pct 14.8 % [facility] Comment: Interpretive Data Percent cell count reference ranges are not reported, since discordance with absolute values may lead to misinterpretation of CBC data. Current Interpretive Data was last revised on 2018. Monocyte pct 5.0 % [facility] Comment: Interpretive Data Percent cell count reference ranges are not reported, since discordance with absolute values may lead to misinterpretation of CBC data. Current Interpretive Data was last revised on 2018. Eosinophil pct 1.2 % [facility] Comment: Interpretive Data Percent cell count reference ranges are not reported, since discordance with absolute values may lead to misinterpretation of CBC data. Current Interpretive Data was last revised on 2018. Basophil pct 0.3 % [facility] Comment: Interpretive Data Percent cell count reference ranges are not reported, since discordance with absolute values may lead to misinterpretation of CBC data. Current Interpretive Data was last revised on 2018. Blood 11/23/2024 3:31 PM ADJUNCT TRAINER 11/23/2024 3:34 PM ADJUNCT TRAINER Melonie Concepcion MD LAB BLOOD ORDERABLES Final R esult [facility] [address] [facility] Department [place] [address] * CBC with auto differential (11/23/2024 3:31 PM ADJUNCT TRAINER) WBC 9.3 3.8 - 9.9 K/cumm Hgb 14.9 13.0 - 17.5 g/dL [facility] Hct 44.7 38.9 - 50.3 % [facility] Plt 240 150 - 400 K/cumm [facility] MPV 9.6 9.1 - 12.3 fL [facility] RBC 4.93 4.30 - 5.80 M/cumm [facility] MCV 90.7 81.3 - 96.4 fL [facility] MCH 30.2 27.1 - 33.3 pg [facility] MCHC 33.3 32.3 - 35.7 g/dL [facility] RDW CV 12.8 11.1 - 14.9 % [facility] RDW SD 42.0 35.7 - 48.1 fL [facility] NRBC abs 0.00 0.00 - 0.01 K/cumm [facility] Blood Venous blood specimen / Unknown 11/23/2024 3:31 PM ADJUNCT TRAINER 11/23/2024 3:34 PM ADJUNCT TRAINER us Melonie Concepcion MD LAB BLOOD ORDERABLES Final R esult Performing Organization Address [facility] Co de Phone Number [address] [place] [address] * Lipase (11/23/2024 3:31 PM ADJUNCT TRAINER) Pathologist [facility] Lipase 20 10 - 99 Units/L Blood Venous blood specimen / Unknown 11/23/2024 3:31 PM ADJUNCT TRAINER 11/23/2024 3:34 PM ADJUNCT TRAINER Melonie Concepcion MD LAB BLOOD ORDERABLES Final R [facility] Performing Organization Address [facility] de Phone Number [address] [place] [address] * Comprehensive metabolic panel (11/23/2024 3:31 PM ADJUNCT TRAINER) Pathologist [facility] Sodium 136 135 - 145 mmol/L Potassium, pl 4.3 3.3 - 4.9 mmol/L [facility] Chloride 101 97 - 110 mmol/L [facility] CO2 25 22 - 32 mmol/L [facility] Anion gap 10 2 - 15 mmol/L [facility] BUN 10 6 - 25 mg/dL [facility] Creatinine 1.09 0.80 - 1.30 mg/dL [facility] Glucose 99 70 - 199 mg/dL [facility] Comment: Interpretive Data Fasting glucose >/= 126 [...] 2022. Calcium 10.1 8.5 - 10.3 mg/dL [facility] Bilirubin, total 0.6 0.1 - 1.2 mg/dL [facility] Protein, pl 7.5 6.5 - 8.5 g/dL [facility] Albumin 4.7 3.5 - 5.0 g/dL [facility] Alk phos 62 40 - 130 Units/L [facility] ALT 35 7 - 55 Units/L [facility] AST 32 10 - 50 Units/L [facility] Blood 11/23/2024 3:31 PM ADJUNCT TRAINER 11/23/2024 3:34 PM ADJUNCT TRAINER Melonie Concepcion MD LAB BLOOD ORDERABLES Final R esult [place] [id number] [facility] Department [place] [address] * TRANSESOPHAGEAL ECHO (ZHENG) W DOPPLER/CF WO CONTRAST (11/06/2024 11:50 AM ADJUNCT TRAINER) Anatomical Region Laterality Modality Ultrasound 11/06/2024 11:2 8 AM ADJUNCT TRAINER Narrative 11/06/2024 11:58 AM ADJUNCT TRAINER Transesophageal Echocardiogram + + :Name: SHANA CROSS Study Date: 11/06/2024 Status: MHB : : Patient Location: [facility] Height: 71 in : : Weight: 225 lb: :: 1955 Gender: Male BSA: 2.2 m2 : :Reason For Study: Stroke/TIA, assess for intracardiac shunt : :Ordering Physician: JEANNE, : :SULEMAN : :Referring Physician: DOROTHY, : :VALERIO READ : :Performed By: Angela : :SEMAJ Landin : + + Procedure Zheng probe [...] Silvestre Botello MD 11/06/2024 12:00 PM Procedure Silvestre Perez MD - 11/06/2024 Transesophageal Echocardiogram + + :Name: SHANA CROSS Study Date: 11/06/2024 Status:MHB : : Patient Location: [facility] CV PRRCV^^^MHB Height: 71in : : Weight:225 lb: :: [...] MD 11/06/2024 12:00 PM us Suleman Moreno NP CV ECHO PROCEDURES Edited * eGFR (11/06/2024 9:50 AM ADJUNCT TRAINER) Pathologist [facility] eGFR 68 >=60 mL/min/1. 73 m2 Comment: [...] last reviewed 2021. Blood 11/06/2024 9:50 AM ADJUNCT TRAINER 11/06/2024 9:54 AM ADJUNCT TRAINER us Silvestre Botello MD LAB BLOOD ORDERABLES Final Result [facility] [address] [facility] Department [place] [address] * Differential, auto (11/06/2024 9:50 AM ADJUNCT TRAINER) Pathologist [facility] Neutrophil abs 3.3 1.5 - 6.5 K/cumm Imm gran abs 0.0 0.0 - 0.1 K/cumm [facility] Lymphocyte abs 1.6 0.8 - 3.3 K/cumm [facility] Monocyte abs 0.4 0.2 - 0.8 K/cumm [facility] Eosinophil abs 0.1 0.0 - 0.5 K/cumm [facility] Basophil abs 0.0 0.0 - 0.1 K/cumm [facility] Neutrophil pct 60.7 % [facility] Comment: Interpretive Data Percent cell count reference ranges are not reported, since discordance with absolute values may lead to misinterpretation of CBC data. Current Interpretive Data was last revised on 2018. Imm gran pct 0.4 % [facility] Comment: Interpretive Data Percent cell count reference ranges are not reported, since discordance with absolute values may lead to misinterpretation of CBC data. Current Interpretive Data was last revised on 2018. Lymphocyte pct 28.9 % [facility] Comment: Interpretive Data Percent cell count reference ranges are not reported, since discordance with absolute values may lead to misinterpretation of CBC data. Current Interpretive Data was last revised on 2018. Monocyte pct 7.5 % [facility] Comment: Interpretive Data Percent cell count reference ranges are not reported, since discordance with absolute values may lead to misinterpretation of CBC data. Current Interpretive Data was last revised on 2018. Eosinophil pct 2.0 % [facility] Comment: Interpretive Data Percent cell count reference ranges are not reported, since discordance with absolute values may lead to misinterpretation of CBC data. Current Interpretive Data was last revised on 2018. Basophil pct 0.5 % [facility] Comment: Interpretive Data Percent cell count reference ranges are not reported, since discordance with absolute values may lead to misinterpretation of CBC data. Current Interpretive Data was last revised on 2018. Blood 11/06/2024 9:50 AM ADJUNCT TRAINER 11/06/2024 9:54 AM ADJUNCT TRAINER us Silvestre Botello MD LAB BLOOD ORDERABLES Final Result [facility] [address] [facility] Department [place] [address] * CBC with auto differential (11/06/2024 9:50 AM ADJUNCT TRAINER) WBC 5.5 3.8 - 9.9 K/cumm Hgb 14.0 13.0 - 17.5 g/dL [facility] Hct 41.1 38.9 - 50.3 % [facility] Plt 226 150 - 400 K/cumm [facility] MPV 9.6 9.1 - 12.3 fL [facility] RBC 4.58 4.30 - 5.80 M/cumm [facility] MCV 89.7 81.3 - 96.4 fL [facility] MCH 30.6 27.1 - 33.3 pg [facility] MCHC 34.1 32.3 - 35.7 g/dL [facility] RDW CV 12.8 11.1 - 14.9 % [facility] RDW SD 41.7 35.7 - 48.1 fL [facility] NRBC abs 0.00 0.00 - 0.01 K/cumm [facility] Blood 11/06/2024 9:50 AM ADJUNCT TRAINER 11/06/2024 9:54 AM ADJUNCT TRAINER Narrative [facility] - 11/06/2024 10:01 AM ADJUNCT TRAINER If most recent labs were drawn prior to 4 AM, draw only prior to initiating procedure. Silvestre Botello MD LAB BLOOD ORDERABLES Final Result Performing Organization Address [facility] Co de Phone Number [address] [employer] [place] [address] * aPTT (11/06/2024 9:50 AM ADJUNCT TRAINER) aPTT 28 22 - 37 sec Comment: Interpretive data aPTT test has not been evaluated for monitoring heparin therapy. The anti-Xa is the preferred test. Current interpretive data was last revised on 2019. Blood 11/06/2024 9:50 AM ADJUNCT TRAINER 11/06/2024 9:54 AM ADJUNCT TRAINER Silvestre Botello MD LAB BLOOD ORDERABLES Final Result Performing Organization Address City/[facility] de Phone Number [address] [place] [address] * Protime-INR (11/06/2024 9:50 AM ADJUNCT TRAINER) PT 14.0 12.0 - 14.6 sec INR 1.1 0.9 - 1.2 [facility] Comment: Ref Range High Interpretive data Oral anticoagulant therapeutic ranges: Venous thromboembolism prophylaxis or treatment: 2.0-3.0 CARDIOLOGY Standard range: 2.0-3.0 High-intensity range: 2.5-3.5 Refer to indication-specific guidelines for appropriate target ranges for prosthetic heart valve replacement. Current interpretive data was last revised on 2019. Blood 11/06/2024 9:50 AM ADJUNCT TRAINER 11/06/2024 9:54 AM ADJUNCT TRAINER Silvestre Botello MD LAB BLOOD ORDERABLES Final Result Performing Organization Address [facility] de Phone Number [address] [place] [address] * Basic metabolic panel (11/06/2024 9:50 AM ADJUNCT TRAINER) Pathologist [facility] Sodium 138 135 - 145 mmol/L Potassium, pl 4.6 3.3 - 4.9 mmol/L [facility] Chloride 104 97 - 110 mmol/L [facility] CO2 26 22 - 32 mmol/L [facility] Anion gap 8 2 - 15 mmol/L [facility] BUN 13 6 - 25 mg/dL [facility] Creatinine 1.16 0.80 - 1.30 mg/dL [facility] Glucose 100 70 - 199 mg/dL [facility] Comment: Interpretive Data Fasting glucose >/= 126 [...] 2022. Calcium 10.1 8.5 - 10.3 mg/dL [facility] Blood 11/06/2024 9:50 AM ADJUNCT TRAINER 11/06/2024 9:54 AM ADJUNCT TRAINER Silvestre Botello MD LAB BLOOD ORDERABLES Final Result Performing Organization Address 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 Presents today for lightheadedness and near syncope. Non focal exam., concern for ICH Pt reports having a blood clot to my eye and now my blood pressure is high . Pt states being dx with blood clot to L eye at [facility] after being transferred from [facility] and having a loop recorder placed last [...] Dirk Whaley M.D. KT T: Report ID: [id number] Reading Location: [id number] Procedure Note Dirk Whaley MD - 11/01/2024 EXAM DESCRIPTION: CT HEAD WO CONTRAST REASON FOR STUDY: recent left central retinal artery occlusion 10 daysago. Presents today for lightheadedness and near syncope. Non focal exam.,concern for ICH Pt reports having a blood clot to my eye and now my blood pressure ishigh . Pt states being dx with blood clot to L eye at [facility] after beingtransferred from [facility] and having a loop recorder placed last [...] Dirk Whaley M.D. KT T: Report ID: [id number] Reading Location: [id number] Siva Jhaveri MD IMG CT PROCEDURES Final Re sult * (ABNORMAL) Urinalysis reflex to microscopic and culture Urine (11/01/2024 6:13 PM ADJUNCT TRAINER) Color, ur Yellow Yellow Clarity, ur Cloudy(A) Clear [facility] Specific gravity, ur 1.025 1.003 - 1.030 [facility] pH, urine 5.5 [facility] Comment: Interpretive Data U rine pH is affected by diet, medications, systemic acid-base disturbances, and renal tubular function. pH may affect urinary stone formation. For example, urine pH below 6.0 may help reduce the tendency for calcium phosphate stones and pH greater than 6.0 may reduce the tendency for uric acid stone formation. Source: [facility] [place] Current Interpretive Data was last revised on 2017 Protein, ur ql Negative Negative [facility] Glucose, ur ql Negative Negative [facility] Ketones, ur Negative Negative [facility] Bilirubin, ur Negative Negative [facility] Blood, ur Negative Negative [facility] Urobilinogen, ur <2.0 <2.0 mg/dL [facility] Nitrite, ur Negative Negative [facility] Leukocyte esterase, ur Negative Negative [facility] UA reflex comment Reflex conditions for microscopic UA and culture not met. [facility] Urine 11/01/2024 6:13 PM ADJUNCT TRAINER 11/01/2024 6:16 PM ADJUNCT TRAINER us Siva Jhaveri MD LAB MICROBIOLOGY - GENERAL ORDERABLES Final Result [facility] [address] [facility] Department [place] [address] * (ABNORMAL) Drugs of Abuse Screen, Urine without Confirmation (11/01/2024 6:13 PM ADJUNCT TRAINER) Amphetamine, ur Not Detected CutOff 500ng/mL Comment: Interpretive Data - Amphetamines: Samples containing greater than 500 ng/mL d-methamphetamine or other cross-reacting amphetamine compounds are reported as positive. Amphetamine immunoassays are subject to significant false positive rates due to cross-reactivity of non-amphetamine drugs. Confirmatory testing required for definitive results. Current Interpretive Data was last reviewed 2023. Barbiturates, ur Not Detected CutOff 200ng/mL [facility] Comment: Interpretive Data - Barbiturates: Samples containing greater than 200 ng/mL secobarbital or other cross-reacting barbiturate compounds are reported as positive. False positive and false negative results are possible. Confirmatory testing required for definitive results. Current Interpretive Data was last reviewed 2023. Benzodiazepines, ur Screen Positive, presumptive (A) CutOff 100ng/mL [facility] Comment: Interpretive Data - Benzodiazepines: Samples containing greater than 100 ng/mL nordiazepam or other cross-reacting compounds are reported as positive. False positive and false negative results are possible. Confirmatory testing required for definitive results. Current Interpretive Data was last reviewed 2023. Cannabinoids, ur Not Detected CutOff 50 ng/mL [facility] Comment: Interpretive Data - Cannabinoids: Samples containing greater than 50 ng/mL delta-9 THC -COOH or other cross- reacting compounds are reported as positive. False positive and false negative results are possible. Confirmatory testing required for definitive results. Current Interpretive Data was last reviewed 2023. Cocaine, ur Not Detected CutOff 150ng/mL [facility] Comment: Interpretive Data - Cocaine: Samples containing greater than 150 ng/mL benzoylecgonine or other cross- reacting compounds are reported as positive. False positive and false negative results are possible. Confirmatory testing required for definitive results. Current Interpretive Data was last reviewed 2023. Fentanyl, Ur Not Detected CutOff 5 ng/mL [facility] Comment: Interpretive Data - Fentanyl: Samples containing [...] revised on 2017. Urine 11/01/2024 6:13 PM ADJUNCT TRAINER 11/01/2024 6:16 PM ADJUNCT TRAINER Narrative [facility] - 11/01/2024 6:42 PM ADJUNCT TRAINER Drug of Abuse screening is performed by immunoassay for medical purposes only. This is not to be used for Pain Management purposes. Siva Jhaveri MD LAB URINE ORDERABLES Final Result Performing Organization Address [facility] de Phone Number [facility] [place] [address] * Influenza A/B, RSV, and COVID-19 PCR Nasopharyngeal (11/01/2024 6:12 PM ADJUNCT TRAINER) [facility] COVID-19 RNA Negative Negative Influenza A RNA Negative Negative [facility] Influenza B RNA Negative Negative [facility] RSV RNA Negative Negative [facility] Comment: Interpretive data: Testing performed by [facility]. This test is performed using the H5 Xpert Xpress CoV-2/Flu/RSV plus assay. This is a multiplex, real-time reverse transcriptase PCR assay intended for the qualitative detection of nucleic acid from SARS-CoV-2, influenza A, influenza B, and respiratory syncytial virus. This assay has been cleared by the [place] Food and Drug administration. The performance characteristics have been verified by the [facility]. Results must be considered in the clinical context, and a negative result does not rule out infection. Interpretive Data last revised 2023 Nasopharyngeal 11/01/2024 6: 12 PM ADJUNCT TRAINER 11/01/2024 6:16 PM ADJUNCT TRAINER Narrative [facility] - 11/01/2024 6:54 PM ADJUNCT TRAINER Is the Patient experiencing symptoms consistent with COVID?->Unknown Siva Jhaveri MD LAB MICROBIOLOGY - GENERAL ORDERABLES Final Result Performing Organization Address [facility] de Phone Number LEDY [address] [facility] [place] [address] * Troponin T high-sensitivity 2-hour (11/01/2024 4:38 PM ADJUNCT TRAINER) [facility] Trop T hs 12 <=22 ng/L Comment: Interpretive Data For further hscTnT resources including the diagnostic algorithm and an aid in interpretation, copy and paste this link: https://nrl.testcatalog.org/show/hsTrop Current Interpretive Data last revised 2020. Trop T hs delta 3 ng/L [facility] Trop T hs interp Insignificant [facility] Blood 11/01/2024 4:38 PM ADJUNCT TRAINER 11/01/2024 4:43 PM ADJUNCT TRAINER Anna BARRERA LAB BLOOD ORDERABLES Final Result Performing Organization Address City/[facility]/ZIP Co de Phone Number [address] [address] * Troponin T high-sensitivity series (baseline, 2hr, 4hr, 6hr) (11/01/2024 2:21 PM ADJUNCT TRAINER) Pathologist [facility] Trop T hs 9 <=22 ng/L Comment: Interpretive Data For further hscTnT resources including the diagnostic algorithm and an aid in interpretation, copy and paste this link: https://nrl.testcatalog.org/show/hsTrop Current Interpretive Data last revised 2020. Blood 11/01/2024 2:21 PM ADJUNCT TRAINER 11/01/2024 2:30 PM ADJUNCT TRAINER us Siva Jhaveri MD LAB BLOOD ORDERABLES Final Result Performing Organization Address [facility] Co de Phone Number [address] [address] * (ABNORMAL) eGFR (11/01/2024 2:21 PM ADJUNCT TRAINER) eGFR 58(L) >=60 mL/min/1. 73 m2 Comment: [...] last reviewed 2021. Blood 11/01/2024 2:21 PM ADJUNCT TRAINER 11/01/2024 2:30 PM ADJUNCT TRAINER us Siva Jhaveri MD LAB BLOOD ORDERABLES Final Result [place] [id number] [facility] Department [place] [address] * Differential, auto (11/01/2024 2:21 PM ADJUNCT TRAINER) Pathologist [facility] Neutrophil abs 3.8 1.5 - 6.5 K/cumm Imm gran abs 0.0 0.0 - 0.1 K/cumm [facility] Lymphocyte abs 1.8 0.8 - 3.3 K/cumm [facility] Monocyte abs 0.4 0.2 - 0.8 K/cumm [facility] Eosinophil abs 0.2 0.0 - 0.5 K/cumm [facility] Basophil abs 0.0 0.0 - 0.1 K/cumm [facility] Neutrophil pct 61.5 % [facility] Comment: Interpretive Data Percent cell count reference ranges are not reported, since discordance with absolute values may lead to misinterpretation of CBC data. Current Interpretive Data was last revised on 2018. Imm gran pct 0.7 % [facility] Comment: Interpretive Data Percent cell count reference ranges are not reported, since discordance with absolute values may lead to misinterpretation of CBC data. Current Interpretive Data was last revised on 2018. Lymphocyte pct 28.5 % [facility] Comment: Interpretive Data Percent cell count reference ranges are not reported, since discordance with absolute values may lead to misinterpretation of CBC data. Current Interpretive Data was last revised on 2018. Monocyte pct 6.2 % [facility] Comment: Interpretive Data Percent cell count reference ranges are not reported, since discordance with absolute values may lead to misinterpretation of CBC data. Current Interpretive Data was last revised on 2018. Eosinophil pct 2.6 % [facility] Comment: Interpretive Data Percent cell count reference ranges are not reported, since discordance with absolute values may lead to misinterpretation of CBC data. Current Interpretive Data was last revised on 2018. Basophil pct 0.5 % [facility] Comment: Interpretive Data Percent cell count reference ranges are not reported, since discordance with absolute values may lead to misinterpretation of CBC data. Current Interpretive Data was last revised on 2018. Blood 11/01/2024 2:21 PM ADJUNCT TRAINER 11/01/2024 2:30 PM ADJUNCT TRAINER Siva Jhaveri MD LAB BLOOD ORDERABLES Final Result Performing Organization Address [facility]/State/[facility] Co de Phone Number [facility] [address] [facility] Department [place] [address] * CBC with auto differential (11/01/2024 2:21 PM ADJUNCT TRAINER) WBC 6.1 3.8 - 9.9 K/cumm Hgb 14.3 13.0 - 17.5 g/dL [facility] Hct 42.4 38.9 - 50.3 % [facility] Plt 243 150 - 400 K/cumm [facility] MPV 9.7 9.1 - 12.3 fL [facility] RBC 4.69 4.30 - 5.80 M/cumm [facility] MCV 90.4 81.3 - 96.4 fL [facility] MCH 30.5 27.1 - 33.3 pg [facility] MCHC 33.7 32.3 - 35.7 g/dL [facility] RDW CV 12.8 11.1 - 14.9 % [facility] RDW SD 41.6 35.7 - 48.1 fL [facility] NRBC abs 0.00 0.00 - 0.01 K/cumm [facility] Blood Venous blood specimen / Unknown 11/01/2024 2:21 PM ADJUNCT TRAINER 11/01/2024 2:30 PM ADJUNCT TRAINER Siva Jhaveri MD LAB BLOOD ORDERABLES Final Result Performing Organization Address [facility] Co de Phone Number LEDY [address] [address] * Phosphorus (11/01/2024 2:21 PM ADJUNCT TRAINER) Pathologist [facility] Phosphorus, pl 3.1 2.3 - 4.5 mg/dL Blood 11/01/2024 2:21 PM ADJUNCT TRAINER 11/01/2024 2:30 PM ADJUNCT TRAINER Siva Jhaveri MD LAB BLOOD ORDERABLES Final Result Performing Organization Address [facility] de Phone Number LEDY [address] [address] * Magnesium (11/01/2024 2:21 PM ADJUNCT TRAINER) [facility] Magnesium 1.6 1.4 - 2.5 mg/dL Blood 11/01/2024 2:21 PM ADJUNCT TRAINER 11/01/2024 2:30 PM ADJUNCT TRAINER Siva Jhaveri MD LAB BLOOD ORDERABLES Final Result Performing Organization Address [facility] Phone Number LEDY [address] [address] * Ethanol (11/01/2024 2:21 PM ADJUNCT TRAINER) [facility] Ethanol <10 <=10 mg/dL Comment: Interpretive Data Legal limit of intoxication > or = 80 mg/dL Levels > or = 400 mg/dL are potentially TOXIC. Current interpretive data was last revised on 2018. Blood 11/01/2024 2:21 PM ADJUNCT TRAINER 11/01/2024 2:30 PM ADJUNCT TRAINER Siva Jhaveri MD LAB BLOOD ORDERABLES Final Result Performing Organization Address [facility] Co de Phone Number DHARA[address] [address] * (ABNORMAL) Comprehensive metabolic panel (11/01/2024 2:21 PM ADJUNCT TRAINER) Sodium 139 135 - 145 mmol/L Potassium, pl 4.1 3.3 - 4.9 mmol/L [facility] Chloride 104 97 - 110 mmol/L [facility] CO2 25 22 - 32 mmol/L [facility] Anion gap 10 2 - 15 mmol/L [facility] BUN 17 6 - 25 mg/dL [facility] Creatinine 1.32(H) 0.80 - 1.30 mg/dL [facility] Glucose 118 70 - 199 mg/dL [facility] Comment: Interpretive Data Fasting glucose >/= 126 [...] 2022. Calcium 10.2 8.5 - 10.3 mg/dL [facility] Bilirubin, total 0.4 0.1 - 1.2 mg/dL [facility] Protein, pl 7.1 6.5 - 8.5 g/dL [facility] Albumin 4.4 3.5 - 5.0 g/dL [facility] Alk phos 63 40 - 130 Units/L [facility] ALT 30 7 - 55 Units/L [facility] AST 31 10 - 50 Units/L [facility] Blood 11/01/2024 2:21 PM ADJUNCT TRAINER 11/01/2024 2:30 PM ADJUNCT TRAINER us Siva Jhaveri MD LAB BLOOD ORDERABLES Final Result [facility] [address] [facility] Department [place] [address] * XR Chest 1 Vw Portable (if patient condition/safety warrant portable) (11/01/2024 2:13 PM ADJUNCT TRAINER) Anatomical Region Laterality Modality Body, Chest N/A Computed Radiogr aphy 11/01/2024 2:19 PM ADJUNCT TRAINER Narrative 11/01/2024 2:19 PM ADJUNCT TRAINER EXAM DESCRIPTION: XR CHEST 1 VIEW REASON [...] by Joey Polanco M.D. T: Report ID: [id number] Reading Location: [id number] Procedure Note Joey Polanco Jr., MD - [...] by Joey Polanco M.D. T: Report ID: [id number] Reading Location: [id number] Siva Jhaveri MD IMG XR PROCEDURES Final Re sult * ECG 12 lead (11/01/2024 2:05 PM ADJUNCT TRAINER) Ventricular Rate EKG/Min 62 BPM [facility] Atrial Rate 62 BPM [facility] [place]-Interval (MSEC) 154 ms [facility] QRS-Interval (MSEC) 86 ms [facility] QT-Interval (MSEC) 390 ms [facility] QTc 395 ms [facility] P [place] 4 degrees [facility] R [place] 29 degrees [facility] T [place] 63 degrees [facility] Diagnosis Normal sinus rhythm Normal ECG When compared with ECG of 28-OCT-2024 06:56, No significant change was found Confirmed by SILVESTRE BOTELLO M.D. ([id number]) on 11/01/2024 9:52:42 PM [facility] 11/01/2024 2:05 PM ADJUNCT TRAINER 11/01/2024 9:52 PM ADJUNCT TRAINER Siva Jhaveri MD ECG ORDERABLES Final Resu lt [facility] * LEFT HEART CATHETERIZATION WITH CORONARY ANGIOGRAPHY AND WITH AND WITHOUT LEFT VENTRICULOGRAM (10/28/2024 9:34 AM ADJUNCT TRAINER) Anatomical Region Laterality Modality X-Ray Angiograph y Narrative 10/28/2024 10:11 AM ADJUNCT TRAINER Patient Id: Shana Cross is a 69 y.o. male. MR#: [id number] Date of the procedure: 10/28/2024 Procedure: Left [...] also had internal loop recorder placement at [facility]. I discussed the coronary CT findings with [...] and draped in the usual fashion. Six [place] sheath placed in the right femoral artery by using Seldinger technique. Left heart catheterization and [place] left ventricular cineangiogram performed by using 6 [place] pigtail catheter. Left and right coronary angiography performed using 6 [place] JL4 and 6 JR4 catheters. There were no complications. The sheath removed and hemostasis secured with manual pressure Anesthesia: Local Moderate sedation: Patient received 1 mg of Versed and 25 mcg of fentanyl by the nurse for conscious sedation. Patient vital signs monitored under my supervision in the hatchery laborer during and after the procedure for at least the 30 minutes. Please see the hatchery laborer log report for details Hemodynamics: Procedure performed [...] MD This report was transcribed using the OrSense voice recognition system without human cable technician. In an effort to expedite patient care, this report has not been adjusted for typographical, grammatical, and syntax by a trained medical economics consultant. Despite proof reading there may be errors. Please contact me if you have any questions. Procedure Note Silvestre Botello MD - 10/28/2024 Patient Id: Shana Cross is a 69 y.o. male. MR#: [id number] Date of the procedure: 10/28/2024 Procedure: Left [...] Patient also hadinternal loop recorder placement at [facility]. Idiscussed the coronary CT findings with him. [...] prepped and draped in the usual fashion.Six [place] sheath placed in the right femoral artery by using Seldingertechnique. Left heart catheterization and [place] left ventricularcineangiogram performed by using 6 [place] pigtail catheter. Left andright coronary angiography performed using 6 [place] JL4 and 6 AA0xedeydeve. There were no complications. The sheath removed andhemostasis secured with manual pressure Anesthesia: Local Moderate sedation: Patient received 1 mg of Versed and 25 mcg of fentanylby the nurse for conscious sedation. Patient vital signs monitored undermy supervision in the hatchery laborer during and after the procedure for at leastthe 30 minutes. Please see the hatchery laborer log report for details Hemodynamics: Procedure performed [...] wallmotion systolic function visually estimated ejection fraction [id number] Coronary circulation: Coronary circulation is right dominant [...] MD This report was transcribed using the OrSense voicerecognition system without human cable technician. In an effort toexpedite patient care, this report has not been adjusted fortypographical, grammatical, and syntax by a trained medicaltranscriptionist. Despite proof reading there may be errors. Pleasecontact me if you have any questions. Silvestre Botello MD CV CARDIAC CATH PROCEDURES Final Result * ABO / Rh Confirmation Testing (10/28/2024 7:04 AM ADJUNCT TRAINER) ABO/Rh Confirmation O Positive B Blood 10/28/2024 7:04 AM ADJUNCT TRAINER 10/28/2024 7:07 AM ADJUNCT TRAINER Silvestre Botello MD LAB BLOOD ORDERABLES Final Result [facility] [address] [facility] Department [place] [address] [facility] * ECG 12 lead (10/28/2024 6:56 AM ADJUNCT TRAINER) Ventricular Rate EKG/Min 53 BPM [facility] Atrial Rate 53 BPM [facility] [place]-Interval (MSEC) 192 ms [facility] QRS-Interval (MSEC) 86 ms [facility] QT-Interval (MSEC) 408 ms [facility] QTc 382 ms [facility] P [place] -9 degrees [facility] R [place] 18 degrees [facility] T [place] 56 degrees [facility] Diagnosis Sinus bradycardia Otherwise normal ECG When compared with ECG of 11-APR-2022 10:28, Incomplete right bundle branch block is no longer Present Confirmed by SILVESTRE BOTELLO M.D. ([id number]) on 10/29/2024 8:31:45 AM [facility] 10/28/2024 6:56 AM ADJUNCT TRAINER 10/29/2024 8:31 AM ADJUNCT TRAINER Silvestre Botello MD ECG ORDERABLES Final Resul t [facility] * eGFR (10/28/2024 6:50 AM ADJUNCT TRAINER) eGFR 66 >=60 mL/min/1. 73 m2 Comment: [...] last reviewed 2021. Blood 10/28/2024 6:50 AM ADJUNCT TRAINER 10/28/2024 6:54 AM ADJUNCT TRAINER Silvestre Botello MD LAB BLOOD ORDERABLES Final Result [facility] [address] [facility] Department [place] [address] * Differential, auto (10/28/2024 6:50 AM ADJUNCT TRAINER) Neutrophil abs 3.3 1.5 - 6.5 K/cumm Imm gran abs 0.0 0.0 - 0.1 K/cumm [facility] Lymphocyte abs 1.4 0.8 - 3.3 K/cumm [facility] Monocyte abs 0.4 0.2 - 0.8 K/cumm [facility] Eosinophil abs 0.1 0.0 - 0.5 K/cumm [facility] Basophil abs 0.0 0.0 - 0.1 K/cumm [facility] Neutrophil pct 62.5 % [facility] Comment: Interpretive Data Percent cell count reference ranges are not reported, since discordance with absolute values may lead to misinterpretation of CBC data. Current Interpretive Data was last revised on 2018. Imm gran pct 0.6 % [facility] Comment: Interpretive Data Percent cell count reference ranges are not reported, since discordance with absolute values may lead to misinterpretation of CBC data. Current Interpretive Data was last revised on 2018. Lymphocyte pct 27.0 % [facility] Comment: Interpretive Data Percent cell count reference ranges are not reported, since discordance with absolute values may lead to misinterpretation of CBC data. Current Interpretive Data was last revised on 2018. Monocyte pct 7.0 % [facility] Comment: Interpretive Data Percent cell count reference ranges are not reported, since discordance with absolute values may lead to misinterpretation of CBC data. Current Interpretive Data was last revised on 2018. Eosinophil pct 2.3 % [facility] Comment: Interpretive Data Percent cell count reference ranges are not reported, since discordance with absolute values may lead to misinterpretation of CBC data. Current Interpretive Data was last revised on 2018. Basophil pct 0.6 % [facility] Comment: Interpretive Data Percent cell count reference ranges are not reported, since discordance with absolute values may lead to misinterpretation of CBC data. Current Interpretive Data was last revised on 2018. Blood 10/28/2024 6:50 AM ADJUNCT TRAINER 10/28/2024 6:54 AM ADJUNCT TRAINER us Silvestre Botello MD LAB BLOOD ORDERABLES Final Result [facility] [address] [facility] Department [place] [address] * CBC with auto differential (10/28/2024 6:50 AM ADJUNCT TRAINER) WBC 5.3 3.8 - 9.9 K/cumm Hgb 14.9 13.0 - 17.5 g/dL [facility] Hct 43.2 38.9 - 50.3 % [facility] Plt 226 150 - 400 K/cumm [facility] MPV 9.7 9.1 - 12.3 fL [facility] RBC 4.80 4.30 - 5.80 M/cumm [facility] MCV 90.0 81.3 - 96.4 fL [facility] MCH 31.0 27.1 - 33.3 pg [facility] MCHC 34.5 32.3 - 35.7 g/dL [facility] RDW CV 12.5 11.1 - 14.9 % [facility] RDW SD 41.1 35.7 - 48.1 fL [facility] NRBC abs 0.00 0.00 - 0.01 K/cumm [facility] Blood 10/28/2024 6:50 AM ADJUNCT TRAINER 10/28/2024 6:54 AM ADJUNCT TRAINER Narrative [facility] - 10/28/2024 6:58 AM ADJUNCT TRAINER If most recent labs were drawn prior to 4 AM, draw only prior to initiating procedure. Silvestre Botello MD LAB BLOOD ORDERABLES Final Result Performing Organization Address City/[facility]/ZIP Co de Phone Number [address] [place] [address] * ABO/Rh (10/28/2024 6:50 AM ADJUNCT TRAINER) ABO/Rh O Positive Blood 10/28/2024 6:50 AM ADJUNCT TRAINER 10/28/2024 6:53 AM ADJUNCT TRAINER Narrative [facility] - 10/28/2024 7:45 AM ADJUNCT TRAINER Has the patient had Daratumumab or Isatuximab in the past 6 months?->Unknown Silvestre Botello MD LAB BLOOD BANK TEST ORDERAB LES Final Result Performing Organization Address City/[facility]/ZIP Co de Phone Number [address] [place] [address] * aPTT (10/28/2024 6:50 AM ADJUNCT TRAINER) aPTT 30 22 - 37 sec Comment: Interpretive data aPTT test has not been evaluated for monitoring heparin therapy. The anti-Xa is the preferred test. Current interpretive data was last revised on 2019. Blood 10/28/2024 6:50 AM ADJUNCT TRAINER 10/28/2024 6:54 AM ADJUNCT TRAINER Silvestre Botello MD LAB BLOOD ORDERABLES Final Result Performing Organization Address [facility] de Phone Number [address] [address] * Protime-INR (10/28/2024 6:50 AM ADJUNCT TRAINER) Pathologist [facility] PT 13.7 12.0 - 14.6 sec INR 1.0 0.9 - 1.2 [facility] Comment: Ref Range High Interpretive data Oral anticoagulant therapeutic ranges: Venous thromboembolism prophylaxis or treatment: 2.0-3.0 CARDIOLOGY Standard range: 2.0-3.0 High-intensity range: 2.5-3.5 Refer to indication-specific guidelines for appropriate target ranges for prosthetic heart valve replacement. Current interpretive data was last revised on 2019. Blood 10/28/2024 6:50 AM ADJUNCT TRAINER 10/28/2024 6:54 AM ADJUNCT TRAINER Silvestre Botello MD LAB BLOOD ORDERABLES Final Result Performing Organization Address [facility] de Phone Number [address] [address] * Antibody screen (10/28/2024 6:50 AM ADJUNCT TRAINER) Pathologist [facility] Veronica, indirect, Gel Interpretation Negative ABSC Blood 10/28/2024 6:50 AM ADJUNCT TRAINER 10/28/2024 6:53 AM ADJUNCT TRAINER Narrative [facility] - 10/28/2024 7:45 AM ADJUNCT TRAINER Has the patient had Daratumumab or Isatuximab in the past 6 months?->Unknown Silvestre Botello MD LAB BLOOD BANK TEST ORDERAB LES Final Result Performing Organization Address [facility]/ZIP Co de Phone Number [facility] [address] [place] [address] * Basic metabolic panel (10/28/2024 6:50 AM ADJUNCT TRAINER) Sodium 140 135 - 145 mmol/L Potassium, pl 4.4 3.3 - 4.9 mmol/L [facility] Chloride 104 97 - 110 mmol/L [facility] CO2 28 22 - 32 mmol/L [facility] Anion gap 8 2 - 15 mmol/L [facility] BUN 12 6 - 25 mg/dL [facility] Creatinine 1.18 0.80 - 1.30 mg/dL [facility] Glucose 106 70 - 199 mg/dL [facility] Comment: Interpretive Data Fasting glucose >/= 126 [...] 2022. Calcium 10.3 8.5 - 10.3 mg/dL [facility] Blood 10/28/2024 6:50 AM ADJUNCT TRAINER 10/28/2024 6:54 AM ADJUNCT TRAINER Silvestre Botello MD LAB BLOOD ORDERABLES Final Result Performing Organization Address City/[facility]/ZIP Co de Phone Number [facility] [place] [address] * XR Chest 1 View (10/28/2024 6:49 AM ADJUNCT TRAINER) Anatomical Region Laterality Modality Body, Chest N/A Computed Radiogr aphy 10/28/2024 1:44 PM ADJUNCT TRAINER Narrative 10/28/2024 1:45 PM ADJUNCT TRAINER EXAM DESCRIPTION: XR CHEST 1 VIEW REASON [...] by Joey Polanco M.D. T: Report ID: [id number] Reading Location: [id number] Procedure Note Joey Polanco Jr., MD - [...] by Joey Polanco M.D. T: Report ID: [id number] Reading Location: [id number] us Silvestre Botello MD IMG XR PROCEDURES Final Res ult * CTA HEART W CALCIUM SCORING (10/16/2024 1:52 PM ADJUNCT TRAINER) Anatomical Region Laterality Modality Chest N/A Computed Tomogra phy, Computed Radiography 10/16/2024 3:05 PM ADJUNCT TRAINER Narrative 10/16/2024 3:23 PM ADJUNCT TRAINER EXAM DESCRIPTION: CTA HEART W CALCIUM SCORING [...] signed by Dirk ALVAREZ T: Report ID: [id number] Reading Location: [place] [address] Procedure Note Dirk Ward MD - 10/16/2024 [...] Dirk Ward M.D. KN T: Report ID: [id number] Reading Location: [place] [address] Suleman Moreno MANAGER REPORTING IMG CT PROCEDURES Final Result * PSA diagnostic (10/12/2024 8:50 AM ADJUNCT TRAINER) PSA-Total 0.17 <=6.20 ng/mL Comment: Interpretive Data AGE SEX REFERENCE INTERVAL 0 minutes-150 years Female None 0 minutes-49 years Male None 50-59 years Male 0-3.90 60-69 years Male 0-5.40 70-79 years Male 0-6.20 80-150 years Male 0-6.20 The [employer] PSA Total assay procedure was used. Results from different manufacturers or methods may not be comparable. Serial testing should be performed using the same method. Current interpretive data last revised 22. Blood 10/12/2024 8:50 AM ADJUNCT TRAINER 10/12/2024 9:30 AM ADJUNCT TRAINER Odalys Giron MANAGER REPORTING LAB BLOOD ORDERABLES F inal Result [facility] Department of Laboratories [place], [place] [id number] * COLONOSCOPY (12/07/2021 8:21 AM ADJUNCT TRAINER) Anatomical Region Laterality Modality Other Narrative Procedure Note Kerwin Dawkins MD - 12/07/2021 8:21 AM CST GI ENDOSCOPY [facility] Patient Name: Shana Cross Procedure Date: 12/07/2021 8:21 AM Date of : 1955 Admit Type: Outpatient Age: 66 Gender: Male Attending MD: Kerwin Dawkins M.D. Room: [facility] ENDOSCOPY ROOM 3 Note Status: Finalized Procedure: [...] Repeat colonoscopy in 3 - 5 years forsurveillance based on pathology results. - Return to GI office in 8 weeks. Attending Participation: I was present and participated during the entire procedure from insertion to removal of the endoscope. Electronically signed by Kerwin Dawkins MD Kerwin Dawkins M.D. 12/07/2021 9:06:47 AM . Number of Addenda: 0 Note Initiated On: 12/07/2021 8:21 AM Recognized by the [employer] for promoting quality in endoscopy Kerwin Dawkins MD ENDOSCOPY PROCEDURES Final Result from Last 3 Months or Most Recently Relevant to Health Maintenance Insurance [facility] MEDICARE ADVANTAGE MEDICARE RESEARCH [facility] MEDICARE ADVANTAGE [facility] MEDICARE Address: [address] [address] [place] [address] [facility] MEDICARE ADVANTAGE [facility] MEDICARE Address: [facility] [address] [place] [address] [facility] MEDICARE ADVANTAGE [facility] MEDICARE Address: [address] [address] [place] [address] [employer] MEDICARE ADVANTAGE [facility] MEDICARE Address: [address] [place] [address] MEDICARE ADVANTAGE [facility] MEDICARE Address: [address] [place] [address] [facility] MEDICARE Address: [place] [address] [facility] MEDICARE Address: [address] [address] [place] [id number] [place] MEDICARE ADVANTAGE [facility] MEDICARE Address: [address] [place], [place] [id number] [place] [place] MEDICARE ADVANTAGE [facility] MEDICARE Address: [address] [place] [address] ([place]) [address] [place] [id number] [facility] MEDICARE ADVANTAGE [facility] MEDICARE Address: [address] [address] [place] [phone] Advance Directives For more information, please contact: [phone] * Full Code (Latest Code Status on [...] 7:25 AM 12/07/2021 2:03 PM Care Teams Centerless Grinder Relationship Specialty Start Date End Date Valerio Morrow MD [address] [place] [address] PCP - General Family Practice 05/08/23 Omari Matthews MD Referring Physician Urology 08/17/18 Bessie Blanco MD [address] [place] [address] Referring Physician Gastroenterology 12/13/18 Odalys Giron NP [address] [facility] [address] [place] [address] Nurse Practitioner Nurse Practitioner 02/19/21 Mike Cummings MD [address] [facility] [address] [place] [address] Consulting Physician Cardiovascular Disease 04/09/22 Kerwin Dawkins MD [address] [place] [address] Consulting Physician Gastroenterology 07/26/22 Oli Otero MD [address] [place] [address] Radiation Oncologist Radiation Oncology 04/14/23
--- OUTSIDE RECORDS SUMMARY | 2024-12-26 13:36 | XMS_ITS | Encounter Summary ---
Author Organization [facility] Facility Care Team Providers Care Peg Driver Name Role Phone Mary Lopez MD Primary Care Provider [phone] Dirk Colindres MD Primary Care Provider [phone] Kurt Alexander DO Primary Care Provider [phone] Santiago Sena MD Unavailable [phone] Omari Matthews MD Unavailable [phone] Bessie Blanco MD Unavailable [phone] Odalys Giron NP Unavailable Mike Cummings MD Unavailable Kerwin Dawkins MD Unavailable [phone] Oli Otero MD Unavailable [phone] Jesus Morrow MD Primary Care Provider [phone] Encounter Details Date Type Department Care Team (Latest Contact Info) Description 04/07/2017 Orders Only [facility] CLINCONV ProviderNe MD [address] [place] [address] Social History Tobacco Use Types Packs/Day Years Used Date Smoking Tobacco: Some Days Alcohol Use Standard Drinks/Week Comments Yes 0 (1 standard drink = 0.6 oz pur e alcohol) Sex and Gender Information Value Date Recorded Sex Assigned at Not on file Legal Sex Male 9:20 AM PROBATE CLERK Gender Identity Not on file Sexual Orientation Not on file documented as of this encounter Plan of Treatment Not on file documented as of this encounter Procedures Procedure Name Priority Date/Time Associated Diagnosis Comments PROCEDURE - RESULT 04/07/2017 12 :00 AM CDT documented in this encounter Results * PROCEDURE - RESULT (04/07/2017 12:00 AM CDT) Narrative 04/07/2017 12:00 AM CDT Ordered by an unspecified provider. us Historical Provider Final Res ult documented in this encounter Visit Diagnoses Not on filedocumented in this encounter Additional Health Concerns Infection Onset Date Last Indicated Resolved Time COVID: Suspected 11/01/2024 11/01/2024 11/01/2024 6:55 PM PROBATE CLERK documented as of this encounter Care Teams Peg Driver Relationship Specialty Start Date End Date Mary Lopez MD PCP - General 11/18/15 05/16/17 Dirk Colindres MD PCP - General Internal Medicine 05/17/17 05/02/18 Kurt Alexander DO PCP - General Internal Medicine 05/03/18 05/07/23 Jesus Morrow MD [address] [place] [address] PCP - General Family Practice 05/08/23 Santiago Sena MD Radiation Oncologist Radiation Oncology 08/17/18 3 Omari Matthews MD Referring Physician Urology 08/17/18 Bessie Blanco MD [address] [place] [address] Referring Physician Gastroenterology 12/13/18 Odalys Giron NP [address] [facility] [address] [place] [address] Nurse Practitioner Nurse Practitioner 02/19/21 Mike Cummings MD [address] [facility] [address] [place] [address] Consulting Physician Cardiovascular Disease 04/09/22 Kerwin Dawkins MD [address] [place] [address] Consulting Physician Gastroenterology 07/26/22 Oli Otero MD [address] [place] [address] Radiation Oncologist Radiation Oncology 04/14/23 documented as of this encounter
--- OUTSIDE RECORDS SUMMARY | 2024-12-26 13:36 | XMS_ITS | Encounter Summary ---
Author Organization [facility] Healthcare Address [address] [place] [address] Care Team Providers Care Straw Hat Plunger Operator Name Role Phone Benjamin Kurt VASQUES Primary Care Provider Santiago Sena MD Unavailable [phone] Omari Matthews MD Unavailable [phone] Bessie Blanco MD Unavailable [phone] Odalys Giron NP Unavailable [phone] Mike Cummings MD Unavailable Kerwin Dawkins MD Unavailable [phone] Oli Otero MD Unavailable [phone] Jesus Morrow MD Primary Care Provider [phone] Encounter Details Date Type Department Care Team (Late st Contact Info) Description 08/14/2020 Telephone [facility] Radiation Oncology [address] [facility] Advanced [place] [address] Katia Vizcaino MA Social History Tobacco Use Types Packs/Day Years Used Date Smoking Tobacco: Some Days Cigars Started: 1989 Smokeless Tobacco: Never Comments:6-7 cigars daily Alcohol Use Standard Drinks/Week Comments Yes 0 (1 standard drink = 0.6 oz pur e alcohol) binge drinks every other month Sex and Gender Information Value Date Recorded Sex Assigned at Not on file 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 Sex Male 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 Gender Identity Not on file Sexual Orientation [...] COVID: Suspected 11/01/2024 11/01/2024 11/01/2024 6:55 PM ALUMINUM BOAT INSPECTOR documented as of this encounter Care Teams Straw Hat Plunger Operator Relationship Specialty Start Date End Date Kurt Alexander DO PCP - General Internal Medicine 05/03/18 05/07/23 Jesus Morrow MD [address] [place] [address] PCP - General Family Practice 05/08/23 Santiago Sena MD Radiation Oncologist Radiation Oncology 08/17/18 3 Omari Matthews MD Referring Physician Urology 08/17/18 Bessie Blanco MD [address] [place] [address] Referring Physician Gastroenterology 12/13/18 Odalys Giron NP [address] [facility] [address] [place] [address] Nurse Practitioner Nurse Practitioner 02/19/21 Mike Cummings MD [address] [facility] [address] # [address] [place] [address] Consulting Physician Cardiovascular Disease 04/09/22 Kerwin Dawkins MD [address] [place] [address] Consulting Physician Gastroenterology 07/26/22 Oli Otero MD [address] [place] [address] Radiation Oncologist Radiation Oncology 04/14/23 documented as of this encounter
--- OUTSIDE RECORDS SUMMARY | 2024-12-26 13:36 | XMS_ITS | Encounter Summary ---
Author Organization [facility] Healthcare Address [address] [place] [address] Care Team Providers Care Sole Leveler Name Role Phone Benjamin Kurt VASQUES Primary Care Provider [phone] Santiago Sena MD Unavailable [phone] Omari Matthews MD Unavailable [phone] Bessie Blanco MD Unavailable [phone] Odalys Giron NP Unavailable [phone] Mike Cummings MD Unavailable Kerwin Dawkins MD Unavailable [phone] Oli Otero MD Unavailable [phone] Jesus Morrwo MD Primary Care Provider [phone] Encounter Details Date Type Department Care Team (Late st Contact Info) Description 08/10/2020 Telephone [facility] Radiation Oncology [address] 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 Gender Identity Not on file Sexual Orientation [...] COVID: Suspected 11/01/2024 11/01/2024 11/01/2024 6:55 PM INTERNAL MEDICINE VETERINARY TECHNICIAN documented as of this encounter Care Teams Sole Leveler Relationship Specialty Start Date End Date Kurt Alexander DO PCP - General Internal Medicine 05/03/18 05/07/23 Jesus Morrow MD [address] [place] [address] PCP - General Family Practice 05/08/23 Santiago Sena MD Radiation Oncologist Radiation Oncology 08/17/18 3 Omari Matthews MD Referring Physician Urology 08/17/18 Bessie Blanco MD [address] [place] [address] Referring Physician Gastroenterology 12/13/18 Odalys Giron NP [address] [facility] [address] [place] [address] Nurse Practitioner Nurse Practitioner 02/19/21 Mike Cummings MD [address] [facility] [address] [place] [address] Consulting Physician Cardiovascular Disease 04/09/22 Kerwin Dawkins MD [address] [place] [address] Consulting Physician Gastroenterology 07/26/22 Oli Otero MD [address] [place] [address] Radiation Oncologist Radiation Oncology 04/14/23 documented as of this encounter
--- OUTSIDE RECORDS SUMMARY | 2024-12-26 13:36 | XMS_ITS | Clinical Summary ---
Author Organization [facility] Care Team Providers Care Foreign Banknote Teller Name Role Phone Unavailable Primary Care Provider Unavailabl e Social History Tobacco Use Types Packs/Day Years Used Date Smoking Tobacco: Never Assessed Sex and Gender Information Value Date Recorded Sex Assigned at Not on file Legal Sex Male 8:39 AM TRAVEL PTA Gender Identity Not on file Sexual Orientation Not on file Plan of Treatment Health Maintenance Due Date Last Done Comments Hepatitis C Virus (HCV) Screening 1955 TdaP Immunization 1955 Colonoscopy 1999 Colorectal Cancer Screening 1999 Cologuard 2004 Immunochemical Fecal Occult Blood 2004 Pneumococcal Immunization (5 0+ years) (1 of 1 - PCV) 2004 Zoster Immunization (1 of 2) 2004 PSA Discussion 2009 Influenza Immunization (#1) 2024 SARS-COV-2 Immunization ( - 2023- season) 2024 01/15/2021, 12/18/2020 Respiratory Syncytial Virus (RSV) Immunization (Adult) (1 - 1-dose 75+ series) 2029 Hepatitis B Immunization Aged Out No longer eligible based on patient's age to complete this topic Meningococcal Immunization (ACWY) Aged Out No longer eligible b ased on patient's age to complete this topic Rotavirus Immunization Aged Out No lo nger eligible based on patient's age to complete this topic
--- OUTSIDE RECORDS SUMMARY | 2024-12-26 13:36 | XMS_ITS | Encounter Summary ---
Author Organization [facility] Healthcare Address [address] [place] [address] Care Team Providers Care Yard Brakeman Name Role Phone Omari Matthews MD Unavailable [phone] Bessie Blanco MD Unavailable [phone] Odalys Giron NP Unavailable [phone] Mike Cummings MD Unavailable Kerwin Dawkins MD Unavailable [phone] Oli Otero MD Unavailable [phone] Jesus Morrow MD Primary Care Provider [phone] Encounter Details Date Type Department Care Team (Late st Contact Info) Description 11/04/2024 Telephone [facility] Cardiac Opal Polisher [address] [place] [address] Stanley Wright MD [address] [address] Social History Tobacco Use Types Packs/Day Years [...] on one occasion? Less than monthly 12/07/2021 Personal Safety Answer Date Recorded Have you ever been in or are you currently in a harmful physical or emotional relationship or is someone making you feel afraid or unsafe? 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 Not on file Not on f ile Not on file documented as of this encounter Plan of Treatment Not on file documented as of this encounter Visit Diagnoses Not on filedocumented in this encounter Care Teams Yard Brakeman Relationship Specialty Start Date End Date Jesus Morrow MD [address] [place] [address] PCP - General Family Practice 05/08/23 Omari Matthews MD Referring Physician Urology 08/17/18 Bessie Blanco MD [address] [place] [address] Referring Physician Gastroenterology 12/13/18 Odalys Giron NP [address] [place] [address] Nurse Practitioner Nurse Practitioner 02/19/21 Mike Cummings MD [address] [place] [address] Consulting Physician Cardiovascular Disease 04/09/22 Kerwin Dawkins MD [address] [place] [address] Consulting Physician Gastroenterology 07/26/22 Oli Otero MD [address] [place] [address] Radiation Oncologist Radiation Oncology 04/14/23 documented as of this encounter
== END 2024-12-26 13:09 | disposition home or self-care (01) ==
LOC: ANHAUDIO 13:09
PROVIDERS: PCP Family Medicine; Visit Provider Family Medicine
DX: H90.3 Sensorineural hearing loss, bilateral (principal)
CPT/HCPCS: 92557; 92567

== ENCOUNTER 2025-09-09 15:35 | Outpatient (CLI) | payer MEDICARE, SELFPAY ==
[2025-09-09 16:20] LABS: Strep Group A RT-PCR NOT DETECTED (Negative)
[2025-09-09 16:32] LABS: Influenza A QL RT-PCR Negative (Negative); Influenza B QL RT-PCR Negative (Negative); RSV RNA, RT-PCR Negative (Negative); SARS-CoV-2 RNA PCR Negative (Negative)
--- OUTSIDE RECORDS SUMMARY | 2025-09-09 16:44 | XMS_ITS | Encounter Summary ---
Author Organization [facility] Healthcare Address [address] [place] [address] Care Team Providers Care Machine Deicer Element Winder Name Role Phone Kurt Alexander Primary Care Provider [phone] Santiago Sena MD Unavailable [phone] Omari Matthews MD Unavailable [phone] Bessie Blanco MD Unavailable [phone] Odalys Giron NP Unavailable [phone] Mike Cummings MD Unavailable Kerwin Dawkins MD Unavailable Oli Otero MD Unavailable [phone] Jesus Morrow MD Primary Care Provider [phone] Kevon Osborne MD Unavailable [phone] Encounter Details Date Type Department Care Team (Late st Contact Info) Description 08/14/2020 Telephone [facility] Radiation Oncology [address] [facility] [place] [address] Katia Vizcaino MA Social History Tobacco Use [...] on file Legal Sex Male 9:20 AM MANAGER REGISTRATION Gender Identity Not on file Sexual Orientation [...] COVID: Suspected 11/01/2024 11/01/2024 11/01/2024 6:55 PM MANAGER REGISTRATION documented as of this encounter Care Teams Machine Deicer Element Winder Relationship Specialty Start Date End Date Kurt Alexander DO PCP - General Internal Medicine 05/03/18 05/07/23 Jesus Morrow MD [address] [place] [address] PCP - General Family Practice 05/08/23 Santiago Sena MD Radiation Oncologist Radiation Oncology 08/17/18 3 Omari Matthews MD Referring Physician Urology 08/17/18 Bessie Blanco MD [address] [place] [address] Referring Physician Gastroenterology 12/13/18 Odalys Giron NP [address] [facility] [address] [place] [address] Nurse Practitioner Nurse Practitioner 02/19/21 Mike Cummings MD [address] [facility] [address] [place] [address] Consulting Physician Cardiovascular Disease 04/09/22 Kerwin Dawkins MD [address] [place] [address] Consulting Physician Gastroenterology 07/26/22 Oli Otero MD [address] [place] [address] Radiation Oncologist Radiation Oncology 04/14/23 Kevon Osborne MD [address] [facility] O[facility], [address] [place] [address] Consulting Physician Retina Ophthalmology 08/07/25 documented as of this encounter
--- OUTSIDE RECORDS SUMMARY | 2025-09-09 16:44 | XMS_ITS | Clinical Summary ---
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 Gender Identity Not on file Sexual Orientation Not on file Plan of Treatment Health Maintenance Due Date Last Done Comments Hepatitis C Virus (HCV) Screening 1955 TdaP Immunization 1954 Cologuard 1999 Colonoscopy 1999 Colorectal Cancer Screening 1999 Immunochemical Fecal Occult Blood 1999 Pneumococcal Immunization (5 0+ years) (1 of 1 - PCV) 2004 Zoster Immunization (1 of 2) 2004 Influenza Immunization (#1) 2025 SARS-COV-2 Immunization (3 - season) 2025 01/15/2021, 12/18/2020 Respiratory Syncytial Virus (RSV) Immunization (Adult) (1 - 1-dose 75+ series) 2029 Hepatitis B Immunization Aged Out No longer eligible based on patient's age to complete this topic Human Papillomavirus (HPV) Immunization Aged Out No longer eligible b ased on patient's age to complete this topic Meningococcal Immunization (ACWY) Aged Out No longer eligible b ased on patient's age to complete this topic Rotavirus Immunization Aged Out No lo nger eligible based on patient's age to complete this topic
--- OUTSIDE RECORDS SUMMARY | 2025-09-09 16:44 | XMS_ITS | Encounter Summary ---
Author Organization [facility] Healthcare Address [address] [place] [address] Care Team Providers Care Inseamer Name Role Phone Kurt Alexander Primary Care Provider [phone] Santiago Sena MD Unavailable [phone] Omari Matthews MD Unavailable [phone] Bessie Blanco MD Unavailable [phone] Odalys Giron NP Unavailable [phone] Mike Cummings MD Unavailable Kerwin Dawkins MD Unavailable [phone] Oli Otero MD Unavailable [phone] Jesus Morrow MD Primary Care Provider [phone] Kevon Osborne MD Unavailable [phone] Encounter Details Date Type Department Care Team (Late st Contact Info) Description 08/10/2020 Telephone [facility] Radiation Oncology [address] [facility] [place] [address] Katia Vizcaino MA Social History Tobacco Use [...] on file 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 Gender Identity Not on file Sexual [...] COVID: Suspected 11/01/2024 11/01/2024 11/01/2024 6:55 PM AUGER OPERATOR documented as of this encounter Care Teams Inseamer Relationship Specialty Start Date End Date Kurt Alexander DO PCP - General Internal Medicine 05/03/18 05/07/23 Jesus Morrow MD [address] [place] [address] PCP - General Family Practice 05/08/23 Santiago Sena MD Radiation Oncologist Radiation Oncology 08/17/18 3 Omari Matthews MD Referring Physician Urology 08/17/18 Bessie Blanco MD [address] [place] [address] Referring Physician Gastroenterology 12/13/18 Odalys Giron NP [address] [facility] [address] [place] [address] Nurse Practitioner Nurse Practitioner 02/19/21 Mike Cummings MD [address] [facility] [address] [place] [address] Consulting Physician Cardiovascular Disease 04/09/22 Kerwin Dawkins MD [address] [place] [address] Consulting Physician Gastroenterology 07/26/22 Oli Otero MD [address] [place] [address] Radiation Oncologist Radiation Oncology 04/14/23 Kevon Osborne MD [address] [facility], [address] [place] [address] Consulting Physician Retina Ophthalmology 08/07/25 documented as of this encounter
--- OUTSIDE RECORDS SUMMARY | 2025-09-09 16:44 | XMS_ITS ---
Author Organization [facility] Address [address] [place] [id number] Care Team Providers Care Underwater Hunter Trapper Name Role Phone Omari Matthews MD Unavailable [phone] Bessie Blanco MD Unavailable Odalys Giron NP Unavailable Mike Cummings MD Unavailable Kerwin Dawkins MD Unavailable Oli Otero MD Unavailable Jesus Morrow MD Primary Care Provider [phone] Kevon Osborne MD Unavailable Active Problems Problem Noted Date Diagnosed Date Age-related nuclear cataract of both eyes 2024 Assessment & Plan (08/07/2025 4:57 PM CDT): Pt is asymptomatic. Defer cataract extraction (CE) until signs/sx indicate. Recommend UV eye protection. Release updated glasses Rx Left eye sensitive to light 08/07/2025 Assessment & Plan (08/07/2025 4:58 PM CDT): Rec tinted glasses and separate sun Rx (polarized) vs transitions TIA (transient ischemic attack) 05/22/2025 History of CVA (cerebrovascular accident) 2024 Paracentral acute middle maculopathy 04/07/2025 Assessment & Plan (08/07/2025 4:56 PM CDT): Stable visual acuity (VA) Seen initially in retina (Dr. Osborne) RTC with any acute changes Assessment & Plan (04/07/2025 10:55 AM CDT): History of hypertension, noticed decline in vision several months ago. Was seen at [facility] and diagnosed with artery/vein occlusion and paracentral acute middle maculopathy. Seeking a 2nd opinion/wishing to change care to [facility], regarding changes in the left eye. Examination is essentially normal, OCT demonstrates some middle maculopathy like changes. I think this is a diagnosis that is consistent with what he was told at [facility]. We discussed the guarded prognosis for vision, I have encouraged him to stay on top of his blood pressure. I recommend follow up with our Optometry, I am happy to see him should things worsen in any way. Amblyopia of right eye 04/07/2025 Assessment & Plan (08/07/2025 12:25 PM CDT): Recommended glasses time study clerk wear for eye protection. Assessment & Plan (04/07/2025 10:54 AM CDT): Poor vision since childhood, recommend observation. Guarded prognosis reviewed. Follow up with optometry. Blurry vision, left eye 02/03/2025 New onset of headaches 02/03/2025 Numbness and tingling of left side of face 02/03 Embolism and thrombosis of other arteries 2024 Retinal artery occlusion 11/06/2024 Assessment & Plan (08/07/2025 12:31 PM CDT): History of vein occlusion. Stable without macular edema today. monitor Coronary artery stenosis 10/28/2024 Coronary stenosis 10/28/2024 TY (dyspnea on exertion) 10/24/2024 Anxiety 10/21/2024 CVA (cerebral vascular accident) 10/21/2024 Vision loss of left eye 10/21/2024 GERD (gastroesophageal reflux disease) SBO (small bowel obstruction) 02/29/2024 Small bowel obstruction 06/27/2023 Assessment & Plan (06/12/2025 3:25 PM CDT): At this point seems to be doing better. Will wait and watch and f/u in 4 mo sooner if needed. Psychophysiological insomnia 02/27/2023 BMI 32.0-32.9,adult 02/27/2023 Primary hypertension 01/20/2023 Pure hypertriglyceridemia 01/20/2023 HOLLIS (obstructive sleep apnea) 04/12/2022 Sinus bradycardia 04/07/2022 Abdominal pain 11/04/2021 Overview (11/04/2021): Added automatically from request for surgery [id number] Ileitis 11/04/2021 Overview (11/04/2021): Added automatically from request for surgery [id number] Assessment & Plan (11/04/2021 8:24 PM CARDIOPULMONARY TECHNOLOGIST): Noted to have had ileitis which was [...] (11/04/2021): Added automatically from request for surgery [id number] Assessment & Plan (11/04/2021 8:20 PM CARDIOPULMONARY TECHNOLOGIST): EGD done in 2019 also showed a salmon-colored mucosa island just proximal to the GEJ. 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 He has GERD and currently on protonix 40 mg every day. Plan: Repeat EGD Esophagitis 11/04/2021 Overview (11/01/2024): Added automatically from request for surgery [id number] Last Assessment & Plan: EGD done in [...] (10/30/2018): Added automatically from request for surgery [id number] Gastrointestinal hemorrhage associated with olivia ritis 10/30/2018 Overview (10/30/2018): Added automatically from request for surgery [id number] Adenocarcinoma of prostate (CMS/HCC) 08/17/2018 Cancer Staging:Clinical: cT1c, PSA: 8.8, Grade Group: 3 - Signed by Eric Degroot MD on 11/28/2018 Elevated PSA 06/13/2018 Overview (06/13/2018): Added automatically from request for surgery [id number] Hypercholesteremia 05/28/2017 Assessment & Plan (02/08/2022 12:14 [...] Lifetime Dose Automatic Entry Manual Entr y Fluoro Time 2.1 minutes 0 minutes 2.1 minutes Air kerma at the reference point (Ka,r) 917 mGy 0 mGy 917 mGy DLP 5,444 mGycm 5,444 mGycm 0 mGycm DAP 29.7 Gy-cm2 0 Gy-cm2 29.7 Gy-cm2 Resolved Problems Problem Noted Date Diagnosed Date Resolved Date Encounter for monitoring flecainide therapy 06/06/2022
--- OUTSIDE RECORDS SUMMARY | 2025-09-09 16:44 | XMS_ITS | Encounter Summary ---
Author Organization [facility] Care Team Providers Care Lapel Padder Blindstitch Name Role Phone Mary Lopez MD Primary Care Provider [phone] Dirk Colindres MD Primary Care Provider [phone] Kurt Alexander DO Primary Care Provider Santiago Sena MD Unavailable [phone] Omari Matthews MD Unavailable [phone] Bessie Blanco MD Unavailable [phone] Odalys Giron NP Unavailable Mike Cummings MD Unavailable Kerwin Dawkins MD Unavailable [phone] Oli Otero MD Unavailable [phone] Jesus Morrow MD Primary Care Provider [phone] Kevon Osborne MD Unavailable [phone] Encounter Details Date Type Department Care Team (Latest Contact Info) Description 04/07/2017 Orders Only [facility] ProviderNe MD [address] [place] [id number] Social History Tobacco Use Types Packs/Day Years Used Date Smoking Tobacco: Some Days Alcohol Use Standard Drinks/Week Comments Yes 0 (1 standard drink = 0.6 oz pur e alcohol) Sex and Gender Information Value Date Recorded Sex Assigned at Not on file Legal Sex Male 9:20 AM 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 PROCESSING SUPERVISOR Gender Identity Not on file Sexual Orientation [...] COVID: Suspected 11/01/2024 11/01/2024 11/01/2024 6:55 PM EGG PROCESSING SUPERVISOR documented as of this encounter Care Teams Lapel Padder Blindstitch Relationship Specialty Start Date End Date Mary Lopez MD PCP - General 11/18/15 05/16/17 Dirk Colindres MD PCP - General Internal Medicine 05/17/17 05/02/18 Kurt Alexander DO PCP - General Internal Medicine 05/03/18 05/07/23 Jesus Morrow MD [address] [place] [address] PCP - General Family Practice 05/08/23 Santiago Sena MD Radiation Oncologist Radiation Oncology 08/17/18 3 Omari Matthews MD Referring Physician Urology 08/17/18 Bessie Blanco MD [address] [place] [address] Referring Physician Gastroenterology 12/13/18 Odalys Giron NP [address] [facility] [address] [place] [address] Nurse Practitioner Nurse Practitioner 02/19/21 Mike Cummings MD [address] [facility] [address] [place] [address] Consulting Physician Cardiovascular Disease 04/09/22 Kerwin Dawkins MD [address] [place] [address] Consulting Physician Gastroenterology 07/26/22 Oli Otero MD [address] [place] [address] Radiation Oncologist Radiation Oncology 04/14/23 Kevon Osborne MD [address] [facility], [address] [place] [address] Consulting Physician Retina Ophthalmology 08/07/25 documented as of this encounter
--- OUTSIDE RECORDS SUMMARY | 2025-09-09 16:44 | XMS_ITS | Clinical Summary ---
Author Organization [facility] D Address [address] [place] [phone] Care Team Providers Care Zipper Lining Folder Name Role Phone Omari Matthews MD Unavailable [phone] Bessie Blanco MD Unavailable [phone] Odalys Giron NP Unavailable Mike Cummings MD Unavailable Kerwin Dawkins MD Unavailable [phone] Oli Otero MD Unavailable Jesus Morrow MD Primary Care Provider [phone] Kevon Osborne MD Unavailable Allergies Active Allergy Reactions Criticality Noted Date Comments Lidocaine Flushing (skin),Redness Low 11/15/2018 Naproxen Fatigue Medium 11/16/2021 Venom-Wasp Swelling Medium 11/16/2021 Wasp Venom Swelling Medium 12/21/2020 Medications LORazepam (ATIVAN) 1 mg tablet take 1 tablet by oral route every 8 hours as needed 0 0 4 Active multivitamin tabletIndicatio ns:Vitamin Deficiency Prevention Take 1 tablet by mouth daily Active pantoprazole DR (PROTONIX) 40 mg EC tablet Take 1 tablet (40 mg total) by mouth daily 9 Active fenofibrate (TRICOR) 54 mg tablet Take 1 tablet (54 mg total) by mouth daily 3 Active aspirin 81 mg enteric coated tablet Take 1 tablet (81 mg total) by mouth daily Active acetaminophen (TYLENOL) 500 mg tablet Take 2 tablets (1,000 mg total) by mouth every 6 (six) hours as needed for headaches 30 tablet 5 Active metoprolol XL (TOPROL-XL) 25 mg extended release tablet TAKE 1 TABLET(25 MG) BY MOUTH DAILY 90 tablet 1 5 Active atorvastatin (LIPITOR) 40 mg tablet Take 1 tablet (40 mg total) by mouth nightly Active icosapent ethyL (VASCEPA) 1 gram capsule Take 2 capsules (2 g total) by mouth 2 (two) times a day 120 capsule 11 5 06/17/20 26 Active dicyclomine (BENTYL) 20 mg tablet TAKE 1 TABLET(20 MG) BY MOUTH EVERY 6 HOURS 120 tablet 3 5 Active HYDROcodone-ayush taminophen (NORCO) 7.5-325 mg per tablet Take by mouth every 6 (six) hours as needed 5 Active sildenafiL (VIAGRA) 100 mg tablet Take 1 tablet (100 mg total) by mouth daily as needed 4 Active topiramate (TOPAMAX) 25 mg tablet 5 Active fluorouraciL 5 % solution Apply 1 drop topically 2 (two) times a day 40 mL 1 5 Active fluorouraciL (EFUDEX) 5 % creamIndication s:Actinic keratosis Apply topically 2 (two) times a day To arms as needed 40 g 1 5 08/13/20 25 Discontinu ed(Duplica te order) Active Problems Problem Noted Date Diagnosed Date [...] vision several months ago. Was seen at 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 Seeking a 2nd opinion/wishing to change care to [facility], regarding changes in the left eye. Examination is essentially normal, OCT demonstrates some middle maculopathy like changes. I think this is a diagnosis that is consistent with what he was told at [facility]. We discussed the guarded prognosis for vision, I have encouraged him to stay on top of his blood pressure. I recommend follow up with our Optometry, I am happy to see him should things worsen in any way. 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 Assessment & Plan [...] (11/04/2021): Added automatically from request for surgery [id number] Ileitis 11/04/2021 Overview (11/04/2021): Added automatically from request for surgery [id number] Assessment & Plan (11/04/2021 8:24 PM ENVIRONMENTAL TEST TECHNICIAN): Noted to have had ileitis which was [...] (11/04/2021): Added automatically from request for surgery [id number] Assessment & Plan (11/04/2021 8:20 PM ENVIRONMENTAL TEST TECHNICIAN): EGD done in 2019 also showed a salmon-colored mucosa island just proximal to the GEJ. 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 He has GERD and currently on protonix 40 mg every day. Plan: Repeat EGD Esophagitis 11/04/2021 Overview (11/01/2024): Added automatically from request for surgery [id number] Last Assessment & Plan: EGD done in [...] (10/30/2018): Added automatically from request for surgery [id number] Gastrointestinal hemorrhage associated with olivia ritis 10/30/2018 Overview (10/30/2018): Added automatically from request for surgery [id number] Adenocarcinoma of prostate ([facility]/HCC) 08/17/2018 Cancer Staging:Clinical: cT1c, PSA: 8.8, Grade Group: 3 - Signed by Eric Degroot MD on 11/28/2018 Elevated PSA 06/13/2018 Overview (06/13/2018): Added automatically from request for surgery [id number] Hypercholesteremia 05/28/2017 Assessment & Plan (02/08/2022 12:14 [...] Encounters Date Type Department Care Team Description 08/18/2025 1:00 PM ENVIRONMENTAL TEST TECHNICIAN Ancillary Procedure [facility] Cardiology [address] [place] [phone] Encounter for loop recorder check; Cryptogenic stroke (HCC) 08/18/2025 Orders Only [facility] [address] [place] [phone] Judd Valadez MD PhD Encounter for loop recorder check (Primary Dx); Cryptogenic stroke (HCC) 08/13/2025 Results Follow-Up [facility] Medicine Dermatology [address] [place] [address] [address] [place] [address] Hira Cespedes MD Surgical pathology 08/13/[address] [facility] Medicine Dermatology [address] [place] [address] [address] [place] [address] Hira Cespedes MD Actinic keratosis 08/07/2025 9:45 AM CDT Office Visit [facility] Medicine Ophthalmology [address] [facility] 6th Floor, [address] [place] [phone] Perla Jack, OD Paracentral acute middle maculopathy (Primary Dx); Amblyopia of right eye; Age-related nuclear cataract of both eyes; Left eye sensitive to light 08/06/[address] [facility] Medicine Pathology Outreach [address] [place] [address] Hira Cespedes MD Neoplasm of uncertain behavior of skin 08/05/2025 4:30 PM CDT Office Visit [facility] Dermatology [address] [facility] [address] [place] [phone] Hira Cespedes MD Neoplasm of uncertain behavior of skin (Primary Dx); Actinic keratosis; Condyloma acuminata; Nevus; Lentigines; Seborrheic keratosis 07/22/[address] [facility] Medicine Scheduling [address] [place] [address] Nikki Garcia B.A. [facility] DOC 07/03/2025 Telephone [facility] [address] [place] [phone] Luis Fox MD 06/25/2025 Telephone [facility] [address] [place] [address] [address] Luis Fox MD 06/23/2025 Telephone [facility] [address] [facility] [address] [address] Luis Fox MD 06/17/2025 10:10 AM CDT Ancillary Procedure [facility] [address] [address] PVC (premature ventricular contraction) 06/17/2025 9:55 AM CDT Ancillary Procedure [facility] [address] [phone] 06/16/2025 Telephone [facility] Medical [facility] Cardiology [address] [place] [address] Luis Fox MD 06/12/2025 2:00 PM CDT Office Visit [facility] Medicine Gastroenterology [address] [facility] 12th [place] [address] [place] [address] Kerwin Dawkins MD Small bowel obstruction (HCC) (Primary Dx); LLQ abdominal pain 06/10/2025 Results Follow-Up [facility] [address] [place] [address] Luis Fox MD Magnesium, Basic metabolic panel, CBC with auto differential, Additional followed-up results: 4 from Last 3 Months Surgical History Surgery [...] Gout Inflammatory bowel disease Colon polyp Diarrhea Paracentral acute middle maculopathy Hypertension Amblyopia, right eye BcDVA 20/40 Nuclear sclerotic cataract, bilateral Optic cupping, bilateral C/D rat io OU (0.4) Vitreous syneresis, bilateral Wears glasses [place] (hard of hearing) Family History Medical History Relation Name Comments [...] e alcohol) binge drinks every other month [facility] Utilities Answer Date Recorded In the past 12 months has th e electric, gas, oil, or water company threatened to shut off services in your home? No 11/25/2024 Social Connection and Isolation Panel Answer Date Recorded In a typical week, how many times do you talk on the phone with family, friends, or neighbors? More than three times a week 11/25/2024 How often do you get togethe r with friends or relatives? More than three times a week 11/25/2024 How often do you attend chur ch or yarsani services? Never 11/25/2024 Do you belong to any clubs o r organizations such as methodist groups, unions, fraternal or athletic groups, or [...] any time in the past 12 [facility], were you homeless or living in a fpc (including now)? No 11/25/2024 Personal Safety Answer Date Recorded Have you ever been in or are you currently in a harmful physical or emotional relationship or is someone making you feel afraid or unsafe? 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 Not on f ile Not on file Last Filed Vital Signs Vital Sign Reading Time Taken Comments Blood Pressure 123/73 06/12/2025 2:51 PM CDT Pulse 62 06/12/2025 2:51 PM CDT Temperature 36.3 C (97.4 F) 06/12/2025 2:51 PM CDT Respiratory Rate 16 06/12/2025 2:51 PM CDT Oxygen Saturation 95% 06/12/2025 2:51 PM CDT Inhaled Oxygen Concentration - - Weight 100.2 kg (221 lb) 06/12/2025 2:51 PM CDT Height 180.3 cm (5' 11) 06/12/2025 2:51 PM CDT Body Mass Index 30.82 06/12/2025 2:51 PM CDT Plan of Treatment Health Maintenance Due Date Last Done Comments Depression Screening 1955 Hepatitis C Screening 1955 DTaP/Tdap/Td Vaccine (1 - Tdap) 1965 Hepatitis B Screening 1972 Pneumococcal vaccine 65+ (1 of 2 - PCV) 1973 Zoster Vaccine (1 of 2) 2004 Well Visit 65+ 2019 Covid-19 Vaccine (3 - Pfizer risk series) 02/12/2021 01/15/2021, 12/18/2020 Influenza Vaccine (#1) 2025 Fall Risk Assessment 05/23/2026 05/23/2025 Prostate Cancer Screening-PSA 10/12/2026, 10/16/2023, 04/17/2023, Additional history exists Colon Cancer Screening-Colonoscopy 12/08/2031 12/07/2021, 10/25/2018 Colon Cancer Screening-CT Colonography Discontinued 12/07/2021, 10/25/2018 Colon Cancer Screening-DNA Stool Discontinued 12/08/19, 10/25/2018 Colon Cancer Screening-FIT Discontinued 12/07/2021, Colon Cancer Screening-Sigmoidoscopy Discontinued 12/07/2021, 10/25/2018 Abdominal Aortic Aneurysm (A AA) Screen Completed 11/23/2024, 10/22/2024, 02/29/2024, Additional history exists Medical Devices Implanted Type Area Machine Tack Puller Device Identifier Shelf Expiration Date Model / Serial / Lot Implantable Loop Recorder Implantable Loop Recorder Chest Mesh Mesh Abdomen Procedures Procedure Name Priority Date/Time Associated Diagnosis Comments DEVICE CHECK - REMOTE Routine 08/18/2025 12:52 PM ENVIRONMENTAL TEST TECHNICIAN Encounter for loop recorder check Cryptogenic stroke (HCC) SURGICAL PATHOLOGY Routine 08/05/2025 12 :00 AM CDT Neoplasm of uncertain behavior of skin MCT - MOBILE CARDIAC TELEMETRY EVENT MONITOR Routine 06/17/2025 10:05 AM CDT PVC (premature ventricular contraction) CT ABDOMEN PELVIS W CONTRAST ED 11/23/2024 4:42 PM ENVIRONMENTAL TEST TECHNICIAN PSA DIAGNOSTIC Routine 10/12/2024 8:50 AM ENVIRONMENTAL TEST TECHNICIAN Adenocarcinoma of prostate (CMS/HCC) (HCC) COLONOSCOPY 12/07/2021 8:21 AM ENVIRONMENTAL TEST TECHNICIAN from Last 3 Months or Most Recently Relevant to Health Maintenance Results * DEVICE CHECK - REMOTE (08/18/2025 12:52 PM ENVIRONMENTAL TEST TECHNICIAN) Anatomical Region Laterality Modality Other Narrative 09/01/2025 1:39 PM ENVIRONMENTAL TEST TECHNICIAN Table formatting from the original result was not included. This patient has a(n) García implantable property assessment monitor, implanted on 10/22/2024. Routine remote follow up done on 08/18/2025 Device implant indication: cryptogenic stroke Battery Status: ok Detection parameters: Remi Tachy Pause AF < 40 bpm > 160 bpm, 12 intervals > 5 s > 6 min Presenting rhythm: SR @ 60 bpm Episodes: 2 symptom/patient-initiated episode(s): fluttering on 07/14/2025 appears to be sinus rhythm with PACs: fluttering appears SR, low amplitude P waves, artifact Comments: See attached report for details. Anticoagulant: n/a Antiarrhythmic(s): Toprol XL Rere Bolanos RN Judd Valadez MD PhD [facility] [place] OCEDURES Final Result * Surgical pathology (08/05/2025 12:00 AM CDT) Tissue (Skin, shave biopsy) 08/05/2025 08/06/2025 12:34 PM CDT Narrative [facility] - 08/08/2025 4:16 PM CDT EPIC results best viewed via link to PDF [facility] [address] [place] [address], [address], [place] [address] [email or web address] Note to Patients: This report may contain a detailed description of human tissue sent by a health care provider to the laboratory for pathologic evaluation. The content of this report is essential for diagnosis and may provide important critical findings. This information may be unfamiliar to patients to review without a medical professional present. It is advised that the patient review this report in the presence of a health care provider who can answer questions and explain the details. FINAL REPORT Patient Information: PATIENT NAME: SHANA CROSS SEX: M : 1955 (Age: 69) Specimen Information: COLLECTED: 08/05/2025 RECEIVED: 08/06/2025 REPORTED: 08/08/2025 Submitting Physician Information: Hira Cespedes MD [address] [facility], [place], [place] [id number] , [phone] DERMATOPATHOLOGY REPORT RESULTS DIAGNOSIS: SKIN, RIGHT ANTITRAGUS, SHAVE BIOPSY: - ULCER SECONDARY TO EXCORIATION - SUPPURATIVE FOLLICULITIS Note: There is no evidence of a discrete neoplasm in these sections. exr/spng By this signature, I attest that the above diagnosis is based upon my personal examination of the slides(and/or other material indicated in the diagnosis). Doc Pearce MD, PhD Report Electronically Reviewed and Signed Out By Doc Pearce MD, PhD 08/08/2025 16:16:13 CLINICAL INFORMATION SCAR R/O BCC. SPECIMEN DATA MICROSCOPIC DESCRIPTION: There is an ulcer covered by fibrino-purulent scale-crust. Adjacent to the ulcer, there is hyperkeratosis and epidermal hyperplasia. There are numerous neutrophils within a hair follicle. (L73.9, R23.4) GROSS DESCRIPTION: Received in a formalin-containing bottle is a superficial fragment of pale garay and hair-bearing, finely scaling skin measuring 0.6 by 0.5 by 0.1 cm. The surgical margin is inked blue. The specimen is sectioned into 2 pieces and submitted entirely in a single cassette. Due to shrinkage, measurements may be different than those at time of procedure. djd/tyc Clerical Data A; 95181 The characteristics of special, immunohistochemical, and immunofluorescence stains and in-situ hybridization tests performed by the [facility] were deemed acceptable in ongoing quality improvement engineer measures and in compliance with regulations drawn from the Clinical Laboratory Improvement Act [id number] (CLIA '88). Control reactions for all stains performed were deemed adequate and appropriate by a pathologist prior to evaluation of patient tissue. Some diagnoses were rendered with the assistance of laboratory-developed tests utilizing analyte-specific reagents; the performance characteristic of these tests were determined by [facility] and are not cleared or approved by the [place] Food an Drug administration. Laboratory developed test may only be performed in a facility that is certified by the [facility] as a high-complexity laboratory under CLIA '88. These tests are used for clinical purposes and are not investigational. Hira Cespedes MD LAB PATHOLOGY ORDERAB LES Final Result [facility] [address] [place] [address] * MCT Mobile Cardiac Telemetry Event Monitor (06/17/2025 10:05 AM CDT) Anatomical Region Laterality Modality Electrocardiogra phy Narrative 07/08/2025 1:05 PM CDT The monitor was worn for 5 days, 3 hours and 49 minutes. The predominant rhythm is sinus rhythm with rates ranging between 43 and 129 beats per minute. The average rate of 64 beats per minute. No evidence of atrial fibrillation is noted. The PVC burden is less than 1% and the PAC burden is 1%. Luis Fox MD [facility] PROCEDURES Final Result * CT Abdomen Pelvis W Contrast (11/23/2024 4:42 PM ENVIRONMENTAL TEST TECHNICIAN) Anatomical Region Laterality Modality Body N/A Computed Tomogra phy 11/23/2024 5:57 PM ENVIRONMENTAL TEST TECHNICIAN Narrative 11/23/2024 6:05 PM ENVIRONMENTAL TEST TECHNICIAN EXAM DESCRIPTION: CT ABDOMEN PELVIS W CONTRAST [...] by Dirk Roblero M.D. T: Report ID: [id number] Reading Location: [place] [address] Procedure Note Dirk Roblero MD - 11/23/2024 [...] by Dirk Roblero M.D. T: Report ID: [id number] Reading Location: [place] [address] [facility] PROCEDURES Final Re sult * PSA diagnostic (10/12/2024 8:50 AM ENVIRONMENTAL TEST TECHNICIAN) PSA-Total 0.17 <=6.20 ng/mL Comment: Interpretive Data [...] last revised 22. Blood 10/12/2024 8:50 AM ENVIRONMENTAL TEST TECHNICIAN 10/12/2024 9:30 AM ENVIRONMENTAL TEST TECHNICIAN [place] Angela [place] BUYER INTERN LAB BLOOD ORDERABLES F inal Result [facility] Department [place] [address] * COLONOSCOPY (12/07/2021 8:21 AM ENVIRONMENTAL TEST TECHNICIAN) Anatomical Region Laterality Modality Other Narrative Procedure Note Kerwin Dawkins MD - 12/07/2021 8:21 AM CST [facility] Patient Name: Shana Cross Procedure Date: 12/07/2021 8:21 AM Date of : 1955 Admit Type: Outpatient Age: 66 Gender: Male Attending MD: Kerwin Dawkins M.D. Room: [facility] ENDOSCOPY ROOM 3 Note Status: Finalized Procedure: Colonoscopy Indications: Clinically significant diarrhea of unexplainedorigin Referring MD: Kurt Alexander D.O. Providers: Kerwin Dawkins M.D., Lacy Bansal M.D. Medicines: Monitored Anesthesia Care Complications: [...] On: 12/07/2021 8:21 AM Recognized by the [place] for promoting quality in endoscopy us Kerwin Dawkins MD ENDOSCOPY PROCEDURES Final Result from Last 3 Months or Most Recently Relevant to Health Maintenance Insurance [facility] MEDICARE ADVANTAGE MEDICARE RESEARCH [facility] MEDICARE ADVANTAGE [facility] MEDICARE AD[facility]ANT[facility] MEDICARE Address: [address] [address] [place] [address] [facility] MEDICARE ADVANTAGE [facility] MEDICARE Address: [address] [address] [place] [address] [facility] MEDICARE AD[facility]ANT[facility] MEDICARE Address: [address] [address] [place] [address] [facility] MEDICARE AD[facility]ANTAGE [facility] MEDICARE Address: [address] [address] [place] [address] [facility] MEDICARE AD[facility]ANTAGE [facility] MEDICARE Address: [address] [address] [place] [address] [facility] MEDICARE AD[facility]ANTAGE [facility] MEDICARE Address: [address] MEDICARE ADVANTAGE [facility] MEDICARE Address: [address] [address] [place] [id number] [address] MEDICARE ADVANTAGE [facility] MEDICARE Address: [address] [address] [place] [id number] [facility] MEDICARE ADVANTAGE [facility] MEDICARE Address: [place] [phone] [place] [address] Advance Directives For more information, please contact: [phone] * Full Code (Latest Code Status on File) Date Activated Date Inactivated Comments 05/22/2025 6:53 PM 05/23/2025 8:17 PM * Full Code Date Activated Date Inactivated Comments 11/23/2024 9:47 PM 11/25/2024 4:28 PM * Full Code Date Activated Date Inactivated Comments 11/06/2024 11:49 AM 11/07/2024 4:50 AM * Full Code Date Activated Date Inactivated Comments 10/28/2024 11:12 AM 10/28/2024 9:34 PM * Full Code Date Activated Date Inactivated Comments 04/07/2022 2:46 PM 04/09/2022 7:21 PM Care Teams Zipper Lining Folder Relationship Specialty Start Date End Date Jesus Morrow MD [address] [place] [address] PCP - General Family Practice 05/08/23 Omari Matthews MD Referring Physician Urology 08/17/18 Besise Blanco MD [address] [place] [address] Referring Physician Gastroenterology 12/13/18 Odalys Giron NP [address] [facility] [address] [place] [address] Nurse Practitioner Nurse Practitioner 02/19/21 Mike Cummings MD [address] [facility] [address] [place] [address] Consulting Physician Cardiovascular Disease 04/09/22 Kerwin Dawkins MD [address] [place] [address] Consulting Physician Gastroenterology 07/26/22 Oli Otero MD [address] [place] [address] Radiation Oncologist Radiation Oncology 04/14/23 Kevon Osborne MD [address] [facility], [address] [place] [address] Consulting Physician Retina Ophthalmology 08/07/25
--- OUTSIDE RECORDS SUMMARY | 2025-09-09 16:44 | XMS_ITS | Encounter Summary ---
Author Organization [facility] Healthcare Address [address] [place] [address] Care Team Providers Care Terrazzo Layer Helper Name Role Phone Omari Matthews MD Unavailable [phone] Bessie Blanco MD Unavailable [phone] Odalys Giron NP Unavailable Mike Cummings MD Unavailable Kerwin Dawkins MD Unavailable [phone] Oli Otero MD Unavailable [phone] Jesus Morrow MD Primary Care Provider [phone] Kevon Osborne MD Unavailable [phone] Encounter Details Date Type Department Care Team (Late st Contact Info) Description 06/16/2025 Telephone [facility] Medical Group Cardiology [address] [facility] [address] [address] Luis Fox MD [address] [place] [id number] Social History Tobacco Use Types Packs/Day Years Used Date Smoking Tobacco: Some Days Cigars Started: 1989 Smokeless Tobacco: Never Comments:6-7 cigars daily Alcohol Use Standard Drinks/Week Comments Yes 0 (1 standard drink = 0.6 oz pur e alcohol) binge drinks every other month [facility] Utilities Answer Date Recorded In the past 12 months has [employer] electric, gas, oil, or water company threatened [...] often do you attend chur ch or scientology services? Never 11/25/2024 Do you belong to any clubs o r organizations such as rastafarian groups, unions, fraternal or athletic groups, or [...] time in the past 12 m [facility], were you homeless or living in a fpc (including now)? No 11/25/2024 Personal Safety Answer Date Recorded Have you ever been in or are you currently in a harmful physical or emotional relationship or is someone making you feel afraid or unsafe? 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 Not on f ile Not on file documented as of this encounter Plan of Treatment Not on file documented as of this encounter Visit Diagnoses Not on filedocumented in this encounter Care Teams Terrazzo Layer Helper Relationship Specialty Start Date End Date Jesus Morrow MD [address] [place] [address] PCP - General Family Practice 05/08/23 Omari Matthews MD Referring Physician Urology 08/17/18 Bessie Blanco MD [address] [place] [address] Referring Physician Gastroenterology 12/13/18 Odalys Giron NP [address] [place] [address] Nurse Practitioner Nurse Practitioner 02/19/21 Mike Cummings MD [address] [place] [address] Consulting Physician Cardiovascular Disease 04/09/22 Kerwin Dawkins MD [address] [place] [address] Consulting Physician Gastroenterology 07/26/22 Oli Otero MD [address] [place] [address] Radiation Oncologist Radiation Oncology 04/14/23 Kevon Osborne MD [address] [facility], [address] [place] [address] Consulting Physician Retina Ophthalmology 08/07/25 documented as of this encounter
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
--- OUTSIDE RECORDS SUMMARY | 2025-09-09 16:44 | XMS_ITS | Clinical Summary ---
Author Organization [facility] Address [address] [facility] [place] [address] Care Team Providers Care Excelsior Machine Operator Name Role Phone Jesus Martins MD Primary Care Provider [phone] Source Comments [facility],non-owned Affiliates and Associated Physician Practices is amultiple site organization consisting of ambulatory clinics and hospital sitesin [place], [place], [place] and [place]. This disclosure is being madepursuant to the Care Everywhere program and may not contain all information available regarding this patient. Last updated 18.[facility] [employer] Allergies Active Allergy Reactions Criticality Noted Date Comments Lidocaine Unknown 10/21/2024 Wasp Venom Swelling Medium 12/21/2020 Medications * Be aware that medications may not be up to date on this document. Alwaysverify current medications with the patient. metoprolol succinate XL 24hr (Toprol XL) 25 MG tablet Take 1 (one) tablet by mouth once daily Active fenofibrate (Lofibra) [...] tablet by mouth once daily 90 tablet 5 Active atorvastatin (Lipitor) 40 MG tablet Take 1 (one) tablet by mouth at bedtime 90 tablet 10/30/2024 9:47 AM ACCOUNT LIAISON 5 Active HYDROcodone-ayush taminophen ([place]) 7.5-325 MG tablet Take 1 (one) tablet by mouth every 6 hours as needed pain 5 Active Multiple Vitamin (Multi-Vitamins ) TABS Take 1 (one) tablet by mouth once daily Active sildenafil (Viagra) 100 MG tablet Take 1 (one) tablet by mouth once daily as needed FOR ERECTILE DYSFUNCTION 4 Active pantoprazole EC (Protonix) 40 MG tablet Take 1 (one) tablet by mouth every morning 5 Active Active Problems Problem Noted Date Diagnosed Date Vision loss of left eye 10/21/2024 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, unspecified complication status 10/21/2024 PVC (premature ventricular contraction) 10/21/19 25 Anxiety 10/21/2024 HLD (hyperlipidemia) 10/21/2024 GERD (gastroesophageal reflux disease) 5 CVA (cerebral vascular accident) 10/21/2024 Vitreous degeneration 11/26/2013 Paving stone degeneration of left retina 014 Encounters Date Type Department Care Team Description 08/07/2025 Telephone [facility] - Centralized Scheduling [address] [place] [address] Rene Lares MD Reschedule Appointment (08/07-Left message ) to yungule Arnaud's 12/23/25 appt- reschedule with Evelyne--same day or next available-No MyChart-Code --DLM-MS/08/08-L eft message on )-DLM-/10/15-Left message--3rd attempt--mailed reschedule letter--Cancelled--DLM- MS) from Last 3 Months Social History Tobacco Use Types Packs/Day Years Used Date Smoking Tobacco: Every Day Cigars Tobacco Cessation:Ready to Q uit: Not Asked; Counseling Given: Not Answered Alcohol Use Standard Drinks/Week Comments No 0 (1 standard drink = 0.6 oz pur e alcohol) Sex and Gender Information Value Date Recorded Sex Assigned at Not on file Legal Sex Male 6:23 PM ACCOUNT LIAISON Gender Identity Not on file Sexual Orientation Not on file Last Filed Vital Signs Vital Sign Reading Time Taken Comments Blood Pressure 132/73 01/06/2025 1:56 PM CDT Pulse 61 01/06/2025 1:56 PM CDT Temperature 36.6 C (97.9 F) 10/22/2024 5:00 PM ACCOUNT LIAISON Respiratory Rate 12 01/06/2025 1:56 PM CDT Oxygen Saturation 97% 10/22/2024 5:00 PM ACCOUNT LIAISON Inhaled Oxygen Concentration - - Weight 104.8 kg (231 lb) 01/06/2025 1:56 PM CDT Height 180.3 cm (5' 11) 01/06/2025 1:56 PM CDT Body Mass Index 32.22 01/06/2025 1:56 PM CDT Plan of Treatment Health Maintenance Due Date Last Done Comments COLOGUARD (AGES 45-75) - COL ON CA SCREENING 1955 CT COLONOGRAPHY - COLON CA SCREENING 1955 FIT - COLON CA SCREENING 1955 FLEX SIG - COLON CA SCREENING 1955 HEPATITIS C SCREENING 10/04/1972 DTAP/TDAP/TD VACCINES (1 - Tdap) 1973 PNEUMOCOCCAL VACCINE 50+ (1 of 2 - PCV) 1973 ZOSTER VACCINE (1 of 2) 2004 AAA SCREENING 2019 DEPRESSION SCREENING 2024 MEDICARE AWV CALENDAR YEAR 2024 COVID-19 VACCINE (3 - 2024-2 6 season) 2025 01/15/2021, 12/18/2020 INFLUENZA VACCINE (#1) 2025 SCREENING FOR DIABETES 10/22/2027 , 10/21/2024, 10/21/2024 Respiratory Syncytial Virus (RSV) Vaccine Pt: or over 60 yrs (1 - 1-dose 75+ series) 2029 COLON MONITORING 12/08/2031 12/07/2021 COLONOSCOPY - COLON CA SCREENING 12/08/2031 12/07/2021 [...] this topic Medical Devices Implanted Type Area Financial Service Professional Device Identifier Shelf Expiration Date Model / Serial / Lot Bullet Frag Abdomen Description:ULQ-not clear pe r Rad Dev Crd 9.4mmx46.5mm Assert-Iq Thk3.1mm - [id number] Implanted:Qty: 1 on 10/22/2024 by Dwight Rios MD at [facility] Left: Chest Wall [employer] [id number] 01/23/2026 [id number] / [id number] / [id number] Procedures Procedure Name Priority Date/Time Associated Diagnosis Comments BASIC METABOLIC PANEL (CALCIUM TOTAL) STAT 10/22/2024 4:55 AM ACCOUNT LIAISON Central retinal artery occlusion of left eye from Last 3 Months or Most Recently Relevant to Health Maintenance Results * (ABNORMAL) BASIC METABOLIC PANEL (CALCIUM TOTAL) (10/22/2024 4:55 AM ACCOUNT LIAISON) BUN 11 7 - 26 mg/dL 10/22/2024 5:27 AM [facility] Creatinine 1.11 0.71 - 1.16 mg/dL 10/22/2024 5:27 AM [facility] Sodium 139 136 - 145 mmol/L 10/22/2024 5:27 AM [facility] Potassium 3.8 3.5 - 4.5 mmol/L 10/22/2024 5:27 AM [facility] Chloride 109(H) 98 - 107 mmol/L 10/22/2024 5:27 AM [facility] CO2 24 22 - 29 mmol/L 10/22/2024 5:27 AM [facility] Glucose 98 70 - 99 mg/dL 10/22/2024 5:27 AM [facility] Calcium 8.9 8.4 - 10.2 mg/dL 10/22/2024 5:27 AM [facility] Anion Gap 6 6 - 16 10/22/2024 5:27 AM [facility] BUN/Creatinine Ratio 10 7 - 23 10/22/2024 5:27 AM [facility] Osmolality Calculated 287 275 - 295 mOsm/kg 10/22/2024 5:27 AM [facility] eGFR by CKD-EPI 71(L) >=90 mL/min/1.7 3 m2 10/22/2024 5:27 AM [facility] Blood BLOOD SPECIMEN / Unknown Venipuncture / Unknown 10/22/2024 4:55 AM ACCOUNT LIAISON 10/22/2024 4:58 AM [facility] us Kelly Newsome MD LAB - CHEMISTRY ORDERABLES F inal Result [facility] [address] [place] [address], [facility] [phone] from Last 3 Months or Most Recently Relevant to Health Maintenance Insurance [facility] MANAGED MEDICARE ADV Advance Directives * Full Code (Latest Code Status on File) Date Activated Date Inactivated Comments 10/21/2024 9:04 PM 10/22/2024 6:44 PM Care Teams Excelsior Machine Operator Relationship Specialty Start Date End Date Jesus Martins MD [address] [address] [place] [address] PCP - General Neurological Surgery 10/21/24
--- OUTSIDE RECORDS SUMMARY | 2025-09-09 16:44 | XMS_ITS | Encounter Summary ---
Author Organization [facility] Healthcare Address [address] [place] [address] Care Team Providers Care Sap Fico Architect Name Role Phone Omari Matthews MD Unavailable [phone] Bessie Blanco MD Unavailable [phone] Odalys Giron NP Unavailable Mike Cummings MD Unavailable Kerwin Dawkins MD Unavailable [phone] Oli Otero MD Unavailable [phone] Jesus Morrow MD Primary Care Provider [phone] Kevon Osborne MD Unavailable [phone] Encounter Details Date Type Department Care Team (Late st Contact Info) Description 11/04/2024 Telephone [facility] Cardiac Cctv Technician [address] [place] [address] Stanley Wright MD [address] [address] Social History Tobacco Use Types [...] on file Legal Sex Male 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 Gender Identity Not on file Sexual Orientation Not on file Occupation Industry Job Start Date Job End 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 Not on file Not on f ile Not on file documented as of this encounter Functional Status * Question Answer Date of Assessment Author MAP (mmHg) 100 11/06/2024 1:15 PM Violette Porras RN * Becerra Fall Risk Question Answer Date of Assessment Author History of Falling 0 11/06/2024 9:44 AM Violette Porras RN Secondary Diagnosis 0 11/06/2024 9:44 AM Violette Reaves RN Ambulatory Aids 0 11/06/2024 9:44 AM Violette Martínez Ma, RN Intravenous Therapy/Heparin/Saline Lock 20 11/06/2024 9:44 AM Barney Porras RN Gait/Transferring 0 11/06/2024 9:44 AM Violette Porras RN Mental Status 0 11/06/2024 9:44 AM Violette John RN Morse Fall Risk Score (Score >= 45 places fall precaution order) 20 11/06/2024 9:44 AM Violette Porras RN Prior Fall Event (Autopopulated from EMR) None found 11/06/2024 9:44 AM Diamond Porras RN * Fall Risk Interventions Question Answer Date of Assessment Author All Low Fall Interventions Applied Yes 11/06/2024 9:44 AM Violette Porras RN * Question Answer Date of Assessment Author Skin Color Appropriate for ethnicity 11/06/2024 9:49 AM Violette Porras RN Skin Condition/Temp Warm 11/06/2024 9:49 AM CS T Kaden, Violette K., RN * Fall Risk Interventions Question Answer Date of Assessment Author All Low Fall Interventions Applied Yes 11/06/2024 9:44 AM Violette Porras, RN * ADL Screening Question Answer Date of Assessment Author Patient's Vision Adequate to Safely Complete Daily Activities Yes 11/06/2024 9:43 AM Violette Porras, BELLA Patient's Judgement Adequate to Safely Complete Daily Activities Yes 11/06/2024 9:43 AM Tevin Porras, RN Patient's Memory Adequate to Safely Complete Daily Activities Yes 11/06/2024 9:43 AM Violette Porras, RN Patient Able to Express Needs/Desires Yes 11/06/2024 9:43 AM Violette Porras, RN Dressing Independent 11/06/2024 9:43 AM Violette Porras, RN Grooming Independent 11/06/2024 9:43 AM Violette Porras, RN Feeding Independent 11/06/2024 9:43 AM Violette Porras, RN Bathing Independent 11/06/2024 9:43 AM Violette Porras, RN Toileting Independent 11/06/2024 9:43 AM Violette Porras, RN In/Out Bed Independent 11/06/2024 9:43 AM Violette Porras, RN Walks in Home Independent 11/06/2024 9:43 AM Violette John, RN Weakness of Legs None 11/06/2024 9:43 AM Violette Ferreira RN Weakness of Arms/Hands None 11/06/2024 9:43 AM Violette Porras, RN Hearing - Right Ear Functional 11/06/2024 9:43 AM CS T Violette Alfonso, RN Hearing - Left Ear Functional 11/06/2024 9:43 AM Violette Porras, RN Dominant hand? Right 11/06/2024 9:43 AM Violette Rojo, RN Decline in ADLs in last 2 weeks? No 11/06/2024 9:43 AM Violette Porras, RN * Assistive Devices Question Answer Date of Assessment Author Assistive Devices/DME Eyeglasses 11/06/2024 9:43 AM [employer] Violette Alfonso RN documented as of this encounter Plan of Treatment Not on file documented as of this encounter Visit Diagnoses Not on filedocumented in this encounter Care Teams Sap Fico Architect Relationship Specialty Start Date End Date Jesus Morrow MD [address] [place] [address] PCP - General Family Practice 05/08/23 Omari Matthews MD Referring Physician Urology 08/17/18 Bessie Blanco MD [address] [facility] [address] [place] [address] Referring Physician Gastroenterology 12/13/18 Odalys Giron NP [address] [facility] [address] [place] [address] Nurse Practitioner Nurse Practitioner 02/19/21 Mike Cummings MD [address] [facility] [address] [place] [address] Consulting Physician Cardiovascular Disease 04/09/22 Kerwin Dawkins MD [address] [place] [address] Consulting Physician Gastroenterology 07/26/22 Oli Otero MD [address] [place] [address] Radiation Oncologist Radiation Oncology 04/14/23 Kevon Osborne MD [address] [facility] DEPT OPHTHALMOLOGY, [address] [place] [address] Consulting Physician Retina Ophthalmology 08/07/25 documented as of this encounter
--- OUTSIDE RECORDS SUMMARY | 2025-09-09 16:44 | XMS_ITS | Encounter Summary ---
Author Organization [facility] Health Address [address] [facility] [place] [address] Care Team Providers Care Inventory Control Planner Name Role Phone Jesus Martins MD Primary Care Provider [phone] Encounter Details Date Type Department Care Team (Late st Contact Info) Description 10/21/2024 Ophth Exam [facility] - Ophthalmology [address] [place] [id number] Rodri Zuñiga, DO [address] [facility] [place] [address] Social History Tobacco Use Types Packs/Day Years Used Date Smoking Tobacco: Every Day Cigarettes Alcohol Use Standard Drinks/Week Comments No 0 (1 standard drink = 0.6 oz pur e alcohol) Sex and Gender Information Value Date Recorded Sex Assigned at Not on file Legal Sex Male 6:23 PM 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 [place] [address] PCP - General Neurological Surgery 10/21/24 documented as of this encounter
== END 2025-09-09 15:36 | disposition home or self-care (01) ==
PROVIDERS: PCP Nurse Practitioner Family; Visit Provider Nurse Practitioner Family
DX: J02.9 Acute pharyngitis, unspecified (principal); R05.9 Cough, unspecified
CPT/HCPCS: 87637; 87651